=== PATIENT | female | born 1985 | race Caucasian/White ===

== ENCOUNTER 2018-01-10 11:32 | Observation (INO) | payer OTHER, SELFPAY ==
[2018-01-10] VITALS (18 sets, daily range): BP systolic 89–118; BP diastolic 44–73; PULSE 69–121; RESP 10–19; TEMP 36–36.9; O2SAT 95–100; BMI 24.6; BMI 26.2
--- NOTE | 2018-01-10 13:00 | ED.ABDPAIN ---
HPI - Abdominal Pain <Adrianne Jim PA-C - Last Filed: 01/10/18 21:39> General Chief Complaint: Abdominal Pain Stated Complaint: 14 WEEKS , PAIN IN UPPER ABDOMEN Time Seen by Provider: 01/10/18 12:55 Source: patient, family and old records reviewed Mode of arrival: ambulatory Limitations: no limitations History of Present Illness HPI narrative: This 32-year-old female with a history of multiple miscarriage and now at 14 weeks comes in today due to a 3 day history of pain just above the umbilicus. She states it has been tender to touch. She has not noted any increased swelling or redness but states she does have a history of a small hernia there which she can usually reduced on her own if she has pain. She states she has had a little bit of tenderness around her flanks for the last couple of days but this is mild. She has had ongoing nausea with vomiting 5-6 times daily throughout her , but this is worse in the last few days. She states that she has not kept down any food or fluids in the last 2 days. She has not vomited more frequently but he is heaving more. She states that she had a new diagnosis of IBD just prior to learning that she was , so has not had further workup to delineate this yet. She states she has not had any hematuria, dysuria or frequency. She has not had any change in her bowel movements or blood in the stools. She has not had chest pain or dyspnea. She has not had any spotting or vaginal discharge. She denies fever, cough or any recent illness or other new symptoms today. Related Data Home Medications Medication Instructions Recorded Confirmed esomeprazole magnesium [Nexium] 40 mg PO QDAY #0 03/29/16 01/10/18 hydrocodone-acetaminophen 0 tab PO Q6HP PRN 01/10/18 01/10/18 Previous Rx's Medication Instructions Recorded ondansetron [Zofran ODT] 4 mg SUBLINGUAL Q6HP PRN #20 odt 07/25/17 Allergies Allergy/AdvReac Type Severity Reaction Status Date / Time amoxicillin [AMOXICILLIN] Allergy Severe nausea and Verified 01/10/18 17:55 vomiting aspirin Allergy Severe Eye Verified 01/10/18 17:56 [From EXCEDRIN BACK AND BODY] swelling calcium carbonate Allergy Severe eye Verified 01/10/18 17:56 [From EXCEDRIN BACK AND BODY] swelling codeine [CODEINE] Allergy Severe nausea and Verified 01/10/18 17:56 vomiting phenazopyridine Allergy Severe lip Verified 01/10/18 17:56 [From PYRIDIUM] swelling tramadol [TRAMADOL] Allergy Severe nausea and Verified 01/10/18 17:56 vomiting Review of Systems <ROBERTO Valladares Last Filed: 01/10/18 21:39> Review of Systems All systems reviewed & are unremarkable except as noted in HPI and below Exam <ROBERTO Valladares Last Filed: 01/10/18 21:39> Narrative Exam Narrative: GENERAL APPEARANCE: Patient resting comfortably, in no distress. HEENT: PERRL, EOMI, no scleral icterus NECK: Supple LUNGS: Clear to auscultation bilaterally. HEART: Rate and rhythm regular, normal S1 and S2, no S3 or S4. ABDOMEN: Soft, nondistended, bowel sounds present x 4 quadrants, no masses palpable, no hepatosplenomegaly. She is exquisitely tender with even light palpation around the umbilicus, especially just proximal and just distal. No guarding or rebound. No suprapubic tenderness or CVAT. EXTREMITIES: No edema, no cyanosis DERMATOLOGIC: No jaundice or exanthem NEUROLOGIC: Alert and oriented with normal speech and coordination Initial Vital Signs Initial Vital Signs: Vital Signs Pulse Rate 80 01/10/18 12:19 Respiratory Rate 16 01/10/18 12:19 Blood Pressure 101/58 L 01/10/18 12:19 Pulse Oximetry 100 01/10/18 12:19 <Ronal Mayfield DO - Last Filed: 01/12/18 07:18> Initial Vital Signs Initial Vital Signs: Vital Signs Pulse Rate 80 01/10/18 12:19 Respiratory Rate 16 01/10/18 12:19 Blood Pressure 101/58 L 01/10/18 12:19 Pulse Oximetry 100 01/10/18 12:19 Course <ROBERTO Valladares Last Filed: 01/10/18 21:39> Orders Ordered: Discontinued Medications Hydrocodone Bitart/Acetaminophen (Witter 5/325) 1 tab PO NOW ONE Stop: 01/10/18 15:25 Last Admin: 01/10/18 15:41 Dose: 1 tab Hydrocodone Bitart/Acetaminophen (Witter 5/325) 1 tab PO Q6H PRN PRN Reason: Pain (Scale Score 7-10) Last Admin: 01/11/18 16:49 Dose: 1 tab Admin: 01/11/18 00:01 Dose: 1 tab Admin: 01/10/18 20:57 Dose: 1 tab Hydrocodone Bitart/Acetaminophen (Witter 5/325) 2 tab PO Q6H PRN PRN Reason: Pain, Severe (7-10) Last Admin: 01/11/18 16:51 Dose: 2 tab Admin: 01/11/18 12:57 Dose: 2 tab Admin: 01/11/18 05:58 Dose: 2 tab Bisacodyl (Dulcolax) 10 mg IA NOW ONE Stop: 01/11/18 10:18 Last Admin: 01/11/18 11:09 Dose: 10 mg Bupivacaine HCl (Sensorcaine 0.5% (Pf)) 30 ml INJ NOW ONE Stop: 01/10/18 19:20 Last Admin: 01/10/18 19:20 Dose: 20 ml Diphenhydramine HCl (Benadryl) 25 mg IV NOW ONE Stop: 01/10/18 13:25 Last Admin: 01/10/18 19:56 Dose: 25 mg Admin: 01/10/18 13:45 Dose: 25 mg Diphenhydramine HCl (Benadryl) 25 mg IV NOW ONE Stop: 01/10/18 16:56 Last Admin: 01/10/18 16:58 Dose: 25 mg Diphenhydramine HCl (Benadryl) 25 mg IV Q6H PRN PRN Reason: Itching Last Admin: 01/11/18 08:35 Dose: 25 mg Admin: 01/11/18 04:28 Dose: 25 mg Admin: 01/10/18 22:13 Dose: 25 mg Fentanyl (Sublimaze) 25 mcg IV Q5MIN PRN PRN Reason: Pain, Mild (1-3) Last Admin: 01/10/18 20:03 Dose: 25 mcg Admin: 01/10/18 19:43 Dose: 25 mcg Fentanyl (Sublimaze) 50 mcg IV Q5MIN PRN PRN Reason: Pain, Moderate (4-6) Last Admin: 01/10/18 20:11 Dose: 50 mcg Admin: 01/10/18 19:57 Dose: 50 mcg Sodium Chloride (Normal Saline 0.9%) 1,000 mls @ 1,000 mls/hr IV BOLUS ONE Stop: 01/10/18 14:19 Last Infusion: 01/10/18 14:56 Dose: 0 mls/hr Admin: 01/10/18 13:45 Dose: 1,000 mls/hr Sodium Chloride (Normal Saline 0.9%) 1,000 mls @ 1,000 mls/hr IV BOLUS ONE Stop: 01/10/18 15:56 Last Infusion: 01/10/18 15:41 Dose: 0 mls/hr Admin: 01/10/18 15:00 Dose: 1,000 mls/hr Lactated Ringer's (Lactated Ringers) 1,000 mls @ 42 mls/hr IV CONT [facility] Last Admin: 01/10/18 17:35 Dose: 42 mls/hr Dextrose/Sodium Chloride (Dextrose 5%-0.45% Ns) 1,000 mls @ 75 mls/hr IV CONT [facility] Last Admin: 01/11/18 08:41 Dose: 75 mls/hr Promethazine HCl 25 mg/ Sodium (Chloride) 51 mls @ 204 mls/hr IV Q6HR PRN PRN Reason: Nausea Last Admin: 01/11/18 11:33 Dose: 204 mls/hr Metoclopramide HCl (Reglan) 10 mg IV NOW ONE Stop: 01/10/18 17:08 Last Admin: 01/10/18 17:28 Dose: 10 mg Morphine Sulfate (Morphine) 2 mg IV NOW ONE Stop: 01/11/18 08:14 Last Admin: 01/11/18 09:04 Dose: 2 mg Non-Formulary Medication (Esomeprazole Magnesium [Nexium]) 40 mg PO DAILY [facility] Last Admin: 01/11/18 08:35 Dose: Ondansetron HCl (Zofran Odt) 4 mg PO Q4HR PRN PRN Reason: Nausea Last Admin: 01/11/18 16:45 Dose: 4 mg Admin: 01/10/18 13:12 Dose: 4 mg Ondansetron HCl (Zofran) 4 mg IV NOW ONE Stop: 01/10/18 16:56 Last Admin: 01/10/18 19:55 Dose: 4 mg Admin: 01/10/18 16:58 Dose: 4 mg Ondansetron HCl (Zofran Odt) 4 mg PO Q6H PRN PRN Reason: Nausea Last Admin: 01/11/18 04:36 Dose: 4 mg Admin: 01/10/18 22:13 Dose: 4 mg Ondansetron HCl (Zofran Odt) 8 mg PO Q8HR PRN PRN Reason: Nausea Last Admin: 01/11/18 16:46 Dose: 8 mg Admin: 01/11/18 08:36 Dose: 8 mg Oxycodone HCl (Percolone) 5 mg PO Q30MIN PRN PRN Reason: Mild or moderate pain Sodium Chloride (Normal Saline 0.9% Flush) 10 ml IV BID FRANCHESCA Last Admin: 01/11/18 08:34 Dose: 10 ml Sodium Chloride (Normal Saline 0.9% Flush) 10 ml IV PRN PRN PRN Reason: Flush Last Admin: 01/11/18 04:28 Dose: 10 ml Admin: 01/11/18 00:15 Dose: 10 ml Vital Signs - 8 hr 01/10/18 14:36 01/10/18 16:01 01/10/18 17:29 Temperature 98.1 F Pulse Rate 71 70 90 Respiratory Rate 16 14 16 Blood Pressure 109/71 Blood Pressure [Left Arm] 89/44 L 103/72 Pulse Oximetry 99 99 95 01/10/18 19:30 01/10/18 19:35 01/10/18 19:40 Temperature 96.8 F L Pulse Rate 91 H 69 74 Respiratory Rate 14 14 11 L Blood Pressure 103/63 92/59 L 97/58 L Blood Pressure [Left Arm] Pulse Oximetry 100 100 100 01/10/18 19:45 01/10/18 19:50 01/10/18 20:00 Temperature Pulse Rate 78 91 H 75 Respiratory Rate 11 L 14 10 L Blood Pressure 106/67 114/73 112/62 Blood Pressure [Left Arm] Pulse Oximetry 100 100 100 01/10/18 20:10 01/10/18 20:39 01/10/18 21:13 Temperature 97.4 F L 97.6 F 97.8 F Pulse Rate 90 81 77 Respiratory Rate 16 18 19 Blood Pressure 101/63 118/69 105/62 Blood Pressure [Left Arm] Pulse Oximetry 100 100 <Ronal Lanker, DO - Last Filed: 01/12/18 07:18> Orders Ordered: Discontinued Medications Hydrocodone Bitart/Acetaminophen (Witter 5/325) 1 tab PO NOW ONE Stop: 01/10/18 15:25 Last Admin: 01/10/18 15:41 Dose: 1 tab Hydrocodone Bitart/Acetaminophen (Witter 5/325) 1 tab PO Q6H PRN PRN Reason: Pain (Scale Score 7-10) Last Admin: 01/11/18 16:49 Dose: 1 tab Admin: 01/11/18 00:01 Dose: 1 tab Admin: 01/10/18 20:57 Dose: 1 tab Hydrocodone Bitart/Acetaminophen (Witter 5/325) 2 tab PO Q6H PRN PRN Reason: Pain, Severe (7-10) Last Admin: 01/11/18 16:51 Dose: 2 tab Admin: 01/11/18 12:57 Dose: 2 tab Admin: 01/11/18 05:58 Dose: 2 tab Bisacodyl (Dulcolax) 10 mg IA NOW ONE Stop: 01/11/18 10:18 Last Admin: 01/11/18 11:09 Dose: 10 mg Bupivacaine HCl (Sensorcaine 0.5% (Pf)) 30 ml INJ NOW ONE Stop: 01/10/18 19:20 Last Admin: 01/10/18 19:20 Dose: 20 ml Diphenhydramine HCl (Benadryl) 25 mg IV NOW ONE Stop: 01/10/18 13:25 Last Admin: 01/10/18 19:56 Dose: 25 mg Admin: 01/10/18 13:45 Dose: 25 mg Diphenhydramine HCl (Benadryl) 25 mg IV NOW ONE Stop: 01/10/18 16:56 Last Admin: 01/10/18 16:58 Dose: 25 mg Diphenhydramine HCl (Benadryl) 25 mg IV Q6H PRN PRN Reason: Itching Last Admin: 01/11/18 08:35 Dose: 25 mg Admin: 01/11/18 04:28 Dose: 25 mg Admin: 01/10/18 22:13 Dose: 25 mg Fentanyl (Sublimaze) 25 mcg IV Q5MIN PRN PRN Reason: Pain, Mild (1-3) Last Admin: 01/10/18 20:03 Dose: 25 mcg Admin: 01/10/18 19:43 Dose: 25 mcg Fentanyl (Sublimaze) 50 mcg IV Q5MIN PRN PRN Reason: Pain, Moderate (4-6) Last Admin: 01/10/18 20:11 Dose: 50 mcg Admin: 01/10/18 19:57 Dose: 50 mcg Sodium Chloride (Normal Saline 0.9%) 1,000 mls @ 1,000 mls/hr IV BOLUS ONE Stop: 01/10/18 14:19 Last Infusion: 01/10/18 14:56 Dose: 0 mls/hr Admin: 01/10/18 13:45 Dose: 1,000 mls/hr Sodium Chloride (Normal Saline 0.9%) 1,000 mls @ 1,000 mls/hr IV BOLUS ONE Stop: 01/10/18 15:56 Last Infusion: 01/10/18 15:41 Dose: 0 mls/hr Admin: 01/10/18 15:00 Dose: 1,000 mls/hr Lactated Ringer's (Lactated Ringers) 1,000 mls @ 42 mls/hr IV [facility] Last Admin: 01/10/18 17:35 Dose: 42 mls/hr Dextrose/Sodium Chloride (Dextrose 5%-0.45% Ns) 1,000 mls @ 75 mls/hr IV CONT [facility] Last Admin: 01/11/18 08:41 Dose: 75 mls/hr Promethazine HCl 25 mg/ Sodium (Chloride) 51 mls @ 204 mls/hr IV Q6HR PRN PRN Reason: Nausea Last Admin: 01/11/18 11:33 Dose: 204 mls/hr Metoclopramide HCl (Reglan) 10 mg IV NOW ONE Stop: 01/10/18 17:08 Last Admin: 01/10/18 17:28 Dose: 10 mg Morphine Sulfate (Morphine) 2 mg IV NOW ONE Stop: 01/11/18 08:14 Last Admin: 01/11/18 09:04 Dose: 2 mg Non-Formulary Medication (Esomeprazole Magnesium [Nexium]) 40 mg PO DAILY [facility] Last Admin: 01/11/18 08:35 Dose: Ondansetron HCl (Zofran Odt) 4 mg PO Q4HR PRN PRN Reason: Nausea Last Admin: 01/11/18 16:45 Dose: 4 mg Admin: 01/10/18 13:12 Dose: 4 mg Ondansetron HCl (Zofran) 4 mg IV NOW ONE Stop: 01/10/18 16:56 Last Admin: 01/10/18 19:55 Dose: 4 mg Admin: 01/10/18 16:58 Dose: 4 mg Ondansetron HCl (Zofran Odt) 4 mg PO Q6H PRN PRN Reason: Nausea Last Admin: 01/11/18 04:36 Dose: 4 mg Admin: 01/10/18 22:13 Dose: 4 mg Ondansetron HCl (Zofran Odt) 8 mg PO Q8HR PRN PRN Reason: Nausea Last Admin: 01/11/18 16:46 Dose: 8 mg Admin: 01/11/18 08:36 Dose: 8 mg Oxycodone HCl (Percolone) 5 mg PO Q30MIN PRN PRN Reason: Mild or moderate pain Sodium Chloride (Normal Saline 0.9% Flush) 10 ml IV BID FRANCHESCA Last Admin: 01/11/18 08:34 Dose: 10 ml Sodium Chloride (Normal Saline 0.9% Flush) 10 ml IV PRN PRN PRN Reason: Flush Last Admin: 01/11/18 04:28 Dose: 10 ml Admin: 01/11/18 00:15 Dose: 10 ml Vital Signs - 8 hr 01/10/18 14:36 01/10/18 16:01 01/10/18 17:29 Temperature 98.1 F Pulse Rate 71 70 90 Respiratory Rate 16 14 16 Blood Pressure 109/71 Blood Pressure [Left Arm] 89/44 L 103/72 Pulse Oximetry 99 99 95 01/10/18 19:30 01/10/18 19:35 01/10/18 19:40 Temperature 96.8 F L Pulse Rate 91 H 69 74 Respiratory Rate 14 14 11 L Blood Pressure 103/63 92/59 L 97/58 L Blood Pressure [Left Arm] Pulse Oximetry 100 100 100 01/10/18 19:45 01/10/18 19:50 01/10/18 20:00 Temperature Pulse Rate 78 91 H 75 Respiratory Rate 11 L 14 10 L Blood Pressure 106/67 114/73 112/62 Blood Pressure [Left Arm] Pulse Oximetry 100 100 100 01/10/18 20:10 01/10/18 20:39 01/10/18 21:13 Temperature 97.4 F L 97.6 F 97.8 F Pulse Rate 90 81 77 Respiratory Rate 16 18 19 Blood Pressure 101/63 118/69 105/62 Blood Pressure [Left Arm] Pulse Oximetry 100 100 MDM - Abdominal Pain <Adrianne Jim PA-C - Last Filed: 01/10/18 21:39> Lab Data Result diagrams: 01/10/18 13:35 01/10/18 13:35 Lab Results 01/10/18 01/10/18 01/10/18 Range/Units 13:35 13:35 14:00 WBC 7.2 (4.5-11.0) X10^3/uL RBC 3.99 L (4.0-5.2) X10^6/uL Hgb 12.2 (12.0-16.0) g/dL Hct 35.3 L (36-46) % MCV 88.5 (80-100) fL MCH 30.6 (26-34) PG MCHC 34.5 (30-36) % RDW 13.0 (11.6-14.8) % Plt Count 234 (150-400) X10^3/uL Neut % (Auto) 77.5 H (50-75) % Lymph % (Auto) 17.9 L (25-40) % [place] % (Auto) 3.9 (3-14) % Eos % (Auto) 0.4 L (2-4) % Baso % (Auto) 0.3 (0-2) % Neut # (Auto) 5600 (0350-6889) /uL Sodium 138 (137-145) mmol/L Potassium 3.5 (3.4-5.1) mmol/L Chloride 102 (98-107) mmol/L Carbon Dioxide 26 (22-32) mmol/L BUN 10 (7-17) mg/dL Creatinine 0.50 L (0.52-1.04) mg/dL Estimated GFR > 60.0 (>60) mL/min BUN/Creatinine Ratio 20.0 (6-22) Glucose 79 (70-100) mg/dL Lactate < 0.5 L (0.7-2.1) mmol/L Calcium 8.6 (8.4-10.2) mg/dL Total Bilirubin 0.4 (0.2-1.3) mg/dL AST 16 (14-36) IU/L ALT 19 (9-52) IU/L Alkaline Phosphatase 48 (38-126) U/L Total Protein 7.0 (6.3-8.2) g/dL Albumin 3.9 (3.5-5.0) g/dL Globulin 3.1 (1.7-4.1) g/dL Albumin/Globulin Ratio 1.3 (1.0-2.8) Lipase 80 (23-300) U/L Imaging Data US - abdomen: Radiologist's impression: View Report History Print [address] [address] Ultrasound Report Signed Patient: Sepideh Scott MR#: [id number] : 1985 Acct:[id number] Age/Sex: 32 / F Date of Service: 01/10/18 Loc: ED Accession Number: [id number] Procedure: US abdomen complete Ordering Provider: Adrianne Jim P.A-C PROCEDURE: US ABDOMEN COMPLETE INDICATIONS: PERIUMBILICAL HERNIA; PAIN TECHNIQUE: Real-time scanning was performed of the abdominal and retroperitoneal organs, with image documentation. COMPARISON: [facility], , ABDOMEN COMPLETE, 07/25/2017, 11:09. [facility], , US OB LIMITED, 01/10/2018, 14:25. FINDINGS: Liver: Liver is normal in size and homogeneous in echotexture. Gallbladder: No gallstones. No gallbladder wall thickening, pericholecystic fluid or sonographic Carreon's sign. Biliary ducts: Intrahepatic bile ducts are non-dilated. Extrahepatic bile duct caliber measures 4.1 mm. Normal is 6-7 mm or less in diameter, or 10 mm or less post-cholecystectomy. Pancreas: Visualized portions of the pancreas are sonographically normal. Spleen: Spleen is normal in size and homogeneous in echotexture. Kidneys: Kidneys are normal in size and echotexture. Right kidney measures 10.8 cm long; left kidney measures 10.0 cm long. No hydronephrosis or nephrolithiasis. No solid masses. Aorta: Visualized aorta is normal in caliber at less than 3 cm. Iliacs: Proximal common iliac arteries are normal in caliber at less than 2.5 cm. IVC: Intrahepatic inferior vena cava is patent. Miscellaneous: No free abdominal fluid. There is a periumbilical hernia measuring 1.7 x 1.7 x 2.0 cm, which may contain follow up. Thin intrauterine is noted (please see separate OB ultrasound report). IMPRESSION: 1. A 1.7 x 1.7 x 2.0 cm periumbilical hernia which may contain bowel loops. 2. Otherwise normal abdominal ultrasound exam. No acute intra-abdominal process identified. 3. An IUP is noted. Please see separate OB ultrasound report. Dictated by: Óscar Jones M.D. on 01/10/2018 at 15:23 Approved by: Óscar Jones M.D. on 01/10/2018 at 15:28 [place] [address] Ultrasound Report Signed Patient: Sepideh Scott MR#: [id number] : 1985 Acct:[id number] Age/Sex: 32 / F Date of Service: 01/10/18 Loc: ED Accession Number: [id number] Procedure: US OB >= 14 weeks Fetus Ordering Provider: Adrianne Jim P.A-C PROCEDURE: US OB LIMITED INDICATIONS: pain, mult misc OUTSIDE/PRIOR DATING DATA: Last menstrual period (LMP): 10/04/2017. LMP-based estimated date of delivery (MONSERRAT): 07/11/2018. First dating scan (date and location): 01/10/2018. Estimated date of delivery (MONSERRAT) from first dating scan: 07/04/2018. TECHNIQUE: Real-time scanning was performed of the fetus, with image documentation and biometric measurements. Endovaginal scanning: Not requested COMPARISON: None. FINDINGS: General: A single living intrauterine gestation is present. Presentation: A vertex. Placenta: Placental position is anterior, without previa. Amniotic fluid index: Not measured. heart rate: 152 beats per minute. Maternal cervical canal: Not visualized. biometrics: Biparietal diameter: 15 weeks 3 days Head circumference: 15 weeks 1 day Abdominal circumference: 14 weeks 6 days Femur length: 14 weeks 2 days Estimated gestational age from initial scan: not applicable. Composite gestational age from present scan: 15 weeks 0 day Estimated weight and percentile: n.a. Measurement variability for biometric dating: +/- 7 days from 14 weeks to 15 weeks 6 days gestation, +/- 10 days from 16 weeks to 21 weeks 6 days gestation, +/- 2 weeks from 22 weeks to 27 weeks 6 days gestation, +/- 3 weeks for 28 weeks gestation or later. weight reference: 4500 g or EFW >90/95% is considered macrosomia or large for gestational age. EFW <10% is small for gestational age. EFW 5% or less is considered intra-uterine growth restriction. Other: Not applicable. IMPRESSION: 1. A single living intrauterine gestation with the estimated gestational age of 15 weeks 0 day corresponding to ultrasound MONSERRAT 07/04/2018. 2. Fetus in vertex presentation. Cervix is not visualized. Dictated by: Óscar Jones M.D. on 01/10/2018 at 15:29 Approved by: Óscar Jones M.D. on 01/10/2018 at 15:34 <Ronal Mayfield DO - Last Filed: 01/12/18 07:18> Lab Data Lab Results 01/10/18 01/10/18 01/10/18 Range/Units 13:35 13:35 14:00 WBC 7.2 (4.5-11.0) X10^3/uL RBC 3.99 L (4.0-5.2) X10^6/uL Hgb 12.2 (12.0-16.0) g/dL Hct 35.3 L (36-46) % MCV 88.5 (80-100) fL MCH 30.6 (26-34) PG MCHC 34.5 (30-36) % RDW 13.0 (11.6-14.8) % Plt Count 234 (150-400) X10^3/uL Neut % (Auto) 77.5 H (50-75) % Lymph % (Auto) 17.9 L (25-40) % [place] % (Auto) 3.9 (3-14) % Eos % (Auto) 0.4 L (2-4) % Baso % (Auto) 0.3 (0-2) % Neut # (Auto) 5600 (5500-7576) /uL Sodium 138 (137-145) mmol/L Potassium 3.5 (3.4-5.1) mmol/L Chloride 102 (98-107) mmol/L Carbon Dioxide 26 (22-32) mmol/L BUN 10 (7-17) mg/dL Creatinine 0.50 L (0.52-1.04) mg/dL Estimated GFR > 60.0 (>60) mL/min BUN/Creatinine Ratio 20.0 (6-22) Glucose 79 (70-100) mg/dL Lactate < 0.5 L (0.7-2.1) mmol/L Calcium 8.6 (8.4-10.2) mg/dL Total Bilirubin 0.4 (0.2-1.3) mg/dL AST 16 (14-36) IU/L ALT 19 (9-52) IU/L Alkaline Phosphatase 48 (38-126) U/L Total Protein 7.0 (6.3-8.2) g/dL Albumin 3.9 (3.5-5.0) g/dL Globulin 3.1 (1.7-4.1) g/dL Albumin/Globulin Ratio 1.3 (1.0-2.8) Lipase 80 (23-300) U/L Discharge Plan Departure Patient Disposition: Admitted As Inpatient Discharge Date/Time: 01/10/18 17:21 Interventions: ED Discharge Assessment Last Done: 01/10/18 17:19 Instructions: Ventral Hernia, DI for Ventral Hernia Admit Date/Time: 01/10/18 17:09 Admit Provider: Raffy Hong Forms: Surgery Discharge <Ronal Mayfield DO - Last Filed: 01/12/18 07:18> Cosign ED Attending Abdirizakature Attestation: I was available for consultation during this patient's emergency department encounter
[2018-01-10] MEDS: ONDANSETRON 4 MG ODT PO ×2 (13:12→22:13)
--- NOTE | 2018-01-10 13:19 | DI.US.S_ITS ---
PROCEDURE: US OB LIMITED INDICATIONS: pain, mult misc OUTSIDE/PRIOR DATING DATA: Last menstrual period (LMP): 10/04/2017. LMP-based estimated date of delivery (MONSERRAT): 07/11/2018. First dating scan (date and location): 01/10/2018. Estimated date of delivery (MONSERRAT) from first dating scan: 07/04/2018. TECHNIQUE: Real-time scanning was performed of the fetus, with image documentation and biometric measurements. Endovaginal scanning: Not requested COMPARISON: None. FINDINGS: General: A single living intrauterine gestation is present. Presentation: A vertex. Placenta: Placental position is anterior, without previa. Amniotic fluid index: Not measured. heart rate: 152 beats per minute. Maternal cervical canal: Not visualized. biometrics: Biparietal diameter: 15 weeks 3 days Head circumference: 15 weeks 1 day Abdominal circumference: 14 weeks 6 days Femur length: 14 weeks 2 days Estimated gestational age from initial scan: not applicable. Composite gestational age from present scan: 15 weeks 0 day Estimated weight and percentile: n.a. Measurement variability for biometric dating: +/- 7 days from 14 weeks to 15 weeks 6 days gestation, +/- 10 days from 16 weeks to 21 weeks 6 days gestation, +/- 2 weeks from 22 weeks to 27 weeks 6 days gestation, +/- 3 weeks for 28 weeks gestation or later. weight reference: 4500 g or EFW >90/95% is considered macrosomia or large for gestational age. EFW <10% is small for gestational age. EFW 5% or less is considered intra-uterine growth restriction. Other: Not applicable. IMPRESSION: 1. A single living intrauterine gestation with the estimated gestational age of 15 weeks 0 day corresponding to ultrasound MONSERRAT 07/04/2018. 2. Fetus in vertex presentation. Cervix is not visualized. Dictated by: Óscar Jones M.D. on 01/10/2018 at 15:29 Approved by: Óscar Jones M.D. on 01/10/2018 at 15:34
--- NOTE | 2018-01-10 13:19 | DI.US.S_ITS ---
PROCEDURE: US ABDOMEN COMPLETE INDICATIONS: PERIUMBILICAL HERNIA; PAIN TECHNIQUE: Real-time scanning was performed of the abdominal and retroperitoneal organs, with image documentation. COMPARISON: [facility], US, ABDOMEN COMPLETE, 07/25/2017, 11:09. [facility], US, US OB LIMITED, 01/10/2018, 14:25. FINDINGS: Liver: Liver is normal in size and homogeneous in echotexture. Gallbladder: No gallstones. No gallbladder wall thickening, pericholecystic fluid or sonographic Carreon's sign. Biliary ducts: Intrahepatic bile ducts are non-dilated. Extrahepatic bile duct caliber measures 4.1 mm. Normal is 6-7 mm or less in diameter, or 10 mm or less post-cholecystectomy. Pancreas: Visualized portions of the pancreas are sonographically normal. Spleen: Spleen is normal in size and homogeneous in echotexture. Kidneys: Kidneys are normal in size and echotexture. Right kidney measures 10.8 cm long; left kidney measures 10.0 cm long. No hydronephrosis or nephrolithiasis. No solid masses. Aorta: Visualized aorta is normal in caliber at less than 3 cm. Iliacs: Proximal common iliac arteries are normal in caliber at less than 2.5 cm. IVC: Intrahepatic inferior vena cava is patent. Miscellaneous: No free abdominal fluid. There is a periumbilical hernia measuring 1.7 x 1.7 x 2.0 cm, which may contain follow up. Thin intrauterine is noted (please see separate OB ultrasound report). IMPRESSION: 1. A 1.7 x 1.7 x 2.0 cm periumbilical hernia which may contain bowel loops. 2. Otherwise normal abdominal ultrasound exam. No acute intra-abdominal process identified. 3. An IUP is noted. Please see separate OB ultrasound report. Dictated by: Óscar Jones M.D. on 01/10/2018 at 15:23 Approved by: Óscar Jones M.D. on 01/10/2018 at 15:28
--- NOTE | 2018-01-10 13:24 | ED_ITS ---
HPI - Abdominal Pain <Adrianne Jim PA-C - Last Filed: 01/10/18 21:39> General Chief Complaint: Abdominal Pain Stated Complaint: 14 WEEKS , PAIN IN UPPER ABDOMEN Time Seen by Provider: 01/10/18 12:55 Source: patient, family and old records reviewed Mode of arrival: ambulatory Limitations: no limitations History of Present Illness HPI narrative: This 32-year-old female with a history of multiple miscarriage and now at 14 weeks comes in today due to a 3 day history of pain just above the umbilicus. She states it has been tender to touch. She has not noted any increased swelling or redness but states she does have a history of a small hernia there which she can usually reduced on her own if she has pain. She states she has had a little bit of tenderness around her flanks for the last couple of days but this is mild. She has had ongoing nausea with vomiting 5-6 times daily throughout her , but this is worse in the last few days. She states that she has not kept down any food or fluids in the last 2 days. She has not vomited more frequently but he is heaving more. She states that she had a new diagnosis of IBD just prior to learning that she was , so has not had further workup to delineate this yet. She states she has not had any hematuria, dysuria or frequency. She has not had any change in her bowel movements or blood in the stools. She has not had chest pain or dyspnea. She has not had any spotting or vaginal discharge. She denies fever, cough or any recent illness or other new symptoms today. Related Data Home Medications Medication Instructions Recorded Confirmed esomeprazole magnesium [Nexium] 40 mg PO QDAY #0 03/29/16 01/10/18 hydrocodone-acetaminophen 0 tab PO Q6HP PRN 01/10/18 01/10/18 Previous Rx's Medication Instructions Recorded ondansetron [Zofran ODT] 4 mg SUBLINGUAL Q6HP PRN #20 odt 07/25/17 Allergies Allergy/AdvReac Type Severity Reaction Status Date / Time amoxicillin [AMOXICILLIN] Allergy Severe nausea and Verified 01/10/18 17:55 vomiting aspirin Allergy Severe Eye Verified 01/10/18 17:56 [From EXCEDRIN BACK AND BODY] swelling calcium carbonate Allergy Severe eye Verified 01/10/18 17:56 [From EXCEDRIN BACK AND BODY] swelling codeine [CODEINE] Allergy Severe nausea and Verified 01/10/18 17:56 vomiting phenazopyridine Allergy Severe lip Verified 01/10/18 17:56 [From PYRIDIUM] swelling tramadol [TRAMADOL] Allergy Severe nausea and Verified 01/10/18 17:56 vomiting Review of Systems <ROBERTO Valladares Last Filed: 01/10/18 21:39> Review of Systems All systems reviewed & are unremarkable except as noted in HPI and below Exam <ROBERTO Valladares Last Filed: 01/10/18 21:39> Narrative Exam Narrative: GENERAL APPEARANCE: Patient resting comfortably, in no distress. HEENT: PERRL, EOMI, no scleral icterus NECK: Supple LUNGS: Clear to auscultation bilaterally. HEART: Rate and rhythm regular, normal S1 and S2, no S3 or S4. ABDOMEN: Soft, nondistended, bowel sounds present x 4 quadrants, no masses palpable, no hepatosplenomegaly. She is exquisitely tender with even light palpation around the umbilicus, especially just proximal and just distal. No guarding or rebound. No suprapubic tenderness or CVAT. EXTREMITIES: No edema, no cyanosis DERMATOLOGIC: No jaundice or exanthem NEUROLOGIC: Alert and oriented with normal speech and coordination Initial Vital Signs Initial Vital Signs: Vital Signs Pulse Rate 80 01/10/18 12:19 Respiratory Rate 16 01/10/18 12:19 Blood Pressure 101/58 L 01/10/18 12:19 Pulse Oximetry 100 01/10/18 12:19 <Ronal Mayfield DO - Last Filed: 01/12/18 07:18> Initial Vital Signs Initial Vital Signs: Vital Signs Pulse Rate 80 01/10/18 12:19 Respiratory Rate 16 01/10/18 12:19 Blood Pressure 101/58 L 01/10/18 12:19 Pulse Oximetry 100 01/10/18 12:19 Course <ROBERTO Valladares Last Filed: 01/10/18 21:39> Orders Ordered: Discontinued Medications Hydrocodone Bitart/Acetaminophen ([place] 5/325) 1 tab PO NOW ONE Stop: 01/10/18 15:25 Last Admin: 01/10/18 15:41 Dose: 1 tab Hydrocodone Bitart/Acetaminophen ([place] 5/325) 1 tab PO Q6H PRN PRN Reason: Pain (Scale Score 7-10) Last Admin: 01/11/18 16:49 Dose: 1 tab Admin: 01/11/18 00:01 Dose: 1 tab Admin: 01/10/18 20:57 Dose: 1 tab Hydrocodone Bitart/Acetaminophen ([place] 5/325) 2 tab PO Q6H PRN PRN Reason: Pain, Severe (7-10) Last Admin: 01/11/18 16:51 Dose: 2 tab Admin: 01/11/18 12:57 Dose: 2 tab Admin: 01/11/18 05:58 Dose: 2 tab Bisacodyl (Dulcolax) 10 mg TN NOW ONE Stop: 01/11/18 10:18 Last Admin: 01/11/18 11:09 Dose: 10 mg Bupivacaine HCl (Sensorcaine 0.5% (Pf)) 30 ml INJ NOW ONE Stop: 01/10/18 19:20 Last Admin: 01/10/18 19:20 Dose: 20 ml Diphenhydramine HCl (Benadryl) 25 mg IV NOW ONE Stop: 01/10/18 13:25 Last Admin: 01/10/18 19:56 Dose: 25 mg Admin: 01/10/18 13:45 Dose: 25 mg Diphenhydramine HCl (Benadryl) 25 mg IV NOW ONE Stop: 01/10/18 16:56 Last Admin: 01/10/18 16:58 Dose: 25 mg Diphenhydramine HCl (Benadryl) 25 mg IV Q6H PRN PRN Reason: Itching Last Admin: 01/11/18 08:35 Dose: 25 mg Admin: 01/11/18 04:28 Dose: 25 mg Admin: 01/10/18 22:13 Dose: 25 mg Fentanyl (Sublimaze) 25 mcg IV Q5MIN PRN PRN Reason: Pain, Mild (1-3) Last Admin: 01/10/18 20:03 Dose: 25 mcg Admin: 01/10/18 19:43 Dose: 25 mcg Fentanyl (Sublimaze) 50 mcg IV Q5MIN PRN PRN Reason: Pain, Moderate (4-6) Last Admin: 01/10/18 20:11 Dose: 50 mcg Admin: 01/10/18 19:57 Dose: 50 mcg Sodium Chloride (Normal Saline 0.9%) 1,000 mls @ 1,000 mls/hr IV BOLUS ONE Stop: 01/10/18 14:19 Last Infusion: 01/10/18 14:56 Dose: 0 mls/hr Admin: 01/10/18 13:45 Dose: 1,000 mls/hr Sodium Chloride (Normal Saline 0.9%) 1,000 mls @ 1,000 mls/hr IV BOLUS ONE Stop: 01/10/18 15:56 Last Infusion: 01/10/18 15:41 Dose: 0 mls/hr Admin: 01/10/18 15:00 Dose: 1,000 mls/hr Lactated Ringer's (Lactated Ringers) 1,000 mls @ 42 mls/hr IV CONT [facility] Last Admin: 01/10/18 17:35 Dose: 42 mls/hr Dextrose/Sodium Chloride (Dextrose 5%-0.45% Ns) 1,000 mls @ 75 mls/hr IV CONT [facility] Last Admin: 01/11/18 08:41 Dose: 75 mls/hr Promethazine HCl 25 mg/ Sodium (Chloride) 51 mls @ 204 mls/hr IV Q6HR PRN PRN Reason: Nausea Last Admin: 01/11/18 11:33 Dose: 204 mls/hr Metoclopramide HCl (Reglan) 10 mg IV NOW ONE Stop: 01/10/18 17:08 Last Admin: 01/10/18 17:28 Dose: 10 mg Morphine Sulfate (Morphine) 2 mg IV NOW ONE Stop: 01/11/18 08:14 Last Admin: 01/11/18 09:04 Dose: 2 mg Non-Formulary Medication (Esomeprazole Magnesium [Nexium]) 40 mg PO DAILY [facility] Last Admin: 01/11/18 08:35 Dose: Ondansetron HCl (Zofran Odt) 4 mg PO Q4HR PRN PRN Reason: Nausea Last Admin: 01/11/18 16:45 Dose: 4 mg Admin: 01/10/18 13:12 Dose: 4 mg Ondansetron HCl (Zofran) 4 mg IV NOW ONE Stop: 01/10/18 16:56 Last Admin: 01/10/18 19:55 Dose: 4 mg Admin: 01/10/18 16:58 Dose: 4 mg Ondansetron HCl (Zofran Odt) 4 mg PO Q6H PRN PRN Reason: Nausea Last Admin: 01/11/18 04:36 Dose: 4 mg Admin: 01/10/18 22:13 Dose: 4 mg Ondansetron HCl (Zofran Odt) 8 mg PO Q8HR PRN PRN Reason: Nausea Last Admin: 01/11/18 16:46 Dose: 8 mg Admin: 01/11/18 08:36 Dose: 8 mg Oxycodone HCl (Percolone) 5 mg PO Q30MIN PRN PRN Reason: Mild or moderate pain Sodium Chloride (Normal Saline 0.9% Flush) 10 ml IV BID FRANCHESCA Last Admin: 01/11/18 08:34 Dose: 10 ml Sodium Chloride (Normal Saline 0.9% Flush) 10 ml IV PRN PRN PRN Reason: Flush Last Admin: 01/11/18 04:28 Dose: 10 ml Admin: 01/11/18 00:15 Dose: 10 ml Vital Signs - 8 hr 01/10/18 14:36 01/10/18 16:01 01/10/18 17:29 Temperature 98.1 F Pulse Rate 71 70 90 Respiratory Rate 16 14 16 Blood Pressure 109/71 Blood Pressure [Left Arm] 89/44 L 103/72 Pulse Oximetry 99 99 95 01/10/18 19:30 01/10/18 19:35 01/10/18 19:40 Temperature 96.8 F L Pulse Rate 91 H 69 74 Respiratory Rate 14 14 11 L Blood Pressure 103/63 92/59 L 97/58 L Blood Pressure [Left Arm] Pulse Oximetry 100 100 100 01/10/18 19:45 01/10/18 19:50 01/10/18 20:00 Temperature Pulse Rate 78 91 H 75 Respiratory Rate 11 L 14 10 L Blood Pressure 106/67 114/73 112/62 Blood Pressure [Left Arm] Pulse Oximetry 100 100 100 01/10/18 20:10 01/10/18 20:39 01/10/18 21:13 Temperature 97.4 F L 97.6 F 97.8 F Pulse Rate 90 81 77 Respiratory Rate 16 18 19 Blood Pressure 101/63 118/69 105/62 Blood Pressure [Left Arm] Pulse Oximetry 100 100 <Ronal Lanker, DO - Last Filed: 01/12/18 07:18> Orders Ordered: Discontinued Medications Hydrocodone Bitart/Acetaminophen ([place] 5/325) 1 tab PO NOW ONE Stop: 01/10/18 15:25 Last Admin: 01/10/18 15:41 Dose: 1 tab Hydrocodone Bitart/Acetaminophen ([place] 5/325) 1 tab PO Q6H PRN PRN Reason: Pain (Scale Score 7-10) Last Admin: 01/11/18 16:49 Dose: 1 tab Admin: 01/11/18 00:01 Dose: 1 tab Admin: 01/10/18 20:57 Dose: 1 tab Hydrocodone Bitart/Acetaminophen ([place] 5/325) 2 tab PO Q6H PRN PRN Reason: Pain, Severe (7-10) Last Admin: 01/11/18 16:51 Dose: 2 tab Admin: 01/11/18 12:57 Dose: 2 tab Admin: 01/11/18 05:58 Dose: 2 tab Bisacodyl (Dulcolax) 10 mg TN NOW ONE Stop: 01/11/18 10:18 Last Admin: 01/11/18 11:09 Dose: 10 mg Bupivacaine HCl (Sensorcaine 0.5% (Pf)) 30 ml INJ NOW ONE Stop: 01/10/18 19:20 Last Admin: 01/10/18 19:20 Dose: 20 ml Diphenhydramine HCl (Benadryl) 25 mg IV NOW ONE Stop: 01/10/18 13:25 Last Admin: 01/10/18 19:56 Dose: 25 mg Admin: 01/10/18 13:45 Dose: 25 mg Diphenhydramine HCl (Benadryl) 25 mg IV NOW ONE Stop: 01/10/18 16:56 Last Admin: 01/10/18 16:58 Dose: 25 mg Diphenhydramine HCl (Benadryl) 25 mg IV Q6H PRN PRN Reason: Itching Last Admin: 01/11/18 08:35 Dose: 25 mg Admin: 01/11/18 04:28 Dose: 25 mg Admin: 01/10/18 22:13 Dose: 25 mg Fentanyl (Sublimaze) 25 mcg IV Q5MIN PRN PRN Reason: Pain, Mild (1-3) Last Admin: 01/10/18 20:03 Dose: 25 mcg Admin: 01/10/18 19:43 Dose: 25 mcg Fentanyl (Sublimaze) 50 mcg IV Q5MIN PRN PRN Reason: Pain, Moderate (4-6) Last Admin: 01/10/18 20:11 Dose: 50 mcg Admin: 01/10/18 19:57 Dose: 50 mcg Sodium Chloride (Normal Saline 0.9%) 1,000 mls @ 1,000 mls/hr IV BOLUS ONE Stop: 01/10/18 14:19 Last Infusion: 01/10/18 14:56 Dose: 0 mls/hr Admin: 01/10/18 13:45 Dose: 1,000 mls/hr Sodium Chloride (Normal Saline 0.9%) 1,000 mls @ 1,000 mls/hr IV BOLUS ONE Stop: 01/10/18 15:56 Last Infusion: 01/10/18 15:41 Dose: 0 mls/hr Admin: 01/10/18 15:00 Dose: 1,000 mls/hr Lactated Ringer's (Lactated Ringers) 1,000 mls @ 42 mls/hr IV CONT [facility] Last Admin: 01/10/18 17:35 Dose: 42 mls/hr Dextrose/Sodium Chloride (Dextrose 5%-0.45% Ns) 1,000 mls @ 75 mls/hr IV CONT [facility] Last Admin: 01/11/18 08:41 Dose: 75 mls/hr Promethazine HCl 25 mg/ Sodium (Chloride) 51 mls @ 204 mls/hr IV Q6HR PRN PRN Reason: Nausea Last Admin: 01/11/18 11:33 Dose: 204 mls/hr Metoclopramide HCl (Reglan) 10 mg IV NOW ONE Stop: 01/10/18 17:08 Last Admin: 01/10/18 17:28 Dose: 10 mg Morphine Sulfate (Morphine) 2 mg IV NOW ONE Stop: 01/11/18 08:14 Last Admin: 01/11/18 09:04 Dose: 2 mg Non-Formulary Medication (Esomeprazole Magnesium [Nexium]) 40 mg PO DAILY [facility] Last Admin: 01/11/18 08:35 Dose: Ondansetron HCl (Zofran Odt) 4 mg PO Q4HR PRN PRN Reason: Nausea Last Admin: 01/11/18 16:45 Dose: 4 mg Admin: 01/10/18 13:12 Dose: 4 mg Ondansetron HCl (Zofran) 4 mg IV NOW ONE Stop: 01/10/18 16:56 Last Admin: 01/10/18 19:55 Dose: 4 mg Admin: 01/10/18 16:58 Dose: 4 mg Ondansetron HCl (Zofran Odt) 4 mg PO Q6H PRN PRN Reason: Nausea Last Admin: 01/11/18 04:36 Dose: 4 mg Admin: 01/10/18 22:13 Dose: 4 mg Ondansetron HCl (Zofran Odt) 8 mg PO Q8HR PRN PRN Reason: Nausea Last Admin: 01/11/18 16:46 Dose: 8 mg Admin: 01/11/18 08:36 Dose: 8 mg Oxycodone HCl (Percolone) 5 mg PO Q30MIN PRN PRN Reason: Mild or moderate pain Sodium Chloride (Normal Saline 0.9% Flush) 10 ml IV BID FRANCHESCA Last Admin: 01/11/18 08:34 Dose: 10 ml Sodium Chloride (Normal Saline 0.9% Flush) 10 ml IV PRN PRN PRN Reason: Flush Last Admin: 01/11/18 04:28 Dose: 10 ml Admin: 01/11/18 00:15 Dose: 10 ml Vital Signs - 8 hr 01/10/18 14:36 01/10/18 16:01 01/10/18 17:29 Temperature 98.1 F Pulse Rate 71 70 90 Respiratory Rate 16 14 16 Blood Pressure 109/71 Blood Pressure [Left Arm] 89/44 L 103/72 Pulse Oximetry 99 99 95 01/10/18 19:30 01/10/18 19:35 01/10/18 19:40 Temperature 96.8 F L Pulse Rate 91 H 69 74 Respiratory Rate 14 14 11 L Blood Pressure 103/63 92/59 L 97/58 L Blood Pressure [Left Arm] Pulse Oximetry 100 100 100 01/10/18 19:45 01/10/18 19:50 01/10/18 20:00 Temperature Pulse Rate 78 91 H 75 Respiratory Rate 11 L 14 10 L Blood Pressure 106/67 114/73 112/62 Blood Pressure [Left Arm] Pulse Oximetry 100 100 100 01/10/18 20:10 01/10/18 20:39 01/10/18 21:13 Temperature 97.4 F L 97.6 F 97.8 F Pulse Rate 90 81 77 Respiratory Rate 16 18 19 Blood Pressure 101/63 118/69 105/62 Blood Pressure [Left Arm] Pulse Oximetry 100 100 MDM - Abdominal Pain <Adrianne Jim PA-C - Last Filed: 01/10/18 21:39> Lab Data Result diagrams: 01/10/18 13:35 01/10/18 13:35 Lab Results 01/10/18 01/10/18 01/10/18 Range/Units 13:35 13:35 14:00 WBC 7.2 (4.5-11.0) X10^3/uL RBC 3.99 L (4.0-5.2) X10^6/uL Hgb 12.2 (12.0-16.0) g/dL Hct 35.3 L (36-46) % MCV 88.5 (80-100) fL MCH 30.6 (26-34) PG MCHC 34.5 (30-36) % RDW 13.0 (11.6-14.8) % Plt Count 234 (150-400) X10^3/uL Neut % (Auto) 77.5 H (50-75) % Lymph % (Auto) 17.9 L (25-40) % [place] % (Auto) 3.9 (3-14) % Eos % (Auto) 0.4 L (2-4) % Baso % (Auto) 0.3 (0-2) % Neut # (Auto) 5600 (0494-2823) /uL Sodium 138 (137-145) mmol/L Potassium 3.5 (3.4-5.1) mmol/L Chloride 102 (98-107) mmol/L Carbon Dioxide 26 (22-32) mmol/L BUN 10 (7-17) mg/dL Creatinine 0.50 L (0.52-1.04) mg/dL Estimated GFR > 60.0 (>60) mL/min BUN/Creatinine Ratio 20.0 (6-22) Glucose 79 (70-100) mg/dL Lactate < 0.5 L (0.7-2.1) mmol/L Calcium 8.6 (8.4-10.2) mg/dL Total Bilirubin 0.4 (0.2-1.3) mg/dL AST 16 (14-36) IU/L ALT 19 (9-52) IU/L Alkaline Phosphatase 48 (38-126) U/L Total Protein 7.0 (6.3-8.2) g/dL Albumin 3.9 (3.5-5.0) g/dL Globulin 3.1 (1.7-4.1) g/dL Albumin/Globulin Ratio 1.3 (1.0-2.8) Lipase 80 (23-300) U/L Imaging Data US - abdomen: Radiologist's impression: View Report History Print [address] [address] Ultrasound Report Signed Patient: Sepideh Scott MR#: [id number] : 1985 Acct:[id number] Age/Sex: 32 / F Date of Service: 01/10/18 Loc: ED Accession Number: [id number] Procedure: US abdomen complete Ordering Provider: Adrianne Jim P.A-C PROCEDURE: US ABDOMEN COMPLETE INDICATIONS: PERIUMBILICAL HERNIA; PAIN TECHNIQUE: Real-time scanning was performed of the abdominal and retroperitoneal organs, with image documentation. COMPARISON: [facility], , ABDOMEN COMPLETE, 07/25/2017, 11:09. [facility], , US OB LIMITED, 01/10/2018, 14:25. FINDINGS: Liver: Liver is normal in size and homogeneous in echotexture. Gallbladder: No gallstones. No gallbladder wall thickening, pericholecystic fluid or sonographic Carreon's sign. Biliary ducts: Intrahepatic bile ducts are non-dilated. Extrahepatic bile duct caliber measures 4.1 mm. Normal is 6-7 mm or less in diameter, or 10 mm or less post-cholecystectomy. Pancreas: Visualized portions of the pancreas are sonographically normal. Spleen: Spleen is normal in size and homogeneous in echotexture. Kidneys: Kidneys are normal in size and echotexture. Right kidney measures 10.8 cm long; left kidney measures 10.0 cm long. No hydronephrosis or nephrolithiasis. No solid masses. Aorta: Visualized aorta is normal in caliber at less than 3 cm. Iliacs: Proximal common iliac arteries are normal in caliber at less than 2.5 cm. IVC: Intrahepatic inferior vena cava is patent. Miscellaneous: No free abdominal fluid. There is a periumbilical hernia measuring 1.7 x 1.7 x 2.0 cm, which may contain follow up. Thin intrauterine is noted (please see separate OB ultrasound report). IMPRESSION: 1. A 1.7 x 1.7 x 2.0 cm periumbilical hernia which may contain bowel loops. 2. Otherwise normal abdominal ultrasound exam. No acute intra-abdominal process identified. 3. An IUP is noted. Please see separate OB ultrasound report. Dictated by: Óscar Jones M.D. on 01/10/2018 at 15:23 Approved by: Óscar Jones M.D. on 01/10/2018 at 15:28 [place] [address] Ultrasound Report Signed Patient: Sepideh Scott MR#: [id number] : 1985 Acct:[id number] Age/Sex: 32 / F Date of Service: 01/10/18 Loc: ED Accession Number: [id number] Procedure: US OB >= 14 weeks Fetus Ordering Provider: Adrianne iJm P.A-C PROCEDURE: US OB LIMITED INDICATIONS: pain, mult misc OUTSIDE/PRIOR DATING DATA: Last menstrual period (LMP): 10/04/2017. LMP-based estimated date of delivery (MONSERRAT): 07/11/2018. First dating scan (date and location): 01/10/2018. Estimated date of delivery (MONSERRAT) from first dating scan: 07/04/2018. TECHNIQUE: Real-time scanning was performed of the fetus, with image documentation and biometric measurements. Endovaginal scanning: Not requested COMPARISON: None. FINDINGS: General: A single living intrauterine gestation is present. Presentation: A vertex. Placenta: Placental position is anterior, without previa. Amniotic fluid index: Not measured. heart rate: 152 beats per minute. Maternal cervical canal: Not visualized. biometrics: Biparietal diameter: 15 weeks 3 days Head circumference: 15 weeks 1 day Abdominal circumference: 14 weeks 6 days Femur length: 14 weeks 2 days Estimated gestational age from initial scan: not applicable. Composite gestational age from present scan: 15 weeks 0 day Estimated weight and percentile: n.a. Measurement variability for biometric dating: +/- 7 days from 14 weeks to 15 weeks 6 days gestation, +/- 10 days from 16 weeks to 21 weeks 6 days gestation, +/- 2 weeks from 22 weeks to 27 weeks 6 days gestation, +/- 3 weeks for 28 weeks gestation or later. weight reference: 4500 g or EFW >90/95% is considered macrosomia or large for gestational age. EFW <10% is small for gestational age. EFW 5% or less is considered intra-uterine growth restriction. Other: Not applicable. IMPRESSION: 1. A single living intrauterine gestation with the estimated gestational age of 15 weeks 0 day corresponding to ultrasound MONSERRAT 07/04/2018. 2. Fetus in vertex presentation. Cervix is not visualized. Dictated by: Óscar Jones M.D. on 01/10/2018 at 15:29 Approved by: Óscar Jones M.D. on 01/10/2018 at 15:34 <Ronal Mayfield DO - Last Filed: 01/12/18 07:18> Lab Data Lab Results 01/10/18 01/10/18 01/10/18 Range/Units 13:35 13:35 14:00 WBC 7.2 (4.5-11.0) X10^3/uL RBC 3.99 L (4.0-5.2) X10^6/uL Hgb 12.2 (12.0-16.0) g/dL Hct 35.3 L (36-46) % MCV 88.5 (80-100) fL MCH 30.6 (26-34) PG MCHC 34.5 (30-36) % RDW 13.0 (11.6-14.8) % Plt Count 234 (150-400) X10^3/uL Neut % (Auto) 77.5 H (50-75) % Lymph % (Auto) 17.9 L (25-40) % [place] % (Auto) 3.9 (3-14) % Eos % (Auto) 0.4 L (2-4) % Baso % (Auto) 0.3 (0-2) % Neut # (Auto) 5600 (7708-4263) /uL Sodium 138 (137-145) mmol/L Potassium 3.5 (3.4-5.1) mmol/L Chloride 102 (98-107) mmol/L Carbon Dioxide 26 (22-32) mmol/L BUN 10 (7-17) mg/dL Creatinine 0.50 L (0.52-1.04) mg/dL Estimated GFR > 60.0 (>60) mL/min BUN/Creatinine Ratio 20.0 (6-22) Glucose 79 (70-100) mg/dL Lactate < 0.5 L (0.7-2.1) mmol/L Calcium 8.6 (8.4-10.2) mg/dL Total Bilirubin 0.4 (0.2-1.3) mg/dL AST 16 (14-36) IU/L ALT 19 (9-52) IU/L Alkaline Phosphatase 48 (38-126) U/L Total Protein 7.0 (6.3-8.2) g/dL Albumin 3.9 (3.5-5.0) g/dL Globulin 3.1 (1.7-4.1) g/dL Albumin/Globulin Ratio 1.3 (1.0-2.8) Lipase 80 (23-300) U/L Discharge Plan Departure Patient Disposition: Admitted As Inpatient Discharge Date/Time: 01/10/18 17:21 Interventions: ED Discharge Assessment Last Done: 01/10/18 17:19 Instructions: Ventral Hernia, DI for Ventral Hernia Admit Date/Time: 01/10/18 17:09 Admit Provider: Raffy Hong Forms: Surgery Discharge <Ronal Mayfield DO - Last Filed: 01/12/18 07:18> Cosign ED Attending Abdirizakature Attestation: I was available for consultation during this patient's emergency department encounter
[2018-01-10] MEDS: SODIUM CHLORIDE 0.9% 1,000 ML 1000 ML IV ×2 (13:45→15:00)
[2018-01-10] MEDS: diphenhydrAMINE 50 MG/ML VIAL 25 MG IV ×4 (13:45→22:13)
[2018-01-10 13:56] LABS: Add Manual Diff / Slide Review NO; Basophils Percent Auto 0.3 % (0-2); Eosinophils Percent Auto 0.4 % (2-4); Hematocrit 35.3 % (36-46); Hemoglobin 12.2 g/dL (12.0-16.0); Lymphocytes Percent Auto 17.9 % (25-40); Mean Corpuscular HGB Conc 34.5 % (30-36); Mean Corpuscular Hemoglobin 30.6 PG (26-34); Mean Corpuscular Volume 88.5 fL (80-100); Monocytes Percent Auto 3.9 % (3-14); Neutrophils Absolute Auto 5600 /uL (3000-5900); Neutrophils Percent Auto 77.5 % (50-75); Platelet Count 234 X10^3/uL (150-400); Red Blood Cell Count 3.99 X10^6/uL (4.0-5.2); White Blood Cell Count 7.2 X10^3/uL (4.5-11.0)
[2018-01-10 14:09] LABS: Alanine Aminotransferase 19 IU/L (9-52); Albumin 3.9 g/dL (3.5-5.0); Albumin Globulin Ratio 1.3 (1.0-2.8); Alkaline Phosphatase 48 U/L (38-126); Aspartate Aminotransferase 16 IU/L (14-36); Bilirubin Total 0.4 mg/dL (0.2-1.3); Blood Urea Nitrogen 10 mg/dL (7-17); Calcium 8.6 mg/dL (8.4-10.2); Carbon Dioxide 26 mmol/L (22-32); Chloride 102 mmol/L (98-107); Estimated Glomerular Filt Rate > 60.0 mL/min (>60); Globulin 3.1 g/dL (1.7-4.1); Glucose 79 mg/dL (70-100); HEMOLYSIS < 15 (0-50); Lipase 80 U/L (23-300); Potassium 3.5 mmol/L (3.4-5.1); Sodium 138 mmol/L (137-145)
[2018-01-10 14:30] LABS: Lactate (Lactic Acid) < 0.5 mmol/L (0.7-2.1)
[2018-01-10] MEDS: HYDROCODONE/ACET 5/325 TABLET 1 TAB PO ×2 (15:41→20:57)
[2018-01-10] MEDS: ONDANSETRON 4 MG/2 ML INJ IV ×2 (16:58→19:55)
[2018-01-10] MEDS: METOCLOPRAMIDE 10 MG/2 ML INJ IV (17:28)
[2018-01-10] MEDS: LACTATED RINGERS 1,000 ML 42 ML IV (17:35)
--- NOTE | 2018-01-10 18:03 | SUR.OPER ---
Lithotomy on padded OR bed, head on pillow, arms secured on padded arm boards at <90 degrees abduction. Legs secured in padded yellow fins stirrups.
--- NOTE | 2018-01-10 18:36 | HP_ITS ---
DATE OF SERVICE: 01/10/2018 DIAGNOSIS: Incarcerated umbilical hernia. HISTORY OF PRESENT ILLNESS: This is a 32-year-old white female patient who is 14 weeks , has incarcerated umbilical hernia. She has had this hernia for some months. She is typically able to reduce it herself. However, per the last 3 days, she has had excruciating pain. She's had some vomiting throughout her and now she has been vomiting. Ultrasound was done in the emergency room which confirms the presence of an incarcerated umbilical hernia. The possibility of bowel being incarcerated is not excluded. It's an equivocal report. PAST MEDICAL HISTORY: She's had a in the past. She's had an appendectomy. She's had shoulder repair, knee surgery, arthroscopy. She denies diabetes, heart disease, or hypertension. She states she has a gravid uterus of 14 weeks at this time. ALLERGIES: ALLERGIC TO EXCEDRIN, AMOXICILLIN, AND PYRIDIUM. SOCIAL HISTORY: She does have 1 child. She's . Non-smoker, is not drinking during her . REVIEW OF SYSTEMS: Denies exertional chest pain or unusual shortness of breath. GI is as mentioned in HPI. is also mentioned in HPI. Neurologic: No history of seizures, strokes, or TIAs. PHYSICAL EXAMINATION GENERAL: She's alert and oriented. VITAL SIGNS: Blood pressure 120/80, heart rate in the 80s. HEENT: Ears, nose, and throat normal. NECK: No adenopathy. CHEST: Lungs are clear with no rales or wheezes. HEART: Regular rhythm. No murmur ABDOMEN: Soft in the parietal peritoneum laterally. However, she has exquisite umbilical and periumbilical tenderness. There is no erythema. She is so tender I really do not palpate a mass and I'm not able to reduce the mass but she is exquisitely tender in the umbilicus and periumbilical area. Lower abdominal exam reveals a gravid uterus. It's not quite up to the level of the umbilicus yet. The remaining physical is unremarkable. DIAGNOSES: 1. Gravid uterus, 14 weeks. 2. Incarcerated umbilical hernia. PLAN: Open repair under spinal anesthesia. I've explained to the patient and her , there is risk of course to the fetus with surgery and with anesthesia. However, there is certainly risk of not operating on somebody with incarcerated hernia with possible bowel involvement. She's had pain for 3 days and I believe that we have no choice but to repair this as safely as possible with minimal anesthesia and so we will do a spinal anesthetic. SoniaJeanieSepideh - Agustin/ doc#: [id number]/job#: [id number] dd: 01/10/2018 17:00:00 dt: 01/10/2018 18:20:00 DICTATING /COPIES TO: Raffy Hong MD COPIES MNE: KOKO
--- NOTE | 2018-01-10 19:15 | SUR.OPER ---
Supine on padded OR bed, head on pillow, arms secured on padded arm boards at <90 degrees abduction, legs uncrossed, safety belt at thigh, tape over blanket over lower legs.
[2018-01-10] MEDS: BUPIVACAINE 0.5% (PF) 30 ML VIAL INJ (19:20)
[2018-01-10] MEDS: fentaNYL 100 MCG/2 ML INJ 25 MCG IV ×2 (19:43→20:03)
[2018-01-10] MEDS: fentaNYL 100 MCG/2 ML INJ 50 MCG IV ×2 (19:57→20:11)
--- NOTE | 2018-01-10 20:03 | SUR.PHASEI ---
heart tones checked by L&D RN at 1953. heart rate was 133.
[2018-01-11] MEDS: HYDROCODONE/ACET 5/325 TABLET 1 TAB PO ×2 (00:01→16:49)
[2018-01-11] MEDS: SODIUM CHLORIDE 0.9% FLUSH 10 ML IV ×3 (00:15→08:34)
[2018-01-11 02:38] VITALS: O2SAT 99
[2018-01-11 03:26] VITALS: BP 111/70; PULSE 74; RESP 18; TEMP 36.5; O2SAT 96
[2018-01-11] MEDS: diphenhydrAMINE 50 MG/ML VIAL 25 MG IV ×2 (04:28→08:35)
[2018-01-11] MEDS: ONDANSETRON 4 MG ODT PO ×2 (04:36→16:45)
[2018-01-11] MEDS: HYDROCODONE/ACET 5/325 TABLET 2 TAB PO ×3 (05:58→16:51)
--- NOTE | 2018-01-11 06:12 | OP_ITS ---
DATE OF SERVICE: 01/10/2018 PREOP DIAGNOSIS: Incarcerated umbilical hernia. POSTOP DIAGNOSIS: Incarcerated umbilical hernia. PROCEDURE: Repair of incarcerated umbilical hernia. SURGEON: Raffy Hong MD DESCRIPTION OF PROCEDURE: The patient was given a spinal anesthetic, prepped and draped in sterile fashion with exposure of the mid abdomen, and properly identified during a surgical pause. A curvilinear incision was made in the infraumbilical position. The umbilical skin was elevated. A 1.5 cm umbilical fascial defect was encountered with a loop of healthy appearing small bowel in the hernia sac. The bowel was carefully inspected. It was reduced into the peritoneal cavity without injury and appeared to be quite healthy. I repaired the fascial defect in 2 layers with 0 Prolene, horizontal suturing. This made a very firm, tension-free repair in this very tiny defect of 1.5 cm. The wound was irrigated with sterile saline. The subcu was closed with fine Vicryl. The skin was stapled and a sterile dressing was applied. The procedure was very well tolerated under a spinal anesthetic, and I did administer 0.5% Marcaine for additional postoperative comfort measures. Sepideh Scott - /shena/gabino doc#: [id number]/job#: [id number] dd: 01/10/2018 20:06:00 dt: 01/11/2018 06:04:00 DICTATING MD/COPIES TO: Raffy Hong MD COPIES MNE: KOKO
[2018-01-11 07:30] VITALS: BP 101/67; PULSE 79; RESP 18; TEMP 36.6; O2SAT 100
[2018-01-11] MEDS: ONDANSETRON 4 MG ODT 8 MG PO ×2 (08:36→16:46)
[2018-01-11] MEDS: DEXTROSE 5%-0.45% NS 1,000 ML 75 ML IV (08:41)
[2018-01-11] MEDS: MORPHINE 2 MG/ML INJ IV (09:04)
[2018-01-11 10:32] VITALS: O2SAT 99
--- NOTE | 2018-01-11 11:08 | CM.DANOTE ---
DCP/Assessment: Reviewed chart. Patient is a 32yr old female admitted [facility] under [facility] status with hernia. PCP is Dr. Danielson. Primary payor is 1)[employer]. Patient currently 14wks . Met with patient explained CM/SW role. Patient alert and oriented, resting in bed at time of visit. Patient reports that she plans to go home when medically stable. Patient is completely I in all ADL's. Patient resides with spouse and child [place] [facility] Patient does not anticipate any d/c planning needs. CM team name/number left on white board. P: Home when stable. CORETTA Lance Discharge Planning/Care Management CM Discharge Assessment Start: 01/11/18 11:04 Freq: Status: Active Protocol: Document 01/11/18 11:05 KJS (Rec: 01/11/18 11:07 KJS [id number]) Discharge Planning Assessment Assigned Secondary School Teacher CORETTA/aMrina History Provided By Patient Has Patient been admitted in last 30 No days? Prior Living Arrangements House Household Members spouse children Type of transporation used prior to Drives own vehicle admit Independent with ADL's Yes Is patient alert and oriented? Yes Caregiver for Another Yes: Has young child Discharge Plan Home Transportation Arrangement Spouse to provide transport home. Review Status Complete Next Review Type Discharge Review
[2018-01-11] MEDS: BISACODYL 10 MG SUPP PR (11:09)
--- NOTE | 2018-01-11 11:30 | PN_ITS ---
DATE OF SERVICE: 01/11/2018 The patient is about 12 hours post repair of an incarcerated umbilical hernia at 14 weeks . Subjectively, she has considerable nausea and vomiting, which she has had hyperemesis gravidarum. She has had that this entire . She has had some vomiting this morning. However, she feels much better with minimal abdominal discomfort and none of the preoperative pain, so she is happy and feels that her operation was successful, as do I. She has minimal incisional tenderness, none of the preoperative abdominal tenderness. My plan is to try to get her hyperemesis under control and possibly be able to discharge her later on today. She has contreras in her skin. She will need to have those removed next week. Sonia Sepideh - Agustin/gabino doc#: [id number]/job#: [id number] dd: 01/11/2018 10:20:00 dt: 01/11/2018 11:23:00 DICTATING /COPIES TO: Raffy Hong MD COPIES MNE: KOKO
[2018-01-11] MEDS: PROMETHAZINE 25 MG in SODIUM CHLORIDE 0.9% 50 ML 204 ML IV (11:33)
[2018-01-11 12:00] VITALS: BP 108/66; PULSE 91; RESP 16; TEMP 36.6; O2SAT 100
[2018-01-11 15:24] VITALS: BP 102/59; PULSE 99; RESP 16; TEMP 37.1; O2SAT 99
== END 2018-01-11 17:29 | disposition home or self-care (01) ==
LOC: ED 13:00 → AC 17:10
PROVIDERS: Admitting Provider Surgery; Emergency Provider Internal Medicine; Family Provider Obstetrics & Gynecology; PCP Family Medicine; Visit Provider Surgery
PROC: (CPT 49587; principal; 2018-01-10 17:00)
DX: K42.0 Umbilical hernia with obstruction, without gangrene (principal); Z3A.14 14 weeks gestation of pregnancy
CPT/HCPCS: 49587; 36415; 36591; 76700; 76811; 80053; 81003; 81025; 83605; 83690; 85025; 94762; 96361; 96374; 96375; 96376; 99283; 99285; G0378; J1200; J2270; J2405; J2550; J2765; J3010

== ENCOUNTER 2018-02-06 09:51 | Emergency (ER) | payer OTHER, SELFPAY ==
[2018-01-10 19:23] VITALS: BMI 26.2
[2018-02-06 09:59] VITALS: BP 108/65; PULSE 82; RESP 14; TEMP 36.9; O2SAT 100; BMI 25.4
[2018-02-06 10:35] LABS: Bacteria Urine None Seen; RBC Urine None Seen (0-5/HPF); WBC Urine None Seen (0-5/HPF)
[2018-02-06 10:54] LABS: Appearance Urine UA CLOUDY; Bilirubin Urine UA NEGATIVE (NEGATIVE); Color Urine UA YELLOW; Glucose Urine UA NEGATIVE (Normal); Ketones Urine UA NEGATIVE (NEGATIVE); Leukocyte Esterase Urine UA NEGATIVE (NEGATIVE); Nitrite Urine UA Negative (Negative); Occult Blood Urine UA NEGATIVE (Negative); Protein Urine UA NEGATIVE (Negative); Specific Gravity Urine UA 1.015 (1.000-1.035); Urobilinogen Urine UA 0.2 E.U./dL (0.2)
[2018-02-06 10:55] LABS: Culture Indicated Urine Cult Not Indicated; Urine Comments Microscopic Normal
[2018-02-06 11:06] LABS: Add Manual Diff / Slide Review NO; Basophils Percent Auto 0.3 % (0-2); Eosinophils Percent Auto 0.5 % (2-4); Hematocrit 36.6 % (36-46); Hemoglobin 12.5 g/dL (12.0-16.0); Lymphocytes Percent Auto 18.7 % (25-40); Mean Corpuscular HGB Conc 34.2 % (30-36); Mean Corpuscular Hemoglobin 30.3 PG (26-34); Mean Corpuscular Volume 88.6 fL (80-100); Neutrophils Absolute Auto 5900 /uL (3000-5900); Neutrophils Percent Auto 75.5 % (50-75); Platelet Count 231 X10^3/uL (150-400); Red Blood Cell Count 4.13 X10^6/uL (4.0-5.2); Red Cell Distribution Width 13.5 % (11.6-14.8); White Blood Cell Count 7.9 X10^3/uL (4.5-11.0)
[2018-02-06 11:10] LABS: Urine Amphetamines Negative (Negative); Urine Barbiturates Negative (Negative); Urine Benzodiazepines Negative (Negative); Urine Cocaine Negative (Negative); Urine MDMA Negative (Negative); Urine Methadone Negative (Negative); Urine Methamphetamines Negative (Negative); Urine Morphine/Opi cutoff 2000 Negative (Negative); Urine Oxycodone Negative (Negative); Urine Phencyclidine Negative (Negative); Urine Tetrahydrocannabinol Positive (Negative); Urine Tricyclic Antidepressant Positive (Negative)
[2018-02-06 11:22] LABS: Alanine Aminotransferase 21 IU/L (9-52); Albumin 3.8 g/dL (3.5-5.0); Albumin Globulin Ratio 1.3 (1.0-2.8); Alkaline Phosphatase 42 U/L (38-126); Aspartate Aminotransferase 16 IU/L (14-36); Bilirubin Total 0.4 mg/dL (0.2-1.3); Blood Urea Nitrogen 9 mg/dL (7-17); Calcium 9.1 mg/dL (8.4-10.2); Carbon Dioxide 28 mmol/L (22-32); Chloride 101 mmol/L (98-107); Estimated Glomerular Filt Rate > 60.0 mL/min (>60); Glucose 82 mg/dL (70-100); HEMOLYSIS < 15 (0-50); Lactate (Lactic Acid) 0.6 mmol/L (0.7-2.1); Lipase 67 U/L (23-300); Potassium 4.3 mmol/L (3.4-5.1); Sodium 136 mmol/L (137-145); Total Protein 6.8 g/dL (6.3-8.2)
--- NOTE | 2018-02-06 11:29 | DI.US.S_ITS ---
PROCEDURE: US OB LIMITED INDICATIONS: CRAMPING OUTSIDE/PRIOR DATING DATA: Last menstrual period (LMP): 10/04/17. LMP-based estimated date of delivery (MONSERRAT): 07/11/18. First dating scan (date and location): 01/10/18. Estimated date of delivery (MONSERRAT) from first dating scan: 07/04/18. TECHNIQUE: Real-time scanning was performed of the fetus, with image documentation and biometric measurements. COMPARISON: [facility], US ABDOMEN COMPLETE, 01/10/2018, 14:08. [facility], US OB LIMITED, 01/10/2018, 14:25. FINDINGS: General: A single living intrauterine gestation is present. Presentation: Vertex. Placenta: Placental position is anterior, with marginal previa. Lower placental edge 2 cm or less from internal cervical os qualifies as low lying placenta. Amniotic fluid index: 10.2 cm, normal range is 5-24 cm. heart rate: 146 beats per minute. Maternal cervical canal: 4.1 cm long. Normal lower limit is 2.5 cm. biometrics: Estimated gestational age from initial scan: 18 weeks 6 days. Measurement variability for biometric dating: +/- 7 days from 14 weeks to 15 weeks 6 days gestation, +/- 10 days from 16 weeks to 21 weeks 6 days gestation, +/- 2 weeks from 22 weeks to 27 weeks 6 days gestation, +/- 3 weeks for 28 weeks gestation or later. weight reference: 4500 g or EFW >90/95% is considered macrosomia or large for gestational age. EFW <10% is small for gestational age. EFW 5% or less is considered intra-uterine growth restriction. Other: Mild right maternal hydronephrosis. IMPRESSION: 1. Single live intrauterine with ultrasound MONSERRAT of 07/04/18. No acute abnormality. Dictated by: Olinda Conde M.D. on 02/06/2018 at 13:09 Approved by: Olinda Conde M.D. on 02/06/2018 at 13:11
[2018-02-06 11:50] LABS: Procalcitonin < 0.05 ng/mL (<0.5)
--- NOTE | 2018-02-06 12:01 | PC.NURSE ---
Pelvic exam done with
--- NOTE | 2018-02-06 15:01 | ED_ITS ---
HPI - General Chief complaint: Urogenital-Female Stated complaint: possible uti, 18 weeks History of Present Illness HPI Narrative: HPI 32-year-old female presents 18 weeks gestation with 2 days of right flank pain, and possibly urinary frequency. Denies vaginal discharge or discomfort. Recent history notable for an umbilical hernia repair on 01/11/18 with an unremarkable postoperative course. Patient with prior appendectomy and . No fevers. Repeat HPI notable for patient clarifying that she has had 5 miscarriages, no clear evaluation as to the reasons for these miscarriages. Her one term required apparent tocolytic medications following contractions in her first trimester. Patient now developing midline crampy abdominal pain. M/S/F/SocHx notable for: please see HPI; remainder reviewed with patient and in chart. ROS: Negative constitutional, eye, cardiovascular, pulmonary, GI, , MSK, skin , neurologic, psychiatric, endocrine unless noted in the HPI. Exam Gen: Pleasant, non-toxic appearing, resting comfortably. HEENT: NC, AT, PEERL, EOMI. Resp: Clear to auscultation bilaterally, normal work of breathing, no accessory muscle usage. Card: Regular rate and rhythm with no murmurs, rubs, or gallops, extremities warm and well perfused. GI: Non-tender to palpation throughout all quadrants, no focal tenderness at McBurney's point, negative Carreon's sign, non-distended, no rebound or guarding. : mild right sided CVA tenderness to percussion, no left sided CVA tenderness to percussion. No suprapubic tenderness to palpation. Gravid abdomen. Chaperoned pelvic exam with a visually closed cervical office and no discharge. MSK: No visible deformities, strength and tone WNL. Skin: Normal color with no visible lesions. Neuro: AO x 3, no facial asymmetry, vision and hearing WNL. Psych: Mood and affect appropriate. Labs / Imaging (pertinent): WBC 7.9, HB 12.5, sodium 136, potassium 4.3, lactic acid 0.6, Procalcitonin < 0.05 UA - negative leukocyte esterase, negative nitrate, no WBCs, no bacteria. UDS with marijuana and TCAs Pelvic ultrasound: single live intrauterine with ultrasound MONSERRAT of . No acute abnormality. MDM Previous chart, nursing note, and vitals reviewed. A: 32-year-old at 18 weeks gestation presents for evaluation of right flank pain, urinary frequency, and cramping midline abdominal pain. DDx: & Evaluation: patient without clear evidence of UTI, no findings suggestive of ureterolithiasis, pelvic ultrasound without evidence of abnormality, pelvic exam with a closed office. Suspect cramping given the nature the symptoms are consistent with prior pregnancies, this may represent an early threatened AB, the TELEVISION MAINTENANCE MAN on-call was contacted, results reviewed, no viable therapies exists for contractions at this stage of labor, recommended discharge with instructions to remain well-hydrated and to follow up with her TELEVISION MAINTENANCE MAN on Thursday. Given a benign abdominal exam, unremarkable history, normal lab strongly doubt acute infectious intra-abdominal process. Impression: cramping. (please reference below for remainder of encounter information) Related Data Home Medications Medication Instructions Recorded Confirmed esomeprazole magnesium [Nexium] 40 mg PO QDAY #0 03/29/1618 ondansetron [Zofran ODT] 4 mg SUBLINGUAL Q6HP PRN 02/06/18 Allergies Allergy/AdvReac Type Severity Reaction Status Date / Time amoxicillin [AMOXICILLIN] Allergy Severe nausea and Verified 02/06/18 09:59 vomiting aspirin Allergy Severe Eye Verified 02/06/18 09:59 [From EXCEDRIN BACK AND BODY] swelling calcium carbonate Allergy Severe eye Verified 02/06/18 09:59 [From EXCEDRIN BACK AND BODY] swelling codeine [CODEINE] Allergy Severe nausea and Verified 02/06/18 09:59 vomiting phenazopyridine Allergy Severe lip Verified 02/06/18 09:59 [From PYRIDIUM] swelling tramadol [TRAMADOL] Allergy Severe nausea and Verified 02/06/18 09:59 vomiting Exam Initial Vital Signs Initial Vital Signs: Vital Signs Temperature 98.4 F 02/06/18 09:59 Pulse Rate 82 02/06/18 09:59 Respiratory Rate 14 02/06/18 09:59 Blood Pressure 108/65 02/06/18 09:59 Pulse Oximetry 100 02/06/18 09:59 Course Orders Ordered: ED Orders 02/06/18 10:34 Urinalysis and Microscopic Stat 02/06/18 10:53 Urine Culture Stat Urine Drug Screen, Rapid Stat 02/06/18 10:55 Complete Blood Count AUTO DIFF Stat Comprehensive Metabolic Panel Stat Lactate (Lactic Acid) Stat Lipase Stat Procalcitonin Stat 02/06/18 11:29 US OB limited Stat Vital Signs - 8 hr 02/06/18 09:59 Temperature 98.4 F Pulse Rate 82 Respiratory Rate 14 Blood Pressure 108/65 Pulse Oximetry 100 MDM - OB/Uterine Contractions Lab Data Result diagrams: 02/06/18 10:55 02/06/18 10:55 Lab Results 02/06/18 02/06/18 02/06/18 Range/Units 10:34 10:53 10:55 WBC 7.9 (4.5-11.0) X10^3/uL RBC 4.13 (4.0-5.2) X10^6/uL Hgb 12.5 (12.0-16.0) g/dL Hct 36.6 (36-46) % MCV 88.6 (80-100) fL MCH 30.3 (26-34) PG MCHC 34.2 (30-36) % RDW 13.5 (11.6-14.8) % Plt Count 231 (150-400) X10^3/uL Neut % (Auto) 75.5 H (50-75) % Lymph % (Auto) 18.7 L (25-40) % [place] % (Auto) 5.0 (3-14) % Eos % (Auto) 0.5 L (2-4) % Baso % (Auto) 0.3 (0-2) % Neut # (Auto) 5900 (6749-7419) /uL Sodium (137-145) mmol/L Potassium (3.4-5.1) mmol/L Chloride (98-107) mmol/L Carbon Dioxide (22-32) mmol/L BUN (7-17) mg/dL Creatinine (0.52-1.04) mg/dL Estimated GFR (>60) mL/min BUN/Creatinine Ratio (6-22) Glucose (70-100) mg/dL Lactate (0.7-2.1) mmol/L Calcium (8.4-10.2) mg/dL Total Bilirubin (0.2-1.3) mg/dL AST (14-36) IU/L ALT (9-52) IU/L Alkaline Phosphatase (38-126) U/L Total Protein (6.3-8.2) g/dL Albumin (3.5-5.0) g/dL Globulin (1.7-4.1) g/dL Albumin/Globulin Ratio (1.0-2.8) Lipase (23-300) U/L Procalcitonin (<0.5) ng/mL Urine Color Yellow Urine Appearance Cloudy Urine pH 7.0 (4.5-8.0) Ur Specific [place] 1.015 (1.000-1.035) Urine Protein Negative (Negative) Urine Glucose (UA) Negative (Normal) g/dL Urine Ketones Negative (NEGATIVE) Urine Occult Blood Negative (Negative) Urine Nitrate Negative (Negative) Urine Bilirubin Negative (NEGATIVE) Urine Urobilinogen 0.2 (0.2) E.U./dL Ur Leukocyte Esterase Negative (NEGATIVE) Urine RBC None seen (0-5/HPF) Urine WBC None seen (0-5/HPF) Urine Bacteria None seen (None) Ur Culture Indicated? Cult not indicated Micro UA Comment Microscopic normal Urine Opiates Screen Negative (Negative) Ur Oxycodone Screen Negative (Negative) Urine Methadone Screen Negative (Negative) Ur Barbiturates Screen Negative (Negative) U Tricyclic Antidepress Positive H (Negative) Ur Phencyclidine Scrn Negative (Negative) Ur Amphetamines Screen Negative (Negative) U Methamphetamines Scrn Negative (Negative) Ur MDMA Scrn (Ecstasy) Negative (Negative) U Benzodiazepines Scrn Negative (Negative) Urine Cocaine Screen Negative (Negative) U Marijuana (THC) Screen Positive H (Negative) 02/06/18 02/06/18 02/06/18 Range/Units 10:55 10:55 10:55 WBC (4.5-11.0) X10^3/uL RBC (4.0-5.2) X10^6/uL Hgb (12.0-16.0) g/dL Hct (36-46) % MCV (80-100) fL MCH (26-34) PG MCHC (30-36) % RDW (11.6-14.8) % Plt Count (150-400) X10^3/uL Neut % (Auto) (50-75) % Lymph % (Auto) (25-40) % [place] % (Auto) (3-14) % Eos % (Auto) (2-4) % Baso % (Auto) (0-2) % Neut # (Auto) (2292-0122) /uL Sodium 136 L (137-145) mmol/L Potassium 4.3 (3.4-5.1) mmol/L Chloride 101 (98-107) mmol/L Carbon Dioxide 28 (22-32) mmol/L BUN 9 (7-17) mg/dL Creatinine 0.50 L (0.52-1.04) mg/dL Estimated GFR > 60.0 (>60) mL/min BUN/Creatinine Ratio 18.0 (6-22) Glucose 82 (70-100) mg/dL Lactate 0.6 L (0.7-2.1) mmol/L Calcium 9.1 (8.4-10.2) mg/dL Total Bilirubin 0.4 (0.2-1.3) mg/dL AST 16 (14-36) IU/L ALT 21 (9-52) IU/L Alkaline Phosphatase 42 (38-126) U/L Total Protein 6.8 (6.3-8.2) g/dL Albumin 3.8 (3.5-5.0) g/dL Globulin 3.0 (1.7-4.1) g/dL Albumin/Globulin Ratio 1.3 (1.0-2.8) Lipase 67 (23-300) U/L Procalcitonin < 0.05 (<0.5) ng/mL Urine Color Urine Appearance Urine pH (4.5-8.0) Ur Specific [place] (1.000-1.035) Urine Protein (Negative) Urine Glucose (UA) (Normal) g/dL Urine Ketones (NEGATIVE) Urine Occult Blood (Negative) Urine Nitrate (Negative) Urine Bilirubin (NEGATIVE) Urine Urobilinogen (0.2) E.U./dL Ur Leukocyte Esterase (NEGATIVE) Urine RBC (0-5/HPF) Urine WBC (0-5/HPF) Urine Bacteria (None) Ur Culture Indicated? Micro UA Comment Urine Opiates Screen (Negative) Ur Oxycodone Screen (Negative) Urine Methadone Screen (Negative) Ur Barbiturates Screen (Negative) U Tricyclic Antidepress (Negative) Ur Phencyclidine Scrn (Negative) Ur Amphetamines Screen (Negative) U Methamphetamines Scrn (Negative) Ur MDMA Scrn (Ecstasy) (Negative) U Benzodiazepines Scrn (Negative) Urine Cocaine Screen (Negative) U Marijuana (THC) Screen (Negative) Discharge Plan Departure Prescriptions: No Action esomeprazole magnesium [Nexium] 40 MG capsule,delayed release(DR/EC) 40 mg PO QDAY Qty: 0 RF: 0 ondansetron [Zofran ODT] 4 MG tablet,disintegrating 4 mg Sublingual Q6HP PRN (Reason: Nausea) RF: 0
[2018-02-06 15:09] VITALS: BP 109/61; PULSE 79; RESP 20; O2SAT 100
[2018-02-06 15:10] VITALS: BP 109/61; PULSE 85; RESP 16; O2SAT 100
== END 2018-02-06 15:10 | disposition home or self-care (01) ==
PROVIDERS: Emergency Provider Emergency Medicine; Family Provider Family Medicine; PCP Family Medicine
DX: O26.891 Other specified pregnancy related conditions, first trimester (principal); R10.9 Unspecified abdominal pain; Z3A.18 18 weeks gestation of pregnancy
CPT/HCPCS: 36415; 76815; 80053; 80305; 81001; 81003; 83605; 83690; 84145; 85025; 87086; 99283; 99284

== ENCOUNTER → 2018-02-24 10:30 | Outpatient (CLI) | payer OTHER, MEDICAID, SELFPAY ==
[2018-01-10 19:23] VITALS: BMI 26.2
--- NOTE | 2018-02-24 10:32 | DI.US.S_ITS ---
PROCEDURE: US OB >= 14 WEEKS FETUS INDICATIONS: Anatomy Scan OUTSIDE/PRIOR DATING DATA: Last menstrual period (LMP): 10/04/2017. LMP-based estimated date of delivery (MONSERRAT): 07/11/2018. First dating scan (date and location): 01/10/2018. Estimated date of delivery (MONSERRAT) from first dating scan: 07/04/2018. TECHNIQUE: Real-time scanning was performed of the fetus, with image documentation and biometric measurements. Endovaginal scanning: Not requested COMPARISON: [facility], OB LIMITED, 02/06/2018, 12:01. FINDINGS: General: A single living intrauterine gestation is present. Presentation: Breech. Placenta: Placental position is anterior, without previa. Amniotic fluid index: 12.2 cm, normal range is 5-24 cm. heart rate: 155 beats per minute. Maternal cervical canal: 4.8 cm long. Normal lower limit is 2.5 cm. biometrics: Biparietal diameter: 20 weeks 4 days Head circumference: 21 weeks Abdominal circumference: 21 weeks one day Femur length: 21 weeks Estimated gestational age from initial scan: 21 weeks 3 days Composite gestational age from present scan: 21 weeks, normal growth Estimated weight and percentile: 398 g at the 27th percentile Measurement variability for biometric dating: +/- 7 days from 14 weeks to 15 weeks 6 days gestation, +/- 10 days from 16 weeks to 21 weeks 6 days gestation, +/- 2 weeks from 22 weeks to 27 weeks 6 days gestation, +/- 3 weeks for 28 weeks gestation or later. weight reference: 4500 g or EFW >90/95% is considered macrosomia or large for gestational age. EFW <10% is small for gestational age. EFW 5% or less is considered intra-uterine growth restriction. Anatomic survey: Neuro: Ventricles are non-dilated at less than 10 mm. Cisterna magna is normal at 3-11 mm. Cerebellum is normal in size and morphology. Nuchal skin fold: Normal at less than 6 mm between 14-21 weeks gestational age. Face: Nose and lips, facial profile are normal. Spine: No evidence for spina bifida. Heart: 4-chambered heart is present, with normal ventricular outflow tracts. Diaphragm: Diaphragm is intact. Stomach: Left-sided stomach is present. Kidneys: No hydronephrosis. Normal is less than 5 mm in 2nd trimester, less than 7 mm in 3rd trimester. Cord: 3-vessel cord has orthotopic insertion. Bladder: Normal in size. Extremities: All 4 extremities identified. IMPRESSION: 1. Single, live intrauterine gestation in breech position 2. Mild maternal right hydronephrosis persisting post voiding. 3. Inferior tip of the placenta is 3.4 cm from the internal os. Dictated by: Fili De La Garza M.D. on 02/24/2018 at 12:35 Approved by: Fili De La Garza M.D. on 02/24/2018 at 12:40
== END ==
PROVIDERS: Family Provider Family Medicine; PCP Family Medicine; Visit Provider Family Medicine
DX: Z34.92 Encounter for supervision of normal pregnancy, unspecified, second trimester (principal); Z3A.21 21 weeks gestation of pregnancy
CPT/HCPCS: 76811

== ENCOUNTER 2018-03-04 12:34 | Observation (INO) | payer OTHER, MEDICAID, SELFPAY ==
[2018-01-10 19:23] VITALS: BMI 26.2
[2018-03-04 13:42] LABS: Bacteria Urine None Seen; RBC Urine None Seen (0-5/HPF); WBC Urine None Seen (0-5/HPF)
[2018-03-04 13:50] LABS: Appearance Urine UA CLEAR; Bilirubin Urine UA NEGATIVE (NEGATIVE); Color Urine UA YELLOW; Glucose Urine UA NEGATIVE (Normal); Ketones Urine UA 1+ (NEGATIVE); Leukocyte Esterase Urine UA NEGATIVE (NEGATIVE); Nitrite Urine UA Negative (Negative); Occult Blood Urine UA NEGATIVE (Negative); Protein Urine UA NEGATIVE (Negative); Urobilinogen Urine UA 0.2 E.U./dL (0.2)
[2018-03-04 13:52] LABS: Add Manual Diff / Slide Review NO; Basophils Percent Auto 0.6 % (0-2); Eosinophils Percent Auto 0.3 % (2-4); Hematocrit 36.4 % (36-46); Hemoglobin 12.4 g/dL (12.0-16.0); Lymphocytes Percent Auto 16.2 % (25-40); Mean Corpuscular HGB Conc 34.1 % (30-36); Mean Corpuscular Hemoglobin 30.4 PG (26-34); Mean Corpuscular Volume 89.3 fL (80-100); Monocytes Percent Auto 4.6 % (3-14); Neutrophils Absolute Auto 6800 /uL (3000-5900); Neutrophils Percent Auto 78.3 % (50-75); Platelet Count 254 X10^3/uL (150-400); Red Blood Cell Count 4.08 X10^6/uL (4.0-5.2); Red Cell Distribution Width 13.6 % (11.6-14.8); White Blood Cell Count 8.7 X10^3/uL (4.5-11.0)
[2018-03-04 14:03] LABS: Culture Indicated Urine Cult Not Indicated
[2018-03-04] MEDS: ONDANSETRON 4 MG ODT 8 MG PO (14:32)
--- NOTE | 2018-03-04 14:32 | P.TNLD_ITS ---
Visit Information Visit Information Date of evaluation: 03/04/18 Primary OB Provider: Levi Ortega On-call OB Provider: Estelita Travis Comments/Additional reasons for admission: Rule out pyelonephritis Vital Signs Vital Signs: Blood pressure 100/55, pulse is 65, temperature 97.5? PFSH Medical History History of multiple miscarriages (Acute) Endometriosis (Chronic) IBD (inflammatory bowel disease) (Chronic) PCOS (polycystic ovarian syndrome) (Chronic) Surgical History H/O laparoscopy (Resolved) History of (Resolved) History of orthopedic surgery (Resolved) S/P appy (Resolved) Social History household members: spouse and children Smoking Status: Never smoker alcohol intake: never Review of Systems Review of Systems Patient complains of nausea and some burning with urination. Patient has low- grade fever. Patient is having increased right flank pain. She also has back pain. She states she has known hydronephrosis on her right side. Patient denies any vaginal bleeding. She denies any feeling of contractions. Exam Narrative Exam Narrative: Patient has some CVA tenderness right greater than left. She does have tenderness in the right area to the muscles with palpation. Patient does complain of some mild abdominal tenderness which she says she has had. Uterus is appropriately sized for her gestation. Extremities without edema and nontender. Objective Labs Result Diagrams: 03/04/18 13:34 Labs: Laboratory Results - last 24 hr 03/04/18 03/04/18 13:31 13:34 WBC 8.7 RBC 4.08 Hgb 12.4 Hct 36.4 MCV 89.3 MCH 30.4 MCHC 34.1 RDW 13.6 Plt Count 254 Neut % (Auto) 78.3 H Lymph % (Auto) 16.2 L [place] % (Auto) 4.6 Eos % (Auto) 0.3 L Baso % (Auto) 0.6 Neut # (Auto) 6800 H Urine Color Yellow Urine Appearance Clear Urine pH 6.0 Ur Specific [place] 1.010 Urine Protein Negative Urine Glucose (UA) Negative Urine Ketones 1+ H Urine Occult Blood Negative Urine Nitrate Negative Urine Bilirubin Negative Urine Urobilinogen 0.2 Ur Leukocyte Esterase Negative Urine RBC None seen Urine WBC None seen Urine Bacteria None seen Ur Culture Indicated? Cult not indicated Micro UA Comment Not Reportable Evaluation Evaluation Baseline heart rate: 140 Variability: Average (6-10) Contraction Frequency (minutes): 0 Laboratory results: Laboratory Tests 03/04/18 03/04/18 13:31 13:34 WBC 8.7 RBC 4.08 Hgb 12.4 Hct 36.4 MCV 89.3 MCH 30.4 MCHC 34.1 RDW 13.6 Plt Count 254 Neut % (Auto) 78.3 H Lymph % (Auto) 16.2 L [place] % (Auto) 4.6 Eos % (Auto) 0.3 L Baso % (Auto) 0.6 Neut # (Auto) 6800 H Urine Color Yellow Urine Appearance Clear Urine pH 6.0 Ur Specific [place] 1.010 Urine Protein Negative Urine Glucose (UA) Negative Urine Ketones 1+ H Urine Occult Blood Negative Urine Nitrate Negative Urine Bilirubin Negative Urine Urobilinogen 0.2 Ur Leukocyte Esterase Negative Urine RBC None seen Urine WBC None seen Urine Bacteria None seen Ur Culture Indicated? Cult not indicated Micro UA Comment Not Reportable Diagnosis, Plan/Disposition Final Diagnosis (1) Back pain: Current Visit: No Status: Acute (2) Nausea & vomiting: Current Visit: No Status: Acute (3) 21 weeks gestation of : Current Visit: Yes Status: Acute (4) Second trimester : Current Visit: Yes Status: Acute Plan/Disposition Plan: No evidence for pyelonephritis. The patient reassured. She is to push fluids and lay on her left side. Call for any worsening of symptoms. Keep her routine OB appointment
== END 2018-03-04 14:55 | disposition home or self-care (01) ==
PROVIDERS: Admitting Provider Specialist; Family Provider Family Medicine; PCP Family Medicine; Visit Provider Specialist
DX: O26.892 Other specified pregnancy related conditions, second trimester (principal); Z3A.21 21 weeks gestation of pregnancy; R11.2 Nausea with vomiting, unspecified; R10.9 Unspecified abdominal pain
CPT/HCPCS: 59025; 59050; 81001; 85025; G0378; G0379

== ENCOUNTER 2018-03-25 14:27 | Emergency (ER) | payer OTHER, MEDICAID, SELFPAY ==
[2018-01-10 19:23] VITALS: BMI 26.2
[2018-03-25 14:32] VITALS: BP 101/68; PULSE 93; RESP 14; TEMP 36.4; O2SAT 100; BMI 28.1
[2018-03-25 14:53] LABS: Add Manual Diff / Slide Review NO; Basophils Percent Auto 0.5 % (0-2); Eosinophils Percent Auto 0.1 % (2-4); Hematocrit 36.2 % (36-46); Hemoglobin 12.2 g/dL (12.0-16.0); Lymphocytes Percent Auto 13.9 % (25-40); Mean Corpuscular HGB Conc 33.7 % (30-36); Mean Corpuscular Hemoglobin 29.8 PG (26-34); Mean Corpuscular Volume 88.2 fL (80-100); Monocytes Percent Auto 4.7 % (3-14); Neutrophils Absolute Auto 8700 /uL (3000-5900); Neutrophils Percent Auto 80.8 % (50-75); Platelet Count 277 X10^3/uL (150-400); White Blood Cell Count 10.7 X10^3/uL (4.5-11.0)
[2018-03-25] MEDS: SODIUM CHLORIDE 0.9% 1,000 ML 1000 ML IV (14:53)
[2018-03-25 14:58] LABS: INR 1.1 (0.9-1.3); Prothrombin Time 11.6 SECONDS (10.1-12.7)
[2018-03-25 15:01] LABS: PTT Partial Thromboplastin Tim 27 SECONDS (26.4-36.2)
[2018-03-25 15:04] LABS: Alanine Aminotransferase 17 IU/L (9-52); Albumin Globulin Ratio 1.3 (1.0-2.8); Alkaline Phosphatase 65 U/L (38-126); Aspartate Aminotransferase 17 IU/L (14-36); Bilirubin Total 0.4 mg/dL (0.2-1.3); Blood Urea Nitrogen 10 mg/dL (7-17); Calcium 8.8 mg/dL (8.4-10.2); Carbon Dioxide 25 mmol/L (22-32); Chloride 106 mmol/L (98-107); Estimated Glomerular Filt Rate > 60.0 mL/min (>60); Glucose 79 mg/dL (70-100); HEMOLYSIS < 15 (0-50); Lipase 78 U/L (23-300); Potassium 3.8 mmol/L (3.4-5.1); Sodium 140 mmol/L (137-145)
--- NOTE | 2018-03-25 15:09 | ED_ITS ---
HPI - Nausea/Vomiting/Diarrhea General Chief complaint: Nausea/Vomiting/Diarrhea Stated complaint: VOMITING, KIDNEY ISSUES Time Seen by Provider: 03/25/18 15:01 Source: patient Mode of arrival: ambulatory Limitations: no limitations History of Present Illness HPI Narrative: Patient is a 32-year-old female who presents with vomiting for the last 3-4 days. She is currently 24 weeks she has known bilateral hydronephrosis. She is having increasing pain in her right flank. She has been unable to keep anything down. No fever no painful or frequent urination. No vaginal bleeding or discharge. She is a g-8 P 1 MD complaint: nausea and vomiting Related Data Home Medications Medication Instructions Recorded Confirmed esomeprazole magnesium [Nexium] 40 mg PO QPM #0 03/29/16 03/25/18 PNV cmb#95-ferrous fumarate-FA 1 tab PO QPM 03/25/18 03/25/18 [] ondansetron 1 tab PO PRN PRN 03/25/18 03/25/18 Allergies Allergy/AdvReac Type Severity Reaction Status Date / Time amoxicillin Allergy Intermediate Vomiting Verified 03/25/18 14:39 aspirin Allergy Mild Watery Eye Verified 03/25/18 14:39 codeine Allergy Mild Vomiting Verified 03/25/18 14:39 phenazopyridine Allergy Mild Swelling Verified 03/25/18 14:39 [From Pyridium] of Lip/Tongue/Throat Review of Systems Review of Systems GENERAL: Denies chills, fatigue, malaise, fever, sweats, travelHEENT: Denies sinus pain, ear pain, sore throat, difficulty swallowing, neck painRESPIRATORY: Denies dyspnea, cough, wheezing, hemoptysis, sputum.CARDIOVASCULAR: Denies chest pain, palpitations, orthopnea, edema GASTROINTESTINAL: Nausea, vomiting.: Right-sided flank pain.MUSCULOSKELETAL: Denies weakness, joint pain, or bony painSKIN: No rash, no erythema, no pruritusNEUROLOGIC: Denies weakness, dizziness, headache, numbness, change in speech, confusionPSYCHIATRIC : No concerning psychosocial issues.12 point review of systems is negative except for those stated above and HPI PFSH Medical History History of multiple miscarriages (Acute) Endometriosis (Chronic) IBD (inflammatory bowel disease) (Chronic) PCOS (polycystic ovarian syndrome) (Chronic) Surgical History H/O laparoscopy (Resolved) History of (Resolved) History of orthopedic surgery (Resolved) S/P appy (Resolved) Social History household members: spouse and children Smoking Status: Never smoker alcohol intake: never Exam Initial Vital Signs Initial Vital Signs: Vital Signs Temperature 97.5 F L 03/25/18 14:32 Pulse Rate 93 H 03/25/18 14:32 Respiratory Rate 14 03/25/18 14:32 Blood Pressure 101/68 03/25/18 14:32 Pulse Oximetry 100 03/25/18 14:32 GENERAL: Well-appearing, well-nourished and in no acute distress. HEENT: Head atraumatic,EOMI, pupils reactive, face symmetric neck is supple no JVD, moist mucous membranes CARDIOVASCULAR: Regular rate and rhythm without murmurs, rubs or gallops. RESPIRATORY: Breath sounds equal bilaterally, no wheezes rales or rhonchi. ABDOMEN: Soft, gravid no right upper quadrant tenderness no guarding or rebound : Right flank pain CVA tenderness EXTREMITIES: Normal range of motion, no clubbing or edema. Neurovascularly intact NEUROLOGICAL: Alert and oriented x4.Normal gait and speech. SKIN: Warm, dry, no laceration, no petechiae, no rashes or lesions. Course Orders Ordered: ED Orders 03/25/18 14:44 Complete Blood Count AUTO DIFF Stat Comprehensive Metabolic Panel Stat Lipase Stat Partial Thromboplastin Time Stat Prothrombin Time INR Stat 03/25/18 14:48 Urine Microscopic Stat 03/25/18 15:10 renal complete Stat Discontinued Medications Acetaminophen (Tylenol) 650 mg PO NOW ONE Stop: 03/25/18 17:05 Last Admin: 03/25/18 17:06 Dose: 650 mg Diphenhydramine HCl (Benadryl) 25 mg IV NOW ONE Stop: 03/25/18 15:11 Last Admin: 03/25/18 15:23 Dose: Not Given Sodium Chloride (Normal Saline 0.9%) 1,000 mls @ 1,000 mls/hr IV BOLUS ONE Stop: 03/25/18 15:48 Last Infusion: 03/25/18 15:34 Dose: 0 mls/hr Admin: 03/25/18 14:53 Dose: 1,000 mls/hr Ondansetron HCl (Zofran) 4 mg IV NOW ONE Stop: 03/25/18 14:50 Ondansetron HCl (Zofran) 4 mg IV NOW ONE Stop: 03/25/18 15:11 Last Admin: 03/25/18 15:23 Dose: 4 mg Vital Signs - 8 hr 03/25/18 14:32 03/25/18 15:36 03/25/18 16:20 Temperature 97.5 F L Pulse Rate 93 H 80 74 Respiratory Rate 14 16 Blood Pressure 101/68 Blood Pressure [Left Arm] 101/55 L 101/55 L Pulse Oximetry 100 100 100 MDM - Nausea/Vomiting/Diarrhea Lab Data Attestation: I reviewed the patient's lab results. Result diagrams: 03/25/18 14:44 03/25/18 14:44 Lab Results 03/25/18 03/25/18 03/25/18 Range/Units 14:44 14:44 14:44 WBC 10.7 (4.5-11.0) X10^3/uL RBC 4.10 (4.0-5.2) X10^6/uL Hgb 12.2 (12.0-16.0) g/dL Hct 36.2 (36-46) % MCV 88.2 (80-100) fL MCH 29.8 (26-34) PG MCHC 33.7 (30-36) % RDW 13.0 (11.6-14.8) % Plt Count 277 (150-400) X10^3/uL Neut % (Auto) 80.8 H (50-75) % Lymph % (Auto) 13.9 L (25-40) % [place] % (Auto) 4.7 (3-14) % Eos % (Auto) 0.1 L (2-4) % Baso % (Auto) 0.5 (0-2) % Neut # (Auto) 8700 H (5256-4751) /uL PT 11.6 (10.1-12.7) SECONDS INR 1.1 (0.9-1.3) APTT 27 (26.4-36.2) SECONDS Sodium 140 (137-145) mmol/L Potassium 3.8 (3.4-5.1) mmol/L Chloride 106 (98-107) mmol/L Carbon Dioxide 25 (22-32) mmol/L BUN 10 (7-17) mg/dL Creatinine 0.50 L (0.52-1.04) mg/dL Estimated GFR > 60.0 (>60) mL/min BUN/Creatinine Ratio 20.0 (6-22) Glucose 79 (70-100) mg/dL Calcium 8.8 (8.4-10.2) mg/dL Total Bilirubin 0.4 (0.2-1.3) mg/dL AST 17 (14-36) IU/L ALT 17 (9-52) IU/L Alkaline Phosphatase 65 (38-126) U/L Total Protein 7.0 (6.3-8.2) g/dL Albumin 4.0 (3.5-5.0) g/dL Globulin 3.0 (1.7-4.1) g/dL Albumin/Globulin Ratio 1.3 (1.0-2.8) Lipase 78 (23-300) U/L Urine RBC (0-5/HPF) Urine WBC (0-5/HPF) Urine Bacteria (None) Ur Culture Indicated? Micro UA Comment 03/25/18 Range/Units 14:48 WBC (4.5-11.0) X10^3/uL RBC (4.0-5.2) X10^6/uL Hgb (12.0-16.0) g/dL Hct (36-46) % MCV (80-100) fL MCH (26-34) PG MCHC (30-36) % RDW (11.6-14.8) % Plt Count (150-400) X10^3/uL Neut % (Auto) (50-75) % Lymph % (Auto) (25-40) % [place] % (Auto) (3-14) % Eos % (Auto) (2-4) % Baso % (Auto) (0-2) % Neut # (Auto) (8608-8364) /uL PT (10.1-12.7) SECONDS INR (0.9-1.3) APTT (26.4-36.2) SECONDS Sodium (137-145) mmol/L Potassium (3.4-5.1) mmol/L Chloride (98-107) mmol/L Carbon Dioxide (22-32) mmol/L BUN (7-17) mg/dL Creatinine (0.52-1.04) mg/dL Estimated GFR (>60) mL/min BUN/Creatinine Ratio (6-22) Glucose (70-100) mg/dL Calcium (8.4-10.2) mg/dL Total Bilirubin (0.2-1.3) mg/dL AST (14-36) IU/L ALT (9-52) IU/L Alkaline Phosphatase (38-126) U/L Total Protein (6.3-8.2) g/dL Albumin (3.5-5.0) g/dL Globulin (1.7-4.1) g/dL Albumin/Globulin Ratio (1.0-2.8) Lipase (23-300) U/L Urine RBC 0-1/hpf (0-5/HPF) Urine WBC 0-1/hpf (0-5/HPF) Urine Bacteria None seen (None) Ur Culture Indicated? Not Reportable Micro UA Comment Not Reportable Urine Dip Bedside Urine Glucose Negative Bedside Urine Bilirubin - Negative Bedside Urine Ketone +++ 80 Urine Specific [place] 1.030 Bedside Urine Occult Blood - Negative Bedside Urine pH 6.0 Bedside Urine Protein +/- 15 Bedside Urine Urobilinogen - Negative Bedside Urine Nitrite - Negative Bedside Urine Leukocytes - Negative Esterase Imaging Data US - abdomen: Radiologist's impression: PROCEDURE: US RENAL COMPLETE INDICATIONS: patient with known hyrdonephrosis, right pain TECHNIQUE: Real-time scanning was performed of the kidneys and bladder, with image documentation. COMPARISON: None. FINDINGS: Kidneys: Kidneys are normal in size. Right kidney measures 11.4 cm long; left kidney measures 10.3 cm long. Right renal cortical thickness is 1.7 cm; left renal cortical thickness is 1.6 cm. Renal cortical echotexture is normal. No significant hydronephrosis, or nephrolithiasis. No suspicious solid mass lesions. Bladder: Pre-void bladder volume is 47 mL. Post-void residual is 47 mL. Pre- void images demonstrate no intraluminal masses or stones. On pre-void images, bilateral ureteral jets are noted with color Doppler interrogation. (Of note, ureteral jets may not be detectable in up to 25% of cases due to insufficient differences in specific gravity between ureteral and bladder urine). Miscellaneous: No free pelvic fluid. IMPRESSION: patient with minimal prominence of the right collecting system, with the proximal right ureter in the normal range of 6 mm. A urinary tract stone or significant hydronephrosis is not found. The bladder is not distended, with prevoid bladder volume 47 cc and the patient could not void voluntarily. Post void residual therefore also is 47 cc were slightly higher. Dictated by: Andrew Szymanski M.D. on 03/25/2018 at 16:55 MDM Narrative Medical decision making narrative: Overall patient is feeling much better. The nausea is gone she is hydrated tolerating oral fluids. She feels ready and able to go home. She has no right upper quadrant pain and no right lower quadrant pain I do not suspect cholecystitis or cholelithiasis or appendicitis. She also is afebrile and no leukocytosis. No sign of UTI. Discharge Plan Departure Patient Disposition: Home Clinical Impression: Hyperemesis gravidarum Instructions: Hyperemesis Gravidarum Activity Restrictions/Additional Instructions: 1) You have been diagnosed with hyperemesis gravidarum 2) What to do: Drink frequent but small amounts of fluids. I recommend Gatorade or a Gatorade-like product, as it has small amounts of sugar and salts that improve fluid retention. 3) Take medications as directed 4) Follow up with your primary care provider in 2-3 days 5) Return to ER if you should have any new or worsening symptoms such as, unable to hold down fluids despite use of anti-nausea medications and the small volume oral rehydration strategy. Prescriptions: No Action esomeprazole magnesium [Nexium] 40 MG capsule,delayed release(DR/EC) 40 mg PO QPM Qty: 0 RF: 0 ondansetron 8 mg tablet,disintegrating 1 tab PO PRN PRN (Reason: Nausea) RF: 0 PNV cmb#95-ferrous fumarate-FA [] 28 mg iron- 800 mcg Tablet 1 tab PO QPM RF: 0 Referrals: Levi Ortega MD [Family Provider] - Stacie Danielson DO [Primary Care Provider] -
[2018-03-25] MEDS: ONDANSETRON 4 MG/2 ML INJ IV (15:23)
--- NOTE | 2018-03-25 15:35 | PC.NURSE ---
Pt ambulated to bathroom after 1 liter NS IV infusion completed. Pt reports was able to void easier at this time.
[2018-03-25 15:36] VITALS: BP 101/55; PULSE 80; RESP 16; O2SAT 100
[2018-03-25 15:46] LABS: Bacteria Urine None Seen
[2018-03-25 16:04] LABS: RBC Urine 0-1/HPF (0-5/HPF); WBC Urine 0-1/HPF (0-5/HPF)
[2018-03-25 16:20] VITALS: BP 101/55; PULSE 74; O2SAT 100
--- NOTE | 2018-03-25 16:36 | PC.NURSE ---
Pt reports nausea improved but flanks pain still remaining. Declines pain med at this time.
[2018-03-25] MEDS: ACETAMINOPHEN 325 MG TABLET 650 MG PO (17:06)
[2018-03-25 17:39] VITALS: BP 100/48; PULSE 71; O2SAT 100
[2018-03-25] MEDS: diphenhydrAMINE 50 MG/ML VIAL 25 MG IV (17:53)
== END 2018-03-25 17:40 | disposition home or self-care (01) ==
PROVIDERS: Emergency Provider Emergency Medicine; Family Provider Family Medicine; PCP Family Medicine
DX: O21.0 Mild hyperemesis gravidarum (principal); Z3A.24 24 weeks gestation of pregnancy
CPT/HCPCS: 36591; 76770; 80053; 81003; 81015; 83690; 85025; 85610; 85730; 96361; 96374; 96375; 99283; 99284; J1200; J2405

== ENCOUNTER → 2018-04-12 14:38 | Outpatient (CLI) | payer OTHER, SELFPAY ==
[2018-01-10 19:23] VITALS: BMI 26.2
[2018-04-12 16:18] LABS: Appearance Urine UA CLEAR; Bilirubin Urine UA NEGATIVE (NEGATIVE); Color Urine UA YELLOW; Glucose Urine UA NEGATIVE (Normal); Ketones Urine UA 1+ (NEGATIVE); Leukocyte Esterase Urine UA NEGATIVE (NEGATIVE); Nitrite Urine UA Negative (Negative); Occult Blood Urine UA NEGATIVE (Negative); Protein Urine UA TRACE (Negative); Specific Gravity Urine UA 1.025 (1.000-1.035); Urobilinogen Urine UA 0.2 E.U./dL (0.2)
[2018-04-12 16:28] LABS: Hematocrit 34.7 % (36-46); Hemoglobin 11.8 g/dL (12.0-16.0)
[2018-04-12 17:19] LABS: GTT (PREG) 1 Hour PP 50gm Dose 124 mg/dL (76-139)
== END ==
PROVIDERS: Family Provider Family Medicine; PCP Family Medicine; Visit Provider Family Medicine
DX: Z34.82 Encounter for supervision of other normal pregnancy, second trimester (principal); Z34.92 Encounter for supervision of normal pregnancy, unspecified, second trimester
CPT/HCPCS: 36415; 81003; 82950; 85014; 85018

== ENCOUNTER 2018-04-16 11:09 | Outpatient (CLI) | payer OTHER, SELFPAY ==
[2018-01-10 19:23] VITALS: BMI 26.2
[2018-04-16 12:17] LABS: Appearance Urine UA CLEAR; Bacteria Urine None Seen; Bilirubin Urine UA NEGATIVE (NEGATIVE); Color Urine UA YELLOW; Glucose Urine UA NEGATIVE (Normal); Ketones Urine UA NEGATIVE (NEGATIVE); Leukocyte Esterase Urine UA TRACE (NEGATIVE); Nitrite Urine UA Negative (Negative); Occult Blood Urine UA NEGATIVE (Negative); Protein Urine UA NEGATIVE (Negative); RBC Urine None Seen (0-5/HPF); Urobilinogen Urine UA 0.2 E.U./dL (0.2); WBC Urine None Seen (0-5/HPF)
[2018-04-16 12:38] LABS: Culture Indicated Urine Cult Not Indicated; Urine Comments Microscopic Normal
--- NOTE | 2018-04-16 13:43 | P.TNLD_ITS ---
Visit Information Visit Information Date of evaluation: 04/16/18 Reason for Evaluation: Yes pre-term labor PFSH Medical History History of multiple miscarriages (Acute) Endometriosis (Chronic) IBD (inflammatory bowel disease) (Chronic) PCOS (polycystic ovarian syndrome) (Chronic) Surgical History H/O laparoscopy (Resolved) History of (Resolved) History of orthopedic surgery (Resolved) S/P appy (Resolved) Social History household members: spouse and children Smoking Status: Never smoker alcohol intake: never Review of Systems Review of Systems Patient comes in complaining of low back cramping. She states they are coming about every 9 min and can be quite strong. Patient has a history of labor and was treated with progesterone and nifedipine in a prior . She feels like these are labor contractions. She denies any vaginal bleeding. No fevers. She does not believe this pain is similar to her pain from her hydronephrosis. She has had good movement. All systems reviewed & are unremarkable except as noted in HPI and below Exam Narrative Exam Narrative: Patient's abdomen is soft, nontender. Patient does not have any CVA tenderness. She does not have tenderness in her lower back where she is complaining of the cramping. Objective Labs Labs: Laboratory Results - last 24 hr 04/16/18 Unknown Urine Color Yellow Urine Appearance Clear Urine pH 7.0 Ur Specific [place] 1.010 Urine Protein Negative Urine Glucose (UA) Negative Urine Ketones Negative Urine Occult Blood Negative Urine Nitrate Negative Urine Bilirubin Negative Urine Urobilinogen 0.2 Ur Leukocyte Esterase Trace H Urine RBC None seen Urine WBC None seen Urine Bacteria None seen Ur Culture Indicated? Cult not indicated Micro UA Comment Microscopic normal Evaluation Evaluation Baseline heart rate: 130 Variability: Moderate (11-25) monitor accelerations: Present monitor decelerations: Absent Contraction Frequency (minutes): 20 Category of Tracing: I Laboratory results: Laboratory Tests 04/16/18 Unknown Urine Color Yellow Urine Appearance Clear Urine pH 7.0 Ur Specific [place] 1.010 Urine Protein Negative Urine Glucose (UA) Negative Urine Ketones Negative Urine Occult Blood Negative Urine Nitrate Negative Urine Bilirubin Negative Urine Urobilinogen 0.2 Ur Leukocyte Esterase Trace H Urine RBC None seen Urine WBC None seen Urine Bacteria None seen Ur Culture Indicated? Cult not indicated Micro UA Comment Microscopic normal Diagnosis, Plan/Disposition Final Diagnosis (1) 27 weeks gestation of : Current Visit: No Status: Acute (2) Premature labor: Current Visit: No Status: Acute Plan/Disposition Plan: Patient at 27 weeks with a history of labor with a prior now concerned she might be starting and labor again. She would like to start on nifedipine and was given prescriptions. She is to call Dr. Ortega an schedule a follow-up appointment sooner than her currently schedule appointment in 4 week
[2018-04-16] MEDS: NIFEdipine 10 MG CAPSULE PO (13:51)
== END 2018-04-16 13:54 | disposition home or self-care (01) ==
LOC: LABOR 13:50 → OB 04-20 08:45
PROVIDERS: Family Provider Family Medicine; PCP Specialist; Visit Provider Specialist
DX: O60.02 Preterm labor without delivery, second trimester (principal); Z3A.27 27 weeks gestation of pregnancy
CPT/HCPCS: 59025; 59050; 81001; G0378; G0379

== ENCOUNTER 2018-04-27 15:56 | Observation (INO) | payer OTHER, MEDICAID, SELFPAY ==
[2018-01-10 19:23] VITALS: BMI 26.2
[2018-04-27 16:41] LABS: Bacteria Urine None Seen
[2018-04-27 16:43] LABS: Appearance Urine UA CLEAR; Bilirubin Urine UA NEGATIVE (NEGATIVE); Color Urine UA YELLOW; Glucose Urine UA NEGATIVE (Normal); Ketones Urine UA 1+ (NEGATIVE); Leukocyte Esterase Urine UA NEGATIVE (NEGATIVE); Nitrite Urine UA Negative (Negative); Occult Blood Urine UA NEGATIVE (Negative); Protein Urine UA NEGATIVE (Negative); Urobilinogen Urine UA 0.2 E.U./dL (0.2)
[2018-04-27 16:56] LABS: Culture Indicated Urine Cult Not Indicated; RBC Urine 0-1/HPF (0-5/HPF); Urine Comments Microscopic Normal; WBC Urine 0-1/HPF (0-5/HPF)
--- NOTE | 2018-04-27 18:10 | PM.OBTRLD ---
Visit Information Visit Information Date of evaluation: 04/26/18 Primary OB Provider: Levi Ortega On-call OB Provider: Cat Villafana Reason for Evaluation: Yes other Comments/Additional reasons for admission: Pt with left lower quadrant abdominal pain. Onset 2 days ago. Acutely worsened last night/this morning. No worse with eating. Worse with movement, particularly standing from sitting. Mild nausea, did vomit once. No change in BMs/constipation. [facility] Social History household members: spouse and children Smoking Status: Never smoker alcohol intake: never Exam Narrative Exam Narrative: Gen: NAD, sitting comfortably in bed, appears well CV: RRR, no murmurs Resp: clear to auscultation bilaterally Abd: soft, gravid, tender to palpation LLQ that is no worse with deeper palpation, no rebound/rigidity, minimal guarding, normoactive bowel sounds Ext: trace edema Objective Labs Labs: Laboratory Results - last 24 hr 04/27/18 16:39 Urine Color Yellow Urine Appearance Clear Urine pH 7.0 Ur Specific [place] 1.010 Urine Protein Negative Urine Glucose (UA) Negative Urine Ketones 1+ H Urine Occult Blood Negative Urine Nitrate Negative Urine Bilirubin Negative Urine Urobilinogen 0.2 Ur Leukocyte Esterase Negative Urine RBC 0-1/hpf Urine WBC 0-1/hpf Urine Bacteria None seen Ur Culture Indicated? Cult not indicated Micro UA Comment Microscopic normal Evaluation Evaluation Baseline heart rate: 125 Variability: Moderate (11-25) monitor accelerations: Present monitor decelerations: Absent Category of Tracing: I Laboratory results: Laboratory Tests 04/27/18 16:39 Urine Color Yellow Urine Appearance Clear Urine pH 7.0 Ur Specific [place] 1.010 Urine Protein Negative Urine Glucose (UA) Negative Urine Ketones 1+ H Urine Occult Blood Negative Urine Nitrate Negative Urine Bilirubin Negative Urine Urobilinogen 0.2 Ur Leukocyte Esterase Negative Urine RBC 0-1/hpf Urine WBC 0-1/hpf Urine Bacteria None seen Ur Culture Indicated? Cult not indicated Micro UA Comment Microscopic normal Diagnosis, Plan/Disposition Final Diagnosis (1) Musculoskeletal pain: Current Visit: No Status: Acute Plan/Disposition Plan: Most likely muscle strain, with pain worse with movement and no worse with deeper palpation. Recommend trial of support belt. Relative rest. Heat at home. Tylenol okay. Contact primary OB in the morning if not improving. Did receive Morphine at directive of Dr Baeza for pain control. OB Disposition: home
[2018-04-27] MEDS: MORPHINE 10 MG/ML INJ IM (18:15)
== END 2018-04-27 18:39 | disposition home or self-care (01) ==
PROVIDERS: Admitting Provider Family Medicine; Family Provider Family Medicine; PCP Specialist; Visit Provider Family Medicine
DX: O26.23 Pregnancy care for patient with recurrent pregnancy loss, third trimester (principal); Z3A.29 29 weeks gestation of pregnancy; M79.2 Neuralgia and neuritis, unspecified; R10.9 Unspecified abdominal pain
CPT/HCPCS: 59025; 59050; 81001; G0378; G0379; J2270

== ENCOUNTER 2018-04-28 07:23 | Emergency (ER) | payer OTHER, MEDICAID, SELFPAY ==
[2018-01-10 19:23] VITALS: BMI 26.2
--- NOTE | 2018-04-28 07:28 | ED_ITS ---
HPI - Nausea/Vomiting/Diarrhea General Chief complaint: Nausea/Vomiting/Diarrhea Stated complaint: vomiting since yesterday, pain left side Time Seen by Provider: 04/28/18 07:28 Source: patient Mode of arrival: ambulatory Limitations: no limitations History of Present Illness HPI Narrative: 32-year-old approximately 29 weeks EGA here for evaluation of 12 hr of nausea vomiting. Patient states that yesterday she went to Labor and delivery because she is having some lower abdominal pain. She states she had a nonstress test was did not show any cramping. She received a shot of morphine and was discharged home. She states that approximately 30 min after getting the shot of morphine she started vomiting and has been vomiting since then. She does state that she has the lower abdominal pain but she feels it is secondary to the vomiting that she has been having. No urinary symptoms. No vaginal bleeding. No cramping. Related Data Home Medications Medication Instructions Recorded Confirmed esomeprazole magnesium [Nexium] 40 mg PO QPM #0 03/29/16 03/25/18 PNV cmb#95-ferrous fumarate-FA 1 tab PO QPM 03/25/18 03/25/18 [] Previous Rx's Medication Instructions Recorded ondansetron 8 mg disintegrating 8 mg PO Q8H PRN #30 tab 04/12/18 tablet nifedipine 30 mg PO DAILY #30 tab 04/16/18 nifedipine See Label Instructions .ROUTE 04/16/18 .COMPLEX #30 cap Allergies Allergy/AdvReac Type Severity Reaction Status Date / Time amoxicillin Allergy Intermediate Vomiting Verified 04/28/18 07:31 aspirin Allergy Mild Watery Eye Verified 04/28/18 07:31 codeine Allergy Mild Vomiting Verified 04/28/18 07:31 phenazopyridine Allergy Mild Swelling Verified 04/28/18 07:31 [From Pyridium] of Lip/Tongue/Throat Review of Systems Constitutional Denies fever(s) ENT Ears, Nose, Mouth, and Throat: Denies vertigo and Denies dizziness Cardiovascular Denies chest pain and Denies dyspnea Respiratory Denies dyspnea Gastrointestinal Gastrointestinal: Reports abdominal pain, Denies constipation, Denies cramping, Denies diarrhea, Reports nausea and Reports vomiting Genitourinary Denies dysuria and Denies vaginal discharge Musculoskeletal Denies myalgias and Denies arthralgias Integumentary/Breasts Denies lesions and Denies rash Neurologic Denies vertigo and Denies dizziness [facility] Medical History History of multiple miscarriages (Acute) Endometriosis (Chronic) IBD (inflammatory bowel disease) (Chronic) PCOS (polycystic ovarian syndrome) (Chronic) Surgical History H/O laparoscopy (Resolved) History of (Resolved) History of orthopedic surgery (Resolved) S/P appy (Resolved) Social History household members: spouse and children Smoking Status: Never smoker alcohol intake: never Exam Initial Vital Signs Initial Vital Signs: Vital Signs Temperature 98.1 F 04/28/18 07:31 Pulse Rate 122 H 04/28/18 07:31 Respiratory Rate 20 04/28/18 07:31 Blood Pressure 111/65 04/28/18 07:31 Pulse Oximetry 100 04/28/18 07:31 Const General: cooperative, well developed, well groomed and No acute distress Orientation: alert, awake and oriented x3 [facility] Head: normocephalic Resp Effort & Inspection: normal respiratory effort Auscultation: clear to auscultation bilaterally Cardio Rate: tachycardic Pulses: radial pulses present GI Other: Gravid abdomen, can palpate movement Back/Spine/Pelvis Back: No CVA tenderness Skin Lesions: no lesions Rashes: no rashes Neuro General: alert, awake and oriented x3 Cognition: normal cognition Speech: speech normal Sensory Exam: no sensory deficits noted Extrem General: normal to inspection and capillary refill normal Psych Appearance: grossly normal and well kempt Course Orders Ordered: ED Orders 04/28/18 07:50 Complete Blood Count AUTO DIFF Stat Comprehensive Metabolic Panel Stat Lipase Stat Discontinued Medications Diphenhydramine HCl (Benadryl) 25 mg IV NOW ONE Stop: 04/28/18 07:37 Last Admin: 04/28/18 07:54 Dose: 25 mg Sodium Chloride (Normal Saline 0.9%) 1,000 mls @ 1,000 mls/hr IV BOLUS ONE Stop: 04/28/18 08:27 Last Infusion: 04/28/18 09:12 Dose: 0 mls/hr Admin: 04/28/18 07:54 Dose: 1,000 mls/hr Ondansetron HCl (Zofran) 4 mg IV NOW ONE Stop: 04/28/18 07:29 Last Admin: 04/28/18 07:54 Dose: 4 mg Vital Signs - 8 hr 04/28/18 07:31 04/28/18 07:45 04/28/18 08:00 Temperature 98.1 F Pulse Rate 122 H 105 H 85 Respiratory Rate 20 16 18 Blood Pressure 111/65 Blood Pressure [Left Arm] 108/77 101/56 L Pulse Oximetry 100 99 100 04/28/18 08:30 Temperature Pulse Rate 74 Respiratory Rate 16 Blood Pressure Blood Pressure [Left Arm] 92/54 L Pulse Oximetry 100 MDM - Nausea/Vomiting/Diarrhea Lab Data Attestation: I reviewed the patient's lab results. Result diagrams: 04/28/18 07:50 04/28/18 07:50 Lab Results 04/28/18 04/28/18 Range/Units 07:50 07:50 WBC 11.8 H (4.5-11.0) X10^3/uL RBC 4.20 (4.0-5.2) X10^6/uL Hgb 12.1 (12.0-16.0) g/dL Hct 36.2 (36-46) % MCV 86.2 (80-100) fL MCH 28.7 (26-34) PG MCHC 33.3 (30-36) % RDW 12.8 (11.6-14.8) % Plt Count 285 (150-400) X10^3/uL Neut % (Auto) 87.9 H (50-75) % Lymph % (Auto) 8.1 L (25-40) % Cooper % (Auto) 3.7 (3-14) % Eos % (Auto) 0.1 L (2-4) % Baso % (Auto) 0.2 (0-2) % Neut # (Auto) 81189 H (6687-6608) /uL Sodium 140 (137-145) mmol/L Potassium 4.2 (3.4-5.1) mmol/L Chloride 103 (98-107) mmol/L Carbon Dioxide 25 (22-32) mmol/L BUN 12 (7-17) mg/dL Creatinine 0.50 L (0.52-1.04) mg/dL Estimated GFR > 60.0 (>60) mL/min BUN/Creatinine Ratio 24.0 H (6-22) Glucose 116 H (70-100) mg/dL Calcium 9.2 (8.4-10.2) mg/dL Total Bilirubin 0.5 (0.2-1.3) mg/dL AST 24 (14-36) IU/L ALT 22 (9-52) IU/L Alkaline Phosphatase 91 (38-126) U/L Total Protein 7.4 (6.3-8.2) g/dL Albumin 4.1 (3.5-5.0) g/dL Globulin 3.3 (1.7-4.1) g/dL Albumin/Globulin Ratio 1.2 (1.0-2.8) Lipase 88 (23-300) U/L Urine Dip Bedside Urine Glucose Negative Bedside Urine Bilirubin - Negative Bedside Urine Ketone +++ 80 Urine Specific [place] 1.030 Bedside Urine Occult Blood - Negative Bedside Urine pH 6.0 Bedside Urine Protein + 30 Bedside Urine Urobilinogen - Negative Bedside Urine Nitrite - Negative Bedside Urine Leukocytes - Negative Esterase MDM Narrative Medical decision making narrative: Patient with resolution of nausea and itching after Zofran and Benadryl through the IV. She was able to tolerate small amounts fluids by mouth. I suspect that her slight leukocytosis is demargination secondary to the vomiting. Has no signs of urinary tract infection. Has a significant amount of ketones which I suspect is from all of the vomiting. During my exam I palpated movement of the fetus. Patient denies any cramping or vaginal bleeding or loss of fluid. She does have left-sided abdominal pain. We did discuss this. We did discussed the possibility of an intra-abdominal infection such as diverticulitis or other abnormality such as a small bowel obstruction. Her exam is not consistent with small bowel obstructions. We did discuss the possibility of doing a CT scan and the risks and benefits to the fetus. After this discussion we decided to hold on any CT scans for now. Patient was going to try some laxatives at home since she states that she has had only very small bowel movements over the past couple days. She has Zofran at home. We did discuss the importance of increasing her fluid. Informed her that if her symptoms worsen or abdominal pain worsens or if she is unable to tolerate oral intake at home she does need to return to the emergency department. The patient expressed understanding and agreement with this plan. Discharge Plan Departure Patient Disposition: Home Clinical Impression: Nausea and vomiting during , Abdominal pain affecting Instructions: DI for Abdominal Pain-Adult, Nausea and Vomiting-Adult Activity Restrictions/Additional Instructions: Make sure you are increase your fluid intake and drinking small amounts of fluid over longer periods of time. Use the laxatives like we discussed. Call your OB doctor for a follow-up. Return to the emergency department for any new symptoms, worsening abdominal pain, inability to tolerate oral intake, or any other concerning symptoms. Prescriptions: No Action esomeprazole magnesium [Nexium] 40 MG capsule,delayed release(DR/EC) 40 mg PO QPM Qty: 0 RF: 0 ondansetron 8 mg tablet,disintegrating 8 mg PO Q8H PRN (Reason: Nausea) Qty: 30 RF: 0 PNV cmb#95-ferrous fumarate-FA [] 28 mg iron- 800 mcg Tablet 1 tab PO QPM RF: 0 nifedipine 30 mg Tablet Extended Release 24hr 30 mg PO DAILY Qty: 30 RF: 0 nifedipine 10 mg capsule See Label Instructions .ROUTE .COMPLEX Qty: 30 RF: 2
[2018-04-28 07:31] VITALS: BP 111/65; PULSE 122; RESP 20; TEMP 36.7; O2SAT 100; BMI 27.9
[2018-04-28 07:45] VITALS: BP 108/77; PULSE 105; RESP 16; O2SAT 99
[2018-04-28] MEDS: SODIUM CHLORIDE 0.9% 1,000 ML 1000 ML IV (07:54)
[2018-04-28] MEDS: diphenhydrAMINE 50 MG/ML VIAL 25 MG IV (07:54)
[2018-04-28] MEDS: ONDANSETRON 4 MG/2 ML INJ IV (07:54)
[2018-04-28 08:00] VITALS: BP 101/56; PULSE 85; RESP 18; O2SAT 100
[2018-04-28 08:03] LABS: Add Manual Diff / Slide Review NO; Basophils Percent Auto 0.2 % (0-2); Eosinophils Percent Auto 0.1 % (2-4); Hematocrit 36.2 % (36-46); Hemoglobin 12.1 g/dL (12.0-16.0); Lymphocytes Percent Auto 8.1 % (25-40); Mean Corpuscular HGB Conc 33.3 % (30-36); Mean Corpuscular Hemoglobin 28.7 PG (26-34); Mean Corpuscular Volume 86.2 fL (80-100); Monocytes Percent Auto 3.7 % (3-14); Neutrophils Absolute Auto 10400 /uL (3000-5900); Neutrophils Percent Auto 87.9 % (50-75); Platelet Count 285 X10^3/uL (150-400); Red Cell Distribution Width 12.8 % (11.6-14.8); White Blood Cell Count 11.8 X10^3/uL (4.5-11.0)
--- NOTE | 2018-04-28 08:04 | PC.NURSE ---
, 29 weeks , had nst yesterday and with left sided of abdominal pain, she was given morphine, and has been nausea and with vomiting since 7pm yesterday denies blood. denies vaginal dc. fetus remain active , fht 144 at this time. medicated for comfort. pt remain alert and awake, cooperative with care. skin warm dry pink.
[2018-04-28 08:09] LABS: Alanine Aminotransferase 22 IU/L (9-52); Albumin 4.1 g/dL (3.5-5.0); Albumin Globulin Ratio 1.2 (1.0-2.8); Alkaline Phosphatase 91 U/L (38-126); Aspartate Aminotransferase 24 IU/L (14-36); Bilirubin Total 0.5 mg/dL (0.2-1.3); Blood Urea Nitrogen 12 mg/dL (7-17); Calcium 9.2 mg/dL (8.4-10.2); Carbon Dioxide 25 mmol/L (22-32); Chloride 103 mmol/L (98-107); Estimated Glomerular Filt Rate > 60.0 mL/min (>60); Globulin 3.3 g/dL (1.7-4.1); Glucose 116 mg/dL (70-100); HEMOLYSIS 21 (0-50); Lipase 88 U/L (23-300); Potassium 4.2 mmol/L (3.4-5.1); Sodium 140 mmol/L (137-145); Total Protein 7.4 g/dL (6.3-8.2)
[2018-04-28 08:30] VITALS: BP 92/54; PULSE 74; RESP 16; O2SAT 100
--- NOTE | 2018-04-28 09:09 | PC.NURSE ---
states, no furthur nausea, reports, pain left side only when she moves, she understanding taking laxative for possible constipations. pt requesting to go home and rest.
== END 2018-04-28 09:43 | disposition home or self-care (01) ==
LOC: ED 09:41
PROVIDERS: Emergency Provider Emergency Medicine; Family Provider Family Medicine; PCP Specialist
DX: O21.9 Vomiting of pregnancy, unspecified (principal); O26.892 Other specified pregnancy related conditions, second trimester; R10.9 Unspecified abdominal pain; Z3A.29 29 weeks gestation of pregnancy
CPT/HCPCS: 36591; 80053; 81003; 83690; 85025; 96361; 96374; 96375; 99283; 99284; J1200; J2405

== ENCOUNTER → 2018-05-26 11:38 | Outpatient (CLI) | payer OTHER, MEDICAID, SELFPAY ==
[2018-01-10 19:23] VITALS: BMI 26.2
[2018-05-26 12:04] LABS: Appearance Urine UA CLEAR; Bilirubin Urine UA NEGATIVE (NEGATIVE); Color Urine UA YELLOW; Glucose Urine UA NEGATIVE (Normal); Ketones Urine UA 1+ (NEGATIVE); Leukocyte Esterase Urine UA NEGATIVE (NEGATIVE); Nitrite Urine UA NEGATIVE (Negative); Occult Blood Urine UA NEGATIVE (Negative); Protein Urine UA 1+ (Negative); Urobilinogen Urine UA 0.2 E.U./dL (0.2); pH Urine UA 6.5 (4.5-8.0)
== END | disposition home or self-care (01) ==
LOC: LABOR 11:50 → OB 05-27 09:52
PROVIDERS: Family Provider Family Medicine; PCP Specialist; Visit Provider Family Medicine
DX: Z34.83 Encounter for supervision of other normal pregnancy, third trimester (principal); Z3A.33 33 weeks gestation of pregnancy
CPT/HCPCS: 59025; 81003; G0378; G0379

== ENCOUNTER → 2018-06-14 14:41 | Outpatient (CLI) | payer OTHER, SELFPAY ==
[2018-01-10 19:23] VITALS: BMI 26.2
[2018-06-15 12:04] LABS: Strep Grp B PCR NEG for Grp B Strep
== END ==
PROVIDERS: Family Provider Family Medicine; PCP Specialist; Visit Provider Family Medicine
DX: Z34.83 Encounter for supervision of other normal pregnancy, third trimester (principal); Z3A.36 36 weeks gestation of pregnancy
CPT/HCPCS: 87653

== ENCOUNTER 2018-06-26 10:48 | Observation (INO) | payer OTHER, SELFPAY ==
[2018-01-10 19:23] VITALS: BMI 26.2
--- NOTE | 2018-06-26 10:57 | DI.US.S_ITS ---
PROCEDURE: US ABDOMEN COMPLETE INDICATIONS: RIGHT UPPER QUADRANT PAIN TECHNIQUE: Real-time scanning was performed of the abdominal and retroperitoneal organs, with image documentation. COMPARISON: [facility], US, US ABDOMEN COMPLETE, 01/10/2018, 14:08. FINDINGS: Liver: Liver is normal in size and homogeneous in echotexture. Gallbladder: There is no gallstone. No gallbladder wall thickening or pericholecystic fluid. No sonographic Carreon sign. Biliary ducts: Intrahepatic bile ducts are non-dilated. Extrahepatic bile duct caliber measures 4.6 mm. Normal is 6-7 mm or less in diameter, or 10 mm or less post-cholecystectomy. Pancreas: Visualized portions of the pancreas are sonographically normal. Spleen: Spleen is normal in size and homogeneous in echotexture. Kidneys: Kidneys are normal in size and echotexture. Right kidney measures 12.0 cm long; left kidney measures 10.8 cm long. Moderate to severe right-sided hydronephrosis is seen. Proximal ureter measures up to 2.1 cm in diameter. No obstructing renal stone is seen. No significant left. No solid masses. Aorta: Visualized aorta is normal in caliber at less than 3 cm. Iliacs: Proximal common iliac arteries are normal in caliber at less than 2.5 cm. IVC: Intrahepatic inferior vena cava is patent. Miscellaneous: No free abdominal fluid. IMPRESSION: 1. Moderate right-sided hydronephrosis and hydroureter. No gross renal stone is seen. No left-sided hydronephrosis. 2. Rest of exam is unremarkable. Dictated by: Bernabe Magaña M.D. on 06/26/2018 at 11:53 Approved by: Bernabe Magaña M.D. on 06/26/2018 at 11:55
[2018-06-26 11:34] LABS: Add Manual Diff / Slide Review NO; Basophils Percent Auto 0.3 % (0-2); Eosinophils Percent Auto 0.6 % (2-4); Hemoglobin 10.9 g/dL (12.0-16.0); Lymphocytes Percent Auto 16.2 % (25-40); Mean Corpuscular HGB Conc 33.1 % (30-36); Mean Corpuscular Volume 81.6 fL (80-100); Monocytes Percent Auto 6.3 % (3-14); Neutrophils Absolute Auto 8800 /uL (3000-5900); Neutrophils Percent Auto 76.6 % (50-75); Platelet Count 302 X10^3/uL (150-400); Red Blood Cell Count 4.04 X10^6/uL (4.0-5.2); Red Cell Distribution Width 14.6 % (11.6-14.8); White Blood Cell Count 11.4 X10^3/uL (4.5-11.0)
[2018-06-26 11:54] LABS: Amylase 83 U/L (30-110); Aspartate Aminotransferase 15 IU/L (14-36); Blood Urea Nitrogen 10 mg/dL (7-17); Estimated Glomerular Filt Rate > 60.0 mL/min (>60); Lipase 91 U/L (23-300); Uric Acid 4.5 mg/dL (2.5-6.2)
[2018-06-26 13:00] LABS: Protein (Total) Urine Random 12 mg/dL (0-12)
== END 2018-06-26 13:20 | disposition home or self-care (01) ==
PROVIDERS: Admitting Provider Obstetrics & Gynecology; Family Provider Family Medicine; PCP Specialist; Visit Provider Obstetrics & Gynecology
DX: Z34.83 Encounter for supervision of other normal pregnancy, third trimester (principal); Z3A.40 40 weeks gestation of pregnancy
CPT/HCPCS: 36415; 59025; 59050; 76700; 82150; 83690; 84156; 84450; 84550; 85025; G0378; G0379

== ENCOUNTER 2018-07-04 13:55 | Inpatient (IN) | payer OTHER, SELFPAY ==
[2018-01-10 19:23] VITALS: BMI 26.2
--- NOTE | 2018-07-04 14:42 | PM.HP.1 ---
History of Present Illness Date Patient Seen: 07/04/18 Time Patient Seen: 14:45 Chief complaint: Observation Narrative: 33-year-old female patient who is a G8 para 1 at 39 weeks gestational age. Estimated due date 07/11/2018 consistent with LMP. Ultrasound do dating showed a due date of 07/04/2018. Patient previously had a in 2012. Her other pregnancies have been less than 4 week miscarriages. She states that she is doing well. For the past 48 hr she has had increasing contractions. This afternoon's her contractions have become more painful. She with the bathroom and she had some mucousy bloody discharge. Her contractions are every 5-8 minutes moderate intensity and painful. She presented to labor and delivery floor. Her vital signs were stable blood pressure stable afebrile. Her heart tracing is category 1. Her was complicated by hernia surgery which was done at 14 weeks. She also had right-sided hydronephrosis throughout the which came and go which caused her some pain. She has a history of herpes simplex virus 2. With no current genital lesions. Her weight going during was approximately 30 lb. She had routine care and follow-up and a number of visits to the emergency room and labor and delivery because of hydronephrosis pain. She was also started and nifedipine due to some labor at 32 weeks. And stop these on Thursday. medications include vitamins Zofran Nexium and nifedipine. Patient has a history of migraine headaches irritable bowel syndrome kidney infections. Surgical history includes hernia surgery appendectomy right knee right shoulder and previous . Past Gynecological history. She has a history of abnormal Pap smears which she had crowds surgery for history of chlamydia. Social history she does not smoke does not drink and uses CBD products. Patient History Family & Social History Social History: household members spouse,children Tobacco & Substance use: Smoking Status Never smoker alcohol intake never alcohol intake frequency 0-2 drinks per day Substance Use Type marijuana Meds Home Medications Medication Instructions Recorded Confirmed Type esomeprazole magnesium [Nexium] 40 mg PO QPM #0 03/29/16 03/25/18 History PNV cmb#95-ferrous fumarate-FA 1 tab PO QPM 03/25/18 03/25/18 History [] breast pump #1 each 05/10/18 05/10/18 Rx nifedipine 10 mg capsule 10 mg PO .COMPLEX #30 cap 05/26/18 Rx nifedipine ER 30 mg 30 mg PO DAILY #30 tab 05/26/18 Rx tablet,extended release 24 hr ondansetron 8 mg disintegrating 8 mg PO Q8H PRN #30 tab 05/26/18 Rx tablet cyclobenzaprine 5 mg tablet 5 mg PO TID #20 tab 06/14/18 Rx Allergies Allergy/AdvReac Type Severity Reaction Status Date / Time amoxicillin Allergy Intermediate Vomiting Verified 04/28/18 07:31 aspirin Allergy Mild Watery Eye Verified 04/28/18 07:31 codeine Allergy Mild Vomiting Verified 04/28/18 07:31 phenazopyridine Allergy Mild Swelling Verified 04/28/18 07:31 [From Pyridium] of Lip/Tongue/Throat Exam Vital Signs (past 8 hours): General: Alert no apparent distress. Affect is appropriate. [place] it is uncomfortable. HEENT: Neck is supple without lymphadenopathy pupils equal round and reactive. Cardio: S1-S2 regular rate and rhythm. Respiratory: Lungs clear to auscultation. Abdomen: Gravid. Extremities: Normal deep tendon reflexes trace edema. [place]: [place] every 5-7 minutes 60 min contractions moderate in intensity heart tones: heart tones 135. Category 1 tracing Assessment & Plan Plan: Assessment/Plan Narrative: 33-year-old G8 para 1 at 39 weeks gestational age in labor. Previous history of . She is anticipating is and is on the schedule for tomorrow. Reviewed the procedure with her today discussed risks benefits and common complications of this procedure including bleeding infection injury to bladder or bowel. Consent was signed and obtained from the patient. These instructions were reviewed with patient and . lab work will be added in an obtain a CBC with platelet count type and screen rubella and blood type. She will be given antibiotics on-call to the operating Room cefotetan 2 g. IV will started SCDs were placed. Orders will be written for. Patient expresses a desire for tubal ligation which she had anticipated from early on in the .
[2018-07-04 15:08] LABS: Add Manual Diff / Slide Review NO; Basophils Percent Auto 0.7 % (0-2); Eosinophils Percent Auto 0.3 % (2-4); Hematocrit 31.7 % (36-46); Hemoglobin 10.7 g/dL (12.0-16.0); Lymphocytes Percent Auto 15.9 % (25-40); Mean Corpuscular HGB Conc 33.7 % (30-36); Mean Corpuscular Hemoglobin 27.1 PG (26-34); Mean Corpuscular Volume 80.3 fL (80-100); Monocytes Percent Auto 6.5 % (3-14); Neutrophils Absolute Auto 7400 /uL (1500-7000); Neutrophils Percent Auto 76.6 % (50-75); Platelet Count 333 X10^3/uL (150-400); Red Blood Cell Count 3.94 X10^6/uL (4.0-5.2); Red Cell Distribution Width 15.2 % (11.6-14.8); White Blood Cell Count 9.6 X10^3/uL (4.5-11.0)
[2018-07-04] MEDS: LACTATED RINGERS 1,000 ML 100 ML IV ×2 (15:16→16:08)
[2018-07-04] MEDS: CEFOTETAN 2 GM/50 ML PIGGYBACK IV (15:40)
--- NOTE | 2018-07-04 16:01 | SUR.OPER ---
Supine on Padded OR bed, head on pillow, safety belt at thigh, arms secured on padded arm boards at <90 degrees abduction. Bump under right buttock. Legs uncrossed with pillow under knees, gel pad to heels, tape over blanket to lower legs.
--- NOTE | 2018-07-04 16:26 | SUR.OPER ---
baby born [birth year]
[2018-07-04 16:27] VITALS: BP 112/63
[2018-07-04 16:40] VITALS: BP 99/33; PULSE 77; RESP 17; TEMP 37; O2SAT 97
[2018-07-04] MEDS: LACTATED RINGERS 1,000 ML 42 ML IV ×2 (16:40→16:41)
[2018-07-04 16:43] VITALS: BP 99/59; PULSE 73; RESP 16; O2SAT 97
--- NOTE | 2018-07-04 16:43 | P.OP_ITS ---
Procedure & Clinicians Procedure: Procedure: Lower segment transverse section with bilateral tubal ligation Consent: Verbal and written informed consent were obtained from the patient placed on the chart. Indications: 33-year-old 8 para 1 at 39 weeks gestational age in labor previous history of section. Findings: Normal uterus normal ovaries normal tubes Pathology: Segment of tube sent for pathology Findings: Normal male Apgars 8 and 9 Anesthesia: Spinal Surgeon: Dr. Levi Ortega Cylinder Filler: Dr. Nikita Baeza Estimated blood loss: 500 mL Drains: Lazcano to gravity. IV fluids: 1800 cc Description of procedure: The patient was brought to the operating room after her spinal epidural, preparation, and Lazcano had been performed. The abdomen was prepped and draped in tested for for analgesia. When it was found to be adequate, a lower abdominal Pfannenstiel incision was made with first with a knife and cared down to the fascia with a second knife. The fascia was incised in the midline and extended laterally with a knife. Bleeding points were clamped with hemostats and Bovie coagulated. The rectus muscles were by blunt dissection. The rectus muscles were divided in the midline and the peritoneum was grasped with hemostats and carefully entered with Lockett scissors. The incision was extended bilaterally. The bladder blade was then placed. The vesicoperitoneum was grasped with smooth pickups, entered with Metzenbaum scissors, and extended laterally. The bladder flap was created by gently blunt dissection and placed behind the bladder blade. The lower uterine segment was noted to be thin was carefully incised with the scalpel and extended laterally with the fingers. A live infant was found to be in the direct vertex position. The head was then easily elevated with the hand. The baby was then suctioned and cried immediately, and was handed to the waiting attendant. The placenta was delivered manually. The uterus was explored with a wet lap sponge and found to be clear membranes. The first layer of the uterine closure was with running locking #1 chromic catgut suture. The second layer with an imbricating #1 chromic catgut suture. Hemostasis was carefully checked and found to be satisfactory. The fallopian tubes and ovaries were inspected and to be found normal bilaterally. Attention was then taken to the left fallopian tube. The tube was then grasped with a Patterson. Was then tied with a chromic suture in a Frazee fashion An intervening segment was then removed. The ends of the tube were then cauterized. This procedure than was repeated on the right fallopian tube. Segment was sent for pathology. After sponge and needle counts were found to be correct the peritoneum was closed with 2-0 chromic catgut suture. Rectus muscles were approximated in the lower midline. The fascia was closed with a 2 running 0 Vicryl from lateral to midline. The subcutaneous tissue was approximated with interrupted 2.0 plain gut. Bleeding points were Bovie and coagulated. The subcutaneous tissue was approximated with 20 plain gut suture. The skin was closed with 1-0 running subcuticular stitch. Urinary output was adequate and normal patient left to the recovery room in good condition.
[2018-07-04 16:48] VITALS: BP 101/62; PULSE 65; RESP 15; O2SAT 97
[2018-07-04 16:53] VITALS: BP 109/62; PULSE 66; RESP 16; TEMP 36.9; O2SAT 99
--- NOTE | 2018-07-04 17:19 | SUR.PHASEI ---
iv fluids empty on arrival, 3rd bag hung. vss, stable pacu stay, fundus remained firm at u with minimal bloody drainage. no clots. to bc and left in stable condition. pt started with lorraine as leaving unit, patti nance placed on pt in bc room.
[2018-07-04] MEDS: OXYCODONE/ACETAMINOPHEN 5/325 TABLET 2 TAB PO (17:54)
[2018-07-04 19:30] VITALS: TEMP 37
[2018-07-04] MEDS: HYDROMORPHONE 1 MG INJ IV (19:30)
[2018-07-04 21:04] LABS: Rubella Antibody IgG 17.5 IU/mL (>15)
--- NOTE | 2018-07-04 21:11 | PATH_ITS ---
Patient Report Specimen ID: [id number] [address]: [address] Control ID: [id number] [facility] PATHOLOGY ONLY [address] [place] [address] ISAURA VORA [address] [facility] [address] Patient Details : 1985 Age(y/m/d): Gender: F SSN: Specimen Details Date collected: 07/04/20182110 Local Date received: 07/05/2018 Date entered: 07/05/2018 Date reported: 07/07/2018 1705 ET Physician Details Ordering: Hiwot Ortega Referring: ID: [id number] Additional Information: Clinical Info: [id number] Pathology Report Tests Ordered: Clinician Provided ICD Code(s) & Clinical History: Material Submitted: (01) BILATERAL FALLOPIAN TUBES Diagnosis: (02) Segments of Right and Left Fallopian Tubes (Sterilization Procedure): No significant pathologic change. MRV/07/07/2018 Pathologist Provided ICD Code(s): (02) Z30.2 CPT Codes: (02) 049363 Gross Description: (01) Received one formalin-filled container labeled with the patient's name and labeled fallopian tubes bilateral. The specimen consists of two clifford-kellogg partial cylindrical shaped portions of tissue. The first measures 0.4 cm in diameter x 0.5 cm in length. The specimen is inked blue, bisected and entirely submitted in cassette A1. The second piece measures 0.3 cm in diameter x 0.5 cm in length. Inked blue, bisected and entirely submitted in cassette A2. ([facility]:[id number]) /[facility] Comments: ACC: [id number] PID: [id number] Electronically signed by (02) Bryon Castorena MD, Pathologist NPI- [id number]
[2018-07-04] MEDS: HYDROMORPHONE PCA 6 MG/30 ML PCA.VIAL 5 MG IV (21:30)
[2018-07-05] MEDS: LACTATED RINGERS 1,000 ML 100 ML IV ×2 (01:00→10:15)
[2018-07-05] MEDS: ONDANSETRON 4 MG/2 ML INJ IV (01:37)
[2018-07-05] MEDS: KETOROLAC 30 MG/ML VIAL IV ×3 (01:38→13:48)
[2018-07-05] MEDS: HYDROMORPHONE PCA 6 MG/30 ML PCA.VIAL 5 MG IV (03:00)
[2018-07-05] MEDS: METOCLOPRAMIDE 10 MG/2 ML INJ IV ×2 (03:00→10:16)
--- NOTE | 2018-07-05 08:37 | PM.PN.1 ---
Subjective Date Patient Seen: 07/05/18 Time Patient Seen: 08:37 Interval history: Patient had a difficult time last night with nausea pain control. Did not receive Duramorph in her spinal. She was placed on a Dilaudid TRAVERSE ROD ASSEMBLER which helped. Has had some continued nausea though. She says this is not atypical for her. She does not tolerate pain medication very well. And does have difficulty with pain control and nausea. Still has Lazcano in SCDs on. Incision is clean and dry and intact. Vaginal bleeding as anticipated. Vital signs are stable afebrile. Exam Vital Signs (past 8 hours): Oxygen Delivery Method Room Air Narrative Exam Narrative: General: Alert no apparent distress. Affect is appropriate. [place] it is uncomfortable. HEENT: Neck is supple without lymphadenopathy pupils equal round and reactive. Cardio: S1-S2 regular rate and rhythm. Respiratory: Lungs clear to auscultation. Abdomen: Uterus firm. Incision clean dry and intact. Extremities: Normal deep tendon reflexes trace edema. Objective Labs Result Diagrams: 07/04/18 14:45 Labs: Laboratory Results - last 24 hr 07/04/18 07/04/18 07/04/18 14:45 14:45 18:45 WBC 9.6 RBC 3.94 L Hgb 10.7 L Hct 31.7 L MCV 80.3 MCH 27.1 MCHC 33.7 RDW 15.2 H Plt Count 333 Neut % (Auto) 76.6 H Lymph % (Auto) 15.9 L [place] % (Auto) 6.5 Eos % (Auto) 0.3 L Baso % (Auto) 0.7 Neut # (Auto) 7400 H Rubella Antibody 17.5 Blood Type A Positive Antibody Screen Negative Assessment & Plan Plan: Assessment/Plan Narrative: day 1. Status post with bilateral tubal ligation. It was repeat section. pain on a TRAVERSE ROD ASSEMBLER nausea on Zofran and Benadryl NPO Advance diet to clear liquids as tolerated Lazcano catheter DC today SCDs in place removed once ambulating Incision clean dry and intact Vaginal bleeding as normal Lower extremity no signs of asymmetrical swelling Disposition plan. Adjust oral pain medication today. TRAVERSE ROD ASSEMBLER remove Lazcano hemoglobin hematocrit stable. DC IV fluids Hep-Lock IV advanced diet.
--- NOTE | 2018-07-05 08:40 | P.PN_ITS ---
Subjective Date Patient Seen: 07/05/18 Time Patient Seen: 08:37 Interval history: Patient had a difficult time last night with nausea pain control. Did not receive Duramorph in her spinal. She was placed on a Dilaudid DYEING MACHINE TENDER which helped. Has had some continued nausea though. She says this is not atypical for her. She does not tolerate pain medication very well. And does have difficulty with pain control and nausea. Still has Lazcano in SCDs on. Incision is clean and dry and intact. Vaginal bleeding as anticipated. Vital signs are stable afebrile. Exam Vital Signs (past 8 hours): Oxygen Delivery Method Room Air Narrative Exam Narrative: General: Alert no apparent distress. Affect is appropriate. [place] it is uncomfortable. HEENT: Neck is supple without lymphadenopathy pupils equal round and reactive. Cardio: S1-S2 regular rate and rhythm. Respiratory: Lungs clear to auscultation. Abdomen: Uterus firm. Incision clean dry and intact. Extremities: Normal deep tendon reflexes trace edema. Objective Labs Result Diagrams: 07/04/18 14:45 Labs: Laboratory Results - last 24 hr 07/04/18 07/04/18 07/04/18 14:45 14:45 18:45 WBC 9.6 RBC 3.94 L Hgb 10.7 L Hct 31.7 L MCV 80.3 MCH 27.1 MCHC 33.7 RDW 15.2 H Plt Count 333 Neut % (Auto) 76.6 H Lymph % (Auto) 15.9 L [place] % (Auto) 6.5 Eos % (Auto) 0.3 L Baso % (Auto) 0.7 Neut # (Auto) 7400 H [place] Antibody 17.5 Blood Type A Positive Antibody Screen Negative Assessment & Plan Plan: Assessment/Plan Narrative: day 1. Status post with bilateral tubal ligation. It was repeat section. pain on a DYEING MACHINE TENDER nausea on Zofran and Benadryl NPO Advance diet to clear liquids as tolerated Lazcano catheter DC today SCDs in place removed once ambulating Incision clean dry and intact Vaginal bleeding as normal Lower extremity no signs of asymmetrical swelling Disposition plan. Adjust oral pain medication today. DYEING MACHINE TENDER remove Lazcano hemoglobin hematocrit stable. DC IV fluids Hep-Lock IV advanced diet.
[2018-07-05] MEDS: SCOPOLAMINE 1 PATCH TOP (08:57)
[2018-07-05] MEDS: OXYCODONE IR 5 MG TABLET 10 MG PO ×5 (11:07→23:03)
[2018-07-05] MEDS: diphenhydrAMINE 50 MG/ML VIAL IV (11:41)
[2018-07-05] MEDS: DOCUSATE 250 MG CAPSULE PO (13:47)
[2018-07-05] MEDS: PRENATAL VIT,CALC/IRON/FOLIC 1 TABLET 1 TAB PO (13:47)
[2018-07-05] MEDS: IBUPROFEN 600 MG TABLET PO (19:17)
[2018-07-06] MEDS: IBUPROFEN 600 MG TABLET PO ×2 (02:10→08:09)
[2018-07-06] MEDS: OXYCODONE IR 5 MG TABLET 10 MG PO ×5 (02:10→14:03)
[2018-07-06 06:53] LABS: Add Manual Diff / Slide Review NO; Basophils Percent Auto 0.4 % (0-2); Eosinophils Percent Auto 1.4 % (2-4); Hematocrit 32.2 % (36-46); Hemoglobin 10.3 g/dL (12.0-16.0); Lymphocytes Percent Auto 19.5 % (25-40); Mean Corpuscular Hemoglobin 26.2 PG (26-34); Mean Corpuscular Volume 81.9 fL (80-100); Monocytes Percent Auto 8.1 % (3-14); Neutrophils Absolute Auto 7400 /uL (1500-7000); Neutrophils Percent Auto 70.6 % (50-75); Platelet Count 289 X10^3/uL (150-400); Red Blood Cell Count 3.94 X10^6/uL (4.0-5.2); Red Cell Distribution Width 15.3 % (11.6-14.8); White Blood Cell Count 10.5 X10^3/uL (4.5-11.0)
[2018-07-06] MEDS: DOCUSATE 250 MG CAPSULE PO (08:10)
[2018-07-06] MEDS: PRENATAL VIT,CALC/IRON/FOLIC 1 TABLET 1 TAB PO (08:10)
--- NOTE | 2018-07-06 08:16 | PM.DS.1 ---
History of Present Illness Chief complaint: LABOR & DELIVERY Narrative: 33-year-old female patient who is a G8 para 1 at 39 weeks gestational age. Estimated due date 07/11/2018 consistent with LMP. Ultrasound do dating showed a due date of 07/04/2018. Patient previously had a in 2012. Her other pregnancies have been less than 4 week miscarriages. She states that she is doing well. For the past 48 hr she has had increasing contractions. This afternoon's her contractions have become more painful. She with the bathroom and she had some mucousy bloody discharge. Her contractions are every 5-8 minutes moderate intensity and painful. She presented to labor and delivery floor. Her vital signs were stable blood pressure stable afebrile. Her heart tracing is category 1. Her was complicated by hernia surgery which was done at 14 weeks. She also had right-sided hydronephrosis throughout the which came and go which caused her some pain. She has a history of herpes simplex virus 2. With no current genital lesions. Her weight going during was approximately 30 lb. She had routine care and follow-up and a number of visits to the emergency room and labor and delivery because of hydronephrosis pain. She was also started and nifedipine due to some labor at 32 weeks. And stop these on Thursday. medications include vitamins Zofran Nexium and nifedipine. Patient has a history of migraine headaches irritable bowel syndrome kidney infections. Surgical history includes hernia surgery appendectomy right knee right shoulder and previous . Past Gynecological history. She has a history of abnormal Pap smears which she had crowds surgery for history of chlamydia. Social history she does not smoke does not drink and uses CBD products. Discharge Providers Date of admission: 07/04/18 13:55 Primary care physician: Estelita Travis MD Consults: 07/04/18 17:01 Consult to Cell Tender Helper Routine Comment: Discharge provider: Levi Ortega MD Discharge Date: 07/06/18 Summary Discharge Diagnosis: Term Repeat section Bilateral tubal ligation Routine post care Hospital Course: Patient presented to the labor and delivery floor in labor. Previous please see H&P note for details. Patient had a . She had routine post care with a INDIGO VAT TENDER CLOTH for pain control. She had some mild nausea which was improved with the scopolamine patch. On postop day 1 Lazcano IV were removed patient was ambulating and tolerating general diet. Postoperative day 2. Breast-feeding was going well pain was well controlled vaginal bleeding was controlled hemoglobin hematocrit was stable and vital signs are stable. Exam Vital Signs (past 8 hours): Oxygen Delivery Method Room Air Narrative Exam Narrative: General: Alert no apparent distress. Affect is appropriate. [place] it is uncomfortable. HEENT: Neck is supple without lymphadenopathy pupils equal round and reactive. Cardio: S1-S2 regular rate and rhythm. Respiratory: Lungs clear to auscultation. Abdomen: Uterus firm. Incision clean dry and intact. Extremities: Normal deep tendon reflexes trace edema. Objective Labs Result Diagrams: 07/06/18 06:42 Labs: Laboratory Results - last 24 hr 07/06/18 06:42 WBC 10.5 RBC 3.94 L Hgb 10.3 L Hct 32.2 L MCV 81.9 MCH 26.2 MCHC 32.0 RDW 15.3 H Plt Count 289 Neut % (Auto) 70.6 Lymph % (Auto) 19.5 L [place] % (Auto) 8.1 Eos % (Auto) 1.4 L Baso % (Auto) 0.4 Neut # (Auto) 7400 H Discharge Plan Discharge Plan Patient Disposition: Home Discharge comment: Home follow-up in 7-[address] Ortega for incision check Discharge Med Rec/Prescriptions Prescriptions: New oxycodone-acetaminophen [Percocet] 5-325 mg tablet 2 tab PO Q4-6H PRN (Reason: pain) Qty: 30 RF: 0 docusate sodium [Colace] 100 mg capsule 100 mg PO BID Qty: 20 RF: 0 ibuprofen 600 mg tablet 600 mg PO TID Qty: 30 RF: 0 Continue ondansetron 8 mg tablet,disintegrating 8 mg PO Q8H PRN (Reason: Nausea) Qty: 30 RF: 1 PNV cmb#95-ferrous fumarate-FA [] 28 mg iron- 800 mcg Tablet 1 tab PO QPM RF: 0 Discontinued esomeprazole magnesium [Nexium] 40 MG capsule,delayed release(DR/EC) 40 mg PO QPM Qty: 0 RF: 0 nifedipine 30 mg tablet extended release 24hr 30 mg PO DAILY Qty: 30 RF: 1 nifedipine 10 mg capsule 10 mg PO .COMPLEX Qty: 30 RF: 1 cyclobenzaprine 5 mg tablet 5 mg PO TID Qty: 20 RF: 0 No Action breast pump device .ROUTE .MEDSUPPLY Qty: 1 RF: 0 Provider Discharge Instructions Diet: Diet as Tolerated Activity: as tolerated Skin/Wound/Dressing Care Report to your healthcare provider any signs of infection, such as:: chills, fever, night sweats, increased pain, unusual drainage and unusual redness Discharge Data Primary Care Provider: Estelita Travis Attending Provider: Levi Ortega Admit Date/Time: 07/04/18 13:55
[2018-07-06 09:40] VITALS: BP 117/64; PULSE 65; RESP 16; TEMP 37.2
[2018-07-06] MEDS: ONDANSETRON 4 MG ODT 8 MG PO (13:28)
== END 2018-07-06 17:10 | disposition home or self-care (01) | DRG 785 ==
PROVIDERS: Admitting Provider Family Medicine; Family Provider Family Medicine; PCP Specialist; Visit Provider Family Medicine
PROC: 10D00Z1 Extraction of Products of Conception, Low, Open Approach (ICD-10-PCS; CPT 59514; principal; 2018-07-04 14:55)
DX: O34.219 Maternal care for unspecified type scar from previous cesarean delivery (principal); Z3A.39 39 weeks gestation of pregnancy; Z37.0 Single live birth; Z30.2 Encounter for sterilization; R11.0 Nausea
CPT/HCPCS: 36415; 58611; 59050; 59514; 59515; 85025; 86762; 86850; 86900; 86901; 88302; G0379; J1170; J1200; J1885; J2405; J2590; J2704; J2765; J3010

== ENCOUNTER 2019-03-04 08:11 | Emergency (ER) | payer OTHER, SELFPAY ==
[2018-01-10 19:23] VITALS: BMI 26.2
[2019-03-04 08:30] VITALS: BP 120/75; PULSE 65; O2SAT 99
[2019-03-04 08:31] VITALS: BP 115/68; PULSE 83; RESP 12; TEMP 36.6; O2SAT 100; BMI 26.4
--- NOTE | 2019-03-04 08:34 | ED_ITS ---
HPI - Abdominal Pain General Chief Complaint: Abdominal Pain Stated Complaint: upper abdominal pain Time Seen by Provider: 03/04/19 08:11 Source: patient Mode of arrival: ambulatory Limitations: no limitations History of Present Illness HPI narrative: Patient is a 33-year-old female here for evaluation of right uppe r quadrant abdominal pain. Patient is approximately 8 months . Had a for history of genital herpes and a repeat . She is . States that approximately 5 days ago had a gradual onset of right upper quadrant abdominal pain that has been radiating down her right side and around to her right flank. Has had nausea and dry heaving. Has had some diarrhea but this is not new for her. No urinary symptoms. She states that eating does make her symptoms worse. Her symptoms are worse with palpation. Also hurt with breathing. She also states that it hurts when she flexes her abdominal muscles to either have a bowel movement or urinate. Has had her appendix out. Still has her gallbladder. No history of kidney stones. Related Data Home Medications Medication Instructions Recorded Confirmed omeprazole 20 mg PO BID 03/04/19 Previous Rx's Medication Instructions Recorded ondansetron 4 mg PO Q6H PRN #10 tab 03/04/19 tramadol [Ultram] 50 mg PO TID PRN #10 tab 03/04/19 Allergies Allergy/AdvReac Type Severity Reaction Status Date / Time amoxicillin Allergy Intermediate Vomiting Verified 03/04/19 08:33 aspirin Allergy Mild Watery Eye Verified 03/04/19 08:33 codeine Allergy Mild Vomiting Verified 03/04/19 08:33 phenazopyridine Allergy Mild Swelling Verified 03/04/19 08:33 [From Pyridium] of Lip/Tongue/Throat Review of Systems Constitutional Denies fever(s) and Denies headache(s) ENT Ears, Nose, Mouth, and Throat: Denies headache(s) Cardiovascular Denies chest pain and Denies dyspnea Respiratory Denies dyspnea Gastrointestinal Gastrointestinal: Reports abdominal pain, Denies change in stool character, Reports diarrhea, Reports nausea and Reports vomiting Genitourinary Denies dysuria, Denies pelvic pain, Reports flank pain (Right-sided), Denies urinary incontinence, Denies urinary hesitancy, Denies urinary urgency and Denies vaginal discharge Musculoskeletal Denies myalgias and Denies arthralgias Integumentary/Breasts Denies lesions and Denies rash Neurologic Denies behavioral changes, Denies confusion and Denies headache(s) Psychiatric Denies behavioral changes and Denies confusion Hematologic/Lymphatic Denies easy bleeding and Denies easy bruising PFSH Medical History History of multiple miscarriages (Acute) Endometriosis (Chronic) IBD (inflammatory bowel disease) (Chronic) PCOS (polycystic ovarian syndrome) (Chronic) Surgical History H/O section (Resolved) H/O laparoscopy (Resolved) H/O tubal ligation (Resolved) History of (Resolved) History of orthopedic surgery (Resolved) S/P appy (Resolved) Social History household members: spouse and children Smoking Status: Never smoker alcohol intake: never substance use type: marijuana Social History household members: spouse and children Smoking Status: Never smoker alcohol intake: never substance use type: marijuana Exam Initial Vital Signs Initial Vital Signs: Vital Signs Pulse Rate 65 03/04/19 08:30 Blood Pressure 120/75 03/04/19 08:30 Pulse Oximetry 99 03/04/19 08:30 Const General: cooperative, comfortable, well developed and well groomed Orientation: alert, awake and oriented x3 HENMT Head: normal to inspection and normocephalic Resp Effort & Inspection: normal respiratory effort Auscultation: clear to auscultation bilaterally Cardio Rate: regular rate Rhythm: regular rhythm GI Inspection: non-distended Palpation: soft, No firm and tender (Right upper quadrant positive Carreon sign) Back/Spine/Pelvis Back: CVA tenderness right Skin Lesions: no lesions Rashes: no rashes Neuro General: alert and awake Cognition: normal cognition Speech: speech normal Extrem General: normal to inspection and capillary refill normal Psych Appearance: grossly normal and well kempt Scores GCS [place] coma scale eye opening: Spontaneous [place] coma scale verbal response: Orientated [place] coma scale motor response: Obey commands [place] coma scale total score: 15 Course Orders Ordered: ED Orders 03/04/19 08:35 US abdomen limited Stat 03/04/19 08:47 Complete Blood Count AUTO DIFF Stat Comprehensive Metabolic Panel Stat Lipase Stat 03/04/19 08:49 EKG-12 Lead Stat Discontinued Medications Hydromorphone HCl (Dilaudid) 0.5 mg IV NOW ONE Stop: 03/04/19 08:35 Last Admin: 03/04/19 08:59 Dose: 0.5 mg Ondansetron HCl (Zofran) 4 mg IV NOW ONE Stop: 03/04/19 08:35 Last Admin: 03/04/19 08:59 Dose: 4 mg Vital Signs - 8 hr 03/04/19 08:30 03/04/19 08:31 Temperature 97.8 F Pulse Rate 65 83 Respiratory Rate 12 Blood Pressure 115/68 Blood Pressure [Right Arm] 120/75 Pulse Oximetry 99 100 MDM - Abdominal Pain Lab Data Attestation: I reviewed the patient's lab results. Result diagrams: 03/04/19 08:47 03/04/19 08:47 Lab Results 03/04/19 03/04/19 Range/Units 08:47 08:47 WBC 5.5 (4.5-11.0) X10^3/uL RBC 4.67 (4.0-5.2) X10^6/uL Hgb 13.2 (12.0-16.0) g/dL Hct 39.7 (36-46) % MCV 85.1 (80-100) fL MCH 28.2 (26-34) PG MCHC 33.1 (30-36) % RDW 13.9 (11.6-14.8) % Plt Count 228 (150-400) X10^3/uL Neut % (Auto) 65.6 (50-75) % Lymph % (Auto) 25.1 (25-40) % [place] % (Auto) 7.3 (3-14) % Eos % (Auto) 1.6 L (2-4) % Baso % (Auto) 0.4 (0-2) % Neut # (Auto) 3600 (8446-0127) /uL Lymph # (Auto) 1400 (0604-2118) /uL [place] # (Auto) 400 (0-900) /uL Eos # (Auto) 100 (0-450) /uL Baso # (Auto) 0 (0-100) /uL Sodium 140 (137-145) mmol/L Potassium 3.9 (3.4-5.1) mmol/L Chloride 106 (98-107) mmol/L Carbon Dioxide 25 (22-32) mmol/L BUN 14 (7-17) mg/dL Creatinine 0.60 (0.52-1.04) mg/dL Estimated GFR > 60.0 (>60) mL/min BUN/Creatinine Ratio 23.3 H (6-22) Glucose 93 (70-100) mg/dL Calcium 8.9 (8.4-10.2) mg/dL Total Bilirubin 0.4 (0.2-1.3) mg/dL AST 19 (14-36) IU/L ALT 17 (9-52) IU/L Alkaline Phosphatase 94 (38-126) U/L Total Protein 7.5 (6.3-8.2) g/dL Albumin 4.3 (3.5-5.0) g/dL Globulin 3.2 (1.7-4.1) g/dL Albumin/Globulin Ratio 1.3 (1.0-2.8) Lipase 79 (23-300) U/L Point of care testing: Point of Care Testing Test Results Negative Urine Dip Bedside Urine Glucose Negative Bedside Urine Bilirubin - Negative Bedside Urine Ketone - Negative Urine Specific [place] 1.030 Bedside Urine Occult Blood - Negative Bedside Urine pH 5.5 Bedside Urine Protein - Negative Bedside Urine Urobilinogen - Negative Bedside Urine Nitrite - Negative Bedside Urine Leukocytes - Negative Esterase Imaging Data US - abdomen: Radiologist's impression: [address] [address] Ultrasound Report Signed Patient: Sepideh Scott LMR#: [id number] : 1985Acct:[id number] Age/Sex: 33 / FDate of Service: 03/04/19 Loc: ED Accession Number: [id number] Procedure: US abdomen limited Ordering Provider: Ronal Mayfield D.O. PROCEDURE: US ABDOMEN LIMITED INDICATIONS: RUQ pain eval for GB pathology TECHNIQUE: Real-time focused scanning was performed of the abdomen, with image documentation. COMPARISON: [facility], , US ABDOMEN COMPLETE, 06/26/2018, 11:29. FINDINGS: No findings of gallstones or sludge are seen. The gallbladder wall is not thickened, measuring 3 mm or less. No specific pericholecystic fluid is seen. The sonographic Carreon sign is negative. There is no biliary dilatation, the common bile duct measures 4 mm. The visualized liver and pancreas are unremarkable. IMPRESSION: The gallbladder demonstrates a normal sonographic appearance. No biliary dilatation is seen. Dictated by: Prosper Kemp M.D. on 03/04/2019 at 8:22 Approved by: Prosper Kemp M.D. on 03/04/2019 at 8:22 [facility] Narrative Medical decision making narrative: Patient with a relatively benign abdominal exam. The right upper quadrant ultrasound shows no signs of acute cholecystitis. The labs also do not suggest this. Her urine is negative. I have low suspicion for kidney stone. Her physical exam also does not support this. She has had her appendix removed. She has had diarrhea which is not necessarily new for her. She does have a working diagnosis of IBS which could be be causing her symptoms. Will hold on further workup for now. Patient does understand the lack of a definitive diagnosis of her symptoms. Will send home with symptom treatment. Patient was given return precautions and follow-up instructions. She expressed understanding and agreement with plan. Discharge Plan Departure Patient Disposition: Home Clinical Impression: Abdominal pain Qualifiers: Abdominal location: right upper quadrant Qualified Code(s): R10.11 - Right upper quadrant pain Instructions: DI for Abdominal Pain-Adult Activity Restrictions/Additional Instructions: I recommend that you contact your primary provider for a follow-up. Take the medications as needed. Return to the emergency department for any new or worsening symptoms Prescriptions: New tramadol [Ultram] 50 mg tablet 50 mg PO TID PRN (Reason: pain) Qty: 10 RF: 0 ondansetron 4 mg tablet,disintegrating 4 mg PO Q6H PRN (Reason: nausea and vomiting) Qty: 10 RF: 0 No Action omeprazole 20 mg capsule,delayed release(DR/EC) 20 mg PO BID RF: 0
[2019-03-04 08:53] LABS: Add Manual Diff / Slide Review NO; Basophils Absolute Auto 0 /uL (0-100); Basophils Percent Auto 0.4 % (0-2); Eosinophils Absolute Auto 100 /uL (0-450); Eosinophils Percent Auto 1.6 % (2-4); Hematocrit 39.7 % (36-46); Hemoglobin 13.2 g/dL (12.0-16.0); Lymphocytes Absolute Auto 1400 /uL (1100-4500); Lymphocytes Percent Auto 25.1 % (25-40); Mean Corpuscular HGB Conc 33.1 % (30-36); Mean Corpuscular Hemoglobin 28.2 PG (26-34); Mean Corpuscular Volume 85.1 fL (80-100); Monocytes Absolute Auto 400 /uL (0-900); Monocytes Percent Auto 7.3 % (3-14); Neutrophils Absolute Auto 3600 /uL (1500-7000); Neutrophils Percent Auto 65.6 % (50-75); Platelet Count 228 X10^3/uL (150-400); Red Blood Cell Count 4.67 X10^6/uL (4.0-5.2); Red Cell Distribution Width 13.9 % (11.6-14.8); White Blood Cell Count 5.5 X10^3/uL (4.5-11.0)
[2019-03-04] MEDS: HYDROMORPHONE 0.5 MG INJ IV (08:59)
[2019-03-04] MEDS: ONDANSETRON 4 MG/2 ML INJ IV (08:59)
[2019-03-04 09:06] LABS: Alanine Aminotransferase 17 IU/L (9-52); Albumin 4.3 g/dL (3.5-5.0); Albumin Globulin Ratio 1.3 (1.0-2.8); Alkaline Phosphatase 94 U/L (38-126); Aspartate Aminotransferase 19 IU/L (14-36); BUN Creatinine Ratio 23.3 (6-22); Bilirubin Total 0.4 mg/dL (0.2-1.3); Blood Urea Nitrogen 14 mg/dL (7-17); Calcium 8.9 mg/dL (8.4-10.2); Carbon Dioxide 25 mmol/L (22-32); Chloride 106 mmol/L (98-107); Estimated Glomerular Filt Rate > 60.0 mL/min (>60); Globulin 3.2 g/dL (1.7-4.1); Glucose 93 mg/dL (70-100); HEMOLYSIS < 15 (0-50); Lipase 79 U/L (23-300); Potassium 3.9 mmol/L (3.4-5.1); Sodium 140 mmol/L (137-145); Total Protein 7.5 g/dL (6.3-8.2)
[2019-03-04 10:20] VITALS: BP 110/66; PULSE 72; RESP 20; O2SAT 98
== END 2019-03-04 10:20 | disposition home or self-care (01) ==
PROVIDERS: Emergency Provider Emergency Medicine
DX: R10.11 Right upper quadrant pain (principal)
CPT/HCPCS: 36591; 76705; 80053; 81003; 81025; 83690; 85025; 96374; 96375; 99283; 99284; J1170; J2405

== ENCOUNTER 2019-03-05 17:55 | Emergency (ER) | payer OTHER, SELFPAY ==
[2018-01-10 19:23] VITALS: BMI 26.2
[2019-03-05 18:09] VITALS: BP 119/71; PULSE 84; RESP 18; TEMP 36.6; O2SAT 98
--- NOTE | 2019-03-05 18:21 | ED.ABDPAIN ---
HPI - Abdominal Pain <Zack JO ANN Olsen - Last Filed: 03/05/19 21:02> General Chief Complaint: Abdominal Pain Stated Complaint: abdominal pain Time Seen by Provider: 03/05/19 18:00 Source: patient Mode of arrival: ambulatory Limitations: no limitations History of Present Illness HPI narrative: This is a 33-year-old female, nonsmoker, who presents with diffused abdominal pain with nausea and vomiting x8 during last 24. She has also loose stools which is not uncommon for her with history of IBS. Denies blood in stool or emesis. She denies fever, chills. She was seen here yesterday and evaluated with abdominal pain and returned today reporting her pain has now migrated from right upper quadrant to right lower abdomen and radiating to her bilateral back. She started having mild urination with burning which started yesterday. Patient reports a movements, putting pressure on her abdomen increases pain. She states nothing really helps with her pain. She was evaluated with ultrasound test, blood test, and urine test yesterday with unremarkable findings with benign physical exam. She reports has taken Stoughton had 4:00 p.m. prior coming into ED. Patient has history of endometriosis, PCOS, has history of bilateral tubal ligation. Patient reports her endometriosis symptoms are different from this abdominal pain. She denies unusual vaginal discharge or vaginal bleeding. Her last LMP was 02/17/19. Related Data Home Medications Medication Instructions Recorded Confirmed PNV cmb#95-ferrous fumarate-FA 1 tab PO DAILY 03/04/19 03/04/19 [] omeprazole 20 mg PO BID PRN 03/04/19 03/04/19 Previous Rx's Medication Instructions Recorded hydrocodone-acetaminophen [Stoughton] 1 tab PO Q4-6H PRN #7 tab 03/04/19 ondansetron 4 mg PO Q6H PRN #10 tab 03/04/19 tramadol [Ultram] 50 mg PO TID PRN #10 tab 03/04/19 Allergies Allergy/AdvReac Type Severity Reaction Status Date / Time amoxicillin Allergy Intermediate Vomiting Verified 03/05/19 18:13 aspirin Allergy Mild Watery Eye Verified 03/05/19 18:13 codeine Allergy Mild Vomiting Verified 03/05/19 18:13 phenazopyridine Allergy Mild Swelling Verified 03/05/19 18:13 [From Pyridium] of Lip/Tongue/Throat tramadol AdvReac Vomiting Verified 03/05/19 18:13 Review of Systems <JO ANN Ballesteros - Last Filed: 03/05/19 21:02> Review of Systems General: Denies fever, chills, fatigue, malaise, sweats. HEENT: Denies sinus pain, ear pain, sore throat, difficulty swallowing, dizziness. Respiratory: Denies dyspnea, cough, wheezing, hemoptysis, sputum. Cardiovascular: Denies chest pain, palpitations, orthopnea, edema. Gastrointestinal: See HPI : Reports burning with urination. Denies dysuria, frequency, incontinence, hematuria, urinary retention. Musculoskeletal: Denies weakness, joint pain or bony pain. Skin: Denies rash, skin lesions, or other. Neurologic: Denies weakness, headache, numbness, change in speech, confusion, seizures, incoordination. Psychiatric: No concerning psychosocial issues. 12-point review of systems is negative except for those stated above. PFSH <JO ANN Ballesteros - Last Filed: 03/05/19 21:02> Medical History History of multiple miscarriages (Acute) Endometriosis (Chronic) IBD (inflammatory bowel disease) (Chronic) PCOS (polycystic ovarian syndrome) (Chronic) Surgical History H/O section (Resolved) H/O laparoscopy (Resolved) H/O tubal ligation (Resolved) History of (Resolved) History of orthopedic surgery (Resolved) S/P appy (Resolved) Social History household members: spouse and children Smoking Status: Never smoker alcohol intake: never substance use type: marijuana Social History household members: spouse and children Smoking Status: Never smoker alcohol intake: never substance use type: marijuana Exam <JO ANN Ballesteros - Last Filed: 03/05/19 21:02> Narrative Exam Narrative: GEN: Alert, oriented x 3, well appearing and nourished, and in no acute distress. Head: Normal cephalic, atraumatic. No scalp or temporal tenderness, palpable mass or rash. EYES: Pupils are equal, round, and reactive to light and accommodation. Extraocular muscles are intact bilaterally. There is no subconjunctival hemorrhage, exudate and sclera non-icteric. ENT: Nose without bleeding, purulent discharge. Mucous membrane moist, no mucosal lesion. Throat without erythema, tonsillar hypertrophy or exudate. Uvula in midline, airway patent. Neck: Trachea in midline. No JVD, non-tender without lymphadenopathy. No masses or thyroid megaly. Supple, non-tender and no meningeal signs. CARDIAC: Normal regular rate and rhythm without murmurs, gallops, or rubs. No chest wall tenderness. No peripheral edema, cyanosis or pallor. Capillary refill is less than 2 seconds. RESPIRATORY: Lungs are cleat to auscultate bilaterally. No cough, wheezes, rales, or rhonchi. No stridor, respiratory distress, increase work of breathing, or accessary muscle used. ABD: Abdomen soft, tender to palpate in RLQ, LUQ, LLQ and non-distended. No guarding or rebound tenderness to palpate. Bowel sounds are normal in all 4 quadrants. There is no palpable masses or organomegaly. Bilateral suprapubis area is not tender to palpate and soft. EXT: Full painless ROM of all extremities with no loss of sensation, strength, effusion or edema. SKIN: Warm, dry, normal color for patient. No erythema, lesions or rash over visible areas. BACK: Nontender without deformity or crepitance. Bilateral flank pain to percuss and with deep palpation. NEUROLOGICAL: Alert and oriented to place, time and person. Sensation and motor function intact bilaterally. No facial droops, dysphasia. PSYCHIATRIC: Good judgement and reason, without hallucinations, abnormal affect or abnormal behaviors during the examination. Patient is not suicidal. Initial Vital Signs Initial Vital Signs: Vital Signs Temperature 97.9 F 03/05/19 18:09 Pulse Rate 84 03/05/19 18:09 Respiratory Rate 18 03/05/19 18:09 Blood Pressure 119/71 03/05/19 18:09 Pulse Oximetry 98 03/05/19 18:09 <Ronal Mayfield DO - Last Filed: 03/08/19 23:56> Initial Vital Signs Initial Vital Signs: Vital Signs Temperature 97.9 F 03/05/19 18:09 Pulse Rate 84 03/05/19 18:09 Respiratory Rate 18 03/05/19 18:09 Blood Pressure 119/71 03/05/19 18:09 Pulse Oximetry 98 03/05/19 18:09 Scores <JO ANN Ballesteros - Last Filed: 03/05/19 21:02> GCS Nelida coma scale eye opening: Spontaneous Nelida coma scale verbal response: Orientated [place] coma scale motor response: Obey commands Nelida coma scale total score: 15 Course <JO ANN Ballesteros - Last Filed: 03/05/19 21:02> Orders Ordered: Discontinued Medications Dicyclomine HCl (Bentyl) 20 mg PO NOW ONE Stop: 03/05/19 19:32 Last Admin: 03/05/19 20:14 Dose: 20 mg Sodium Chloride (Normal Saline 0.9%) 1,000 mls @ 1,000 mls/hr IV BOLUS ONE Stop: 03/05/19 19:17 Last Infusion: 03/05/19 20:17 Dose: 0 mls/hr Admin: 03/05/19 18:53 Dose: 1,000 mls/hr Ketorolac Tromethamine (Toradol) 30 mg IV NOW ONE Stop: 03/05/19 20:33 Last Admin: 03/05/19 20:41 Dose: 30 mg Ondansetron HCl (Zofran) 4 mg IV NOW ONE Stop: 03/05/19 18:19 Last Admin: 03/05/19 18:53 Dose: 4 mg Pantoprazole Sodium (Protonix) 40 mg IV NOW ONE Stop: 03/05/19 18:19 Last Admin: 03/05/19 18:53 Dose: 40 mg Vital Signs - 8 hr 03/05/19 18:09 03/05/19 20:00 03/05/19 20:30 Temperature 97.9 F Pulse Rate 84 78 Respiratory Rate 18 Blood Pressure 119/71 Blood Pressure [Left Arm] 103/56 L 121/77 Pulse Oximetry 98 98 03/05/19 21:00 Temperature Pulse Rate 76 Respiratory Rate 16 Blood Pressure 121/71 Blood Pressure [Left Arm] Pulse Oximetry 100 <Ronal Mayfield DO - Last Filed: 03/08/19 23:56> Orders Ordered: Discontinued Medications Dicyclomine HCl (Bentyl) 20 mg PO NOW ONE Stop: 03/05/19 19:32 Last Admin: 03/05/19 20:14 Dose: 20 mg Sodium Chloride (Normal Saline 0.9%) 1,000 mls @ 1,000 mls/hr IV BOLUS ONE Stop: 03/05/19 19:17 Last Infusion: 03/05/19 20:17 Dose: 0 mls/hr Admin: 03/05/19 18:53 Dose: 1,000 mls/hr Ketorolac Tromethamine (Toradol) 30 mg IV NOW ONE Stop: 03/05/19 20:33 Last Admin: 03/05/19 20:41 Dose: 30 mg Ondansetron HCl (Zofran) 4 mg IV NOW ONE Stop: 03/05/19 18:19 Last Admin: 03/05/19 18:53 Dose: 4 mg Pantoprazole Sodium (Protonix) 40 mg IV NOW ONE Stop: 03/05/19 18:19 Last Admin: 03/05/19 18:53 Dose: 40 mg Vital Signs - 8 hr 03/05/19 18:09 03/05/19 20:00 03/05/19 20:30 Temperature 97.9 F Pulse Rate 84 78 Respiratory Rate 18 Blood Pressure 119/71 Blood Pressure [Left Arm] 103/56 L 121/77 Pulse Oximetry 98 98 03/05/19 21:00 Temperature Pulse Rate 76 Respiratory Rate 16 Blood Pressure 121/71 Blood Pressure [Left Arm] Pulse Oximetry 100 MDM - Abdominal Pain <Zack JO ANN Olsen - Last Filed: 03/05/19 21:02> Differential Diagnosis Differential diagnosis: Likely abdominal pain, calculus of kidney, diverticulitis, endometriosis, pancreatitis and small bowel obstruction Medical Records Attestation: I reviewed the patient's medical records. Lab Data Attestation: I reviewed the patient's lab results. Result diagrams: 03/05/19 18:10 03/05/19 18:10 Lab Results 03/05/19 03/05/19 03/05/19 Range/Units 18:10 18:10 18:10 WBC 8.9 D (4.5-11.0) X10^3/uL RBC 4.63 (4.0-5.2) X10^6/uL Hgb 13.3 (12.0-16.0) g/dL Hct 39.5 (36-46) % MCV 85.3 (80-100) fL MCH 28.6 (26-34) PG MCHC 33.6 (30-36) % RDW 13.9 (11.6-14.8) % Plt Count 270 (150-400) X10^3/uL Neut % (Auto) 64.4 (50-75) % Lymph % (Auto) 27.0 (25-40) % Morrill % (Auto) 7.0 (3-14) % Eos % (Auto) 1.1 L (2-4) % Baso % (Auto) 0.5 (0-2) % Neut # (Auto) 5800 (2145-5504) /uL Lymph # (Auto) 2400 (0189-1848) /uL Morrill # (Auto) 600 (0-900) /uL Eos # (Auto) 100 (0-450) /uL Baso # (Auto) 0 (0-100) /uL Sodium 139 (137-145) mmol/L Potassium 3.7 (3.4-5.1) mmol/L Chloride 102 (98-107) mmol/L Carbon Dioxide 26 (22-32) mmol/L BUN 12 (7-17) mg/dL Creatinine 0.70 (0.52-1.04) mg/dL Estimated GFR > 60.0 (>60) mL/min BUN/Creatinine Ratio 17.1 (6-22) Glucose 94 (70-100) mg/dL Calcium 9.2 (8.4-10.2) mg/dL Total Bilirubin 0.5 (0.2-1.3) mg/dL AST 22 (14-36) IU/L ALT 17 (9-52) IU/L Alkaline Phosphatase 104 (38-126) U/L Total Protein 8.1 (6.3-8.2) g/dL Albumin 4.6 (3.5-5.0) g/dL Globulin 3.5 (1.7-4.1) g/dL Albumin/Globulin Ratio 1.3 (1.0-2.8) Amylase 107 (30-110) U/L Lipase 369 H D (23-300) U/L Point of care testing: Point of Care Testing Test Results Negative Urine Dip Bedside Urine Glucose Negative Bedside Urine Bilirubin - Negative Bedside Urine Ketone - Negative Urine Specific [place] 1.010 Bedside Urine Occult Blood - Negative Bedside Urine pH 5.5 Bedside Urine Urobilinogen - Negative Bedside Urine Nitrite - Negative Bedside Urine Leukocytes - Negative Esterase Imaging Data CT scan - abdomen: Radiologist's impression: [address] [address] [address] Scan Report Signed Patient: Sepideh Scott LMR#: [id number] : 1985Acct:[id number] Age/Sex: 33 / FDate of Service: 03/05/19 Loc: ED Accession Number: [id number] Procedure: CT abdomen pelvis w con Ordering Provider: Zack Olsen PROCEDURE: CT ABDOMEN PELVIS W CON INDICATIONS: generalized abdomen pain and nausea TECHNIQUE: After the administration of intravenous contrast, 5 mm thick sections acquired from the diaphragm to the symphysis. 5 mm coronal and sagittal reformats were acquired. For radiation dose reduction, the following was used: automated exposure control, adjustment of mA and/or kV according to patient size. COMPARISON: [facility], , ABDOMEN LIMITED, 03/04/2019, 8:51. FINDINGS: Image quality: Excellent. ABDOMEN: Lung bases: Lung bases are clear. Heart size is normal. Solid organs: Liver is normal in size and enhancement. Gallbladder is unremarkable. Biliary system is non dilated. Pancreas enhances normally. Spleen is normal in size and enhancement. No adrenal nodules. Kidneys demonstrate normal size and enhancement, without hydronephrosis. Peritoneum and bowel: Bowel loops demonstrate normal wall thickness and caliber. No free air. Minimal physiologic fluid in the pelvis. Remote appendectomy. No abscess cavity. Nodes and vessels: No retroperitoneal or mesenteric adenopathy by size criteria. Aorta and inferior vena cava are normal in size. Miscellaneous: No ventral hernias. PELVIS: Genitourinary: Bladder wall thickness is normal. Miscellaneous: No inguinal hernias or adenopathy. Retroverted uterus. Bones: No suspicious bony lesions. No vertebral body compression fractures. IMPRESSION: No evidence of acute abdominal process. Dictated by: Laurent Etienne M.D. on 03/05/2019 at 19:11 Approved by: Laurent Etienne M.D. on 03/05/2019 at 19:14 [facility] Narrative Medical decision making narrative: This is a 33-year-old female who presents with generalized abdominal pain, nausea with multiple vomiting, and some loose stool. She was seen in ED here yesterday for evaluation on her right upper abdominal pain with benign abdominal exam and unremarkable blood and ultrasound tests. She reports today the location of pain has migrated to lower abdomen radiating to bilateral back. She denies fever, chills. She reports some burning with urination which started yesterday. There was no blood in her urine, no indications for infection, and urine was negative. Although patient reported multiple vomiting last 24 hours, her urine specific gravity was lower than normal range, there was no ketones in her urine. The blood tests and CAT scan of abdomen pelvis were unremarkable with exception of lipase which was mildly increased at 369 today. Patient was hydrated with normal saline 1 L, medicated with Zofran 4 mg IV, pantoprazole 40 mg IV. Patient was discharged to home yesterday with Zofran and Stoughton for her symptoms. The patient reports Zofran does not always work hurts nausea. Patient was offered for Phenergan and patient states she already has this at home and will try by alternating the medication. Patient reports increasing abdominal pain during the course of ED stay, patient was medicated with Ketolac IV 30 mg before discharge to home. Patient reports her pain has improved. Patient was able to tolerate ice chips. Patient was advised to follow up with her primary care physician this coming week. Discussed return precautions with patient. Questions answered to apparent satisfaction. <Ronal Mayfield, DO - Last Filed: 03/08/19 23:56> Lab Data Lab Results 03/05/19 03/05/19 03/05/19 Range/Units 18:10 18:10 18:10 WBC 8.9 D (4.5-11.0) X10^3/uL RBC 4.63 (4.0-5.2) X10^6/uL Hgb 13.3 (12.0-16.0) g/dL Hct 39.5 (36-46) % MCV 85.3 (80-100) fL MCH 28.6 (26-34) PG MCHC 33.6 (30-36) % RDW 13.9 (11.6-14.8) % Plt Count 270 (150-400) X10^3/uL Neut % (Auto) 64.4 (50-75) % Lymph % (Auto) 27.0 (25-40) % Morrill % (Auto) 7.0 (3-14) % Eos % (Auto) 1.1 L (2-4) % Baso % (Auto) 0.5 (0-2) % Neut # (Auto) 5800 (7195-9922) /uL Lymph # (Auto) 2400 (3874-0522) /uL [place]rill # (Auto) 600 (0-900) /uL Eos # (Auto) 100 (0-450) /uL Baso # (Auto) 0 (0-100) /uL Sodium 139 (137-145) mmol/L Potassium 3.7 (3.4-5.1) mmol/L Chloride 102 (98-107) mmol/L Carbon Dioxide 26 (22-32) mmol/L BUN 12 (7-17) mg/dL Creatinine 0.70 (0.52-1.04) mg/dL Estimated GFR > 60.0 (>60) mL/min BUN/Creatinine Ratio 17.1 (6-22) Glucose 94 (70-100) mg/dL Calcium 9.2 (8.4-10.2) mg/dL Total Bilirubin 0.5 (0.2-1.3) mg/dL AST 22 (14-36) IU/L ALT 17 (9-52) IU/L Alkaline Phosphatase 104 (38-126) U/L Total Protein 8.1 (6.3-8.2) g/dL Albumin 4.6 (3.5-5.0) g/dL Globulin 3.5 (1.7-4.1) g/dL Albumin/Globulin Ratio 1.3 (1.0-2.8) Amylase 107 (30-110) U/L Lipase 369 H D (23-300) U/L Point of care testing: Point of Care Testing Test Results Negative Urine Dip Bedside Urine Glucose Negative Bedside Urine Bilirubin - Negative Bedside Urine Ketone - Negative Urine Specific [place] 1.010 Bedside Urine Occult Blood - Negative Bedside Urine pH 5.5 Bedside Urine Urobilinogen - Negative Bedside Urine Nitrite - Negative Bedside Urine Leukocytes - Negative Esterase Discharge Plan Departure Patient Disposition: Home Clinical Impression: History of IBS Abdominal pain Qualifiers: Abdominal location: generalized Qualified Code(s): R10.84 - Generalized abdominal pain Nausea & vomiting Qualifiers: Vomiting type: unspecified Vomiting Intractability: non-intractable Qualified Code(s): R11.2 - Nausea with vomiting, unspecified Discharge Date/Time: 03/05/19 21:06 Interventions: ED Discharge Assessment Last Done: 03/05/19 21:00 Instructions: DI for Acute Abdomen, Nausea and Vomiting-Adult Activity Restrictions/Additional Instructions: You have been diagnosed with [ abdominal pain and nausea vomiting, history of IBS. The blood tests and CAT scan tests were unremarkable today. The urine does not look like having an infection. The lipase blood test was very mildly elevated today. You should get this recheck in a few weeks.]. What to do: *Take your medications as directed. You can take your own Zofran, Phenergan for nausea and vomiting as needed. Stoughton that you have received yesterday as needed for pain. Continue her current medications. *Follow up with your primary care provider in 2-3 days, call for an appointment. Let them know you were seen in the ED and that we asked you to be seen in follow up. *Return to ED if you have any new, worsening, or concerning symptoms, such as [severe abdominal pain, fever/chills, unable to tolerate fluids even after the medications you have, chest pain, breathing difficulty, any acute concerns]. Prescriptions: No Action omeprazole 20 mg capsule,delayed release(DR/EC) 20 mg PO BID PRN (Reason: Acid Reflux) RF: 0 tramadol [Ultram] 50 mg tablet 50 mg PO TID PRN (Reason: pain) Qty: 10 RF: 0 ondansetron 4 mg tablet,disintegrating 4 mg PO Q6H PRN (Reason: nausea and vomiting) Qty: 10 RF: 0 PNV cmb#95-ferrous fumarate-FA [] 28 mg iron- 800 mcg Tablet 1 tab PO DAILY RF: 0 hydrocodone-acetaminophen [Stoughton] 5-325 mg tablet 1 tab PO Q4-6H PRN (Reason: pain) Qty: 7 RF: 0 Referrals: [facility] [Outside] <Ronal Mayfield DO - Last Filed: 03/08/19 23:56> Cosign ED Attending Dioni Attestation: I was available for consultation during this patient's emergency department encounter
[2019-03-05 18:26] LABS: Add Manual Diff / Slide Review NO; Basophils Absolute Auto 0 /uL (0-100); Basophils Percent Auto 0.5 % (0-2); Eosinophils Absolute Auto 100 /uL (0-450); Eosinophils Percent Auto 1.1 % (2-4); Hematocrit 39.5 % (36-46); Hemoglobin 13.3 g/dL (12.0-16.0); Lymphocytes Absolute Auto 2400 /uL (1100-4500); Mean Corpuscular HGB Conc 33.6 % (30-36); Mean Corpuscular Hemoglobin 28.6 PG (26-34); Mean Corpuscular Volume 85.3 fL (80-100); Monocytes Absolute Auto 600 /uL (0-900); Neutrophils Absolute Auto 5800 /uL (1500-7000); Neutrophils Percent Auto 64.4 % (50-75); Platelet Count 270 X10^3/uL (150-400); Red Blood Cell Count 4.63 X10^6/uL (4.0-5.2); Red Cell Distribution Width 13.9 % (11.6-14.8); White Blood Cell Count 8.9 X10^3/uL (4.5-11.0)
--- NOTE | 2019-03-05 18:26 | ED_ITS ---
HPI - Abdominal Pain <Zack JO ANN Olsen - Last Filed: 03/05/19 21:02> General Chief Complaint: Abdominal Pain Stated Complaint: abdominal pain Time Seen by Provider: 03/05/19 18:00 Source: patient Mode of arrival: ambulatory Limitations: no limitations History of Present Illness HPI narrative: This is a 33-year-old female, nonsmoker, who presents with diffused abdominal pain with nausea and vomiting x8 during last 24. She has also loose stools which is not uncommon for her with history of IBS. Denies blood in stool or emesis. She denies fever, chills. She was seen here yesterday and evaluated with abdominal pain and returned today reporting her pain has now migrated from right upper quadrant to right lower abdomen and radiating to her bilateral back. She started having mild urination with burning which started yesterday. Patient reports a movements, putting pressure on her abdomen increases pain. She states nothing really helps with her pain. She was evaluated with ultrasound test, blood test, and urine test yesterday with unremarkable findings with benign physical exam. She reports has taken [place] had 4:00 p.m. prior coming into ED. Patient has history of endometriosis, PCOS, has history of bilateral tubal ligation. Patient reports her endometriosis symptoms are different from this abdominal pain. She denies unusual vaginal discharge or vaginal bleeding. Her last LMP was 02/17/19. Related Data Home Medications Medication Instructions Recorded Confirmed PNV cmb#95-ferrous fumarate-FA 1 tab PO DAILY 03/04/19 03/04/19 [] omeprazole 20 mg PO BID PRN 03/04/19 03/04/19 Previous Rx's Medication Instructions Recorded hydrocodone-acetaminophen [[place]] 1 tab PO Q4-6H PRN #7 tab 03/04/19 ondansetron 4 mg PO Q6H PRN #10 tab 03/04/19 tramadol [Ultram] 50 mg PO TID PRN #10 tab 03/04/19 Allergies Allergy/AdvReac Type Severity Reaction Status Date / Time amoxicillin Allergy Intermediate Vomiting Verified 03/05/19 18:13 aspirin Allergy Mild Watery Eye Verified 03/05/19 18:13 codeine Allergy Mild Vomiting Verified 03/05/19 18:13 phenazopyridine Allergy Mild Swelling Verified 03/05/19 18:13 [From Pyridium] of Lip/Tongue/Throat tramadol AdvReac Vomiting Verified 03/05/19 18:13 Review of Systems <JO ANN Ballesteros - Last Filed: 03/05/19 21:02> Review of Systems General: Denies fever, chills, fatigue, malaise, sweats. HEENT: Denies sinus pain, ear pain, sore throat, difficulty swallowing, dizziness. Respiratory: Denies dyspnea, cough, wheezing, hemoptysis, sputum. Cardiovascular: Denies chest pain, palpitations, orthopnea, edema. Gastrointestinal: See HPI : Reports burning with urination. Denies dysuria, frequency, incontinence, hematuria, urinary retention. Musculoskeletal: Denies weakness, joint pain or bony pain. Skin: Denies rash, skin lesions, or other. Neurologic: Denies weakness, headache, numbness, change in speech, confusion, seizures, incoordination. Psychiatric: No concerning psychosocial issues. 12-point review of systems is negative except for those stated above. PFSH <JO ANN Ballesteros - Last Filed: 03/05/19 21:02> Medical History History of multiple miscarriages (Acute) Endometriosis (Chronic) IBD (inflammatory bowel disease) (Chronic) PCOS (polycystic ovarian syndrome) (Chronic) Surgical History H/O section (Resolved) H/O laparoscopy (Resolved) H/O tubal ligation (Resolved) History of (Resolved) History of orthopedic surgery (Resolved) S/P appy (Resolved) Social History household members: spouse and children Smoking Status: Never smoker alcohol intake: never substance use type: marijuana Social History household members: spouse and children Smoking Status: Never smoker alcohol intake: never substance use type: marijuana Exam <JO ANN Ballesteros - Last Filed: 03/05/19 21:02> Narrative Exam Narrative: GEN: Alert, oriented x 3, well appearing and nourished, and in no acute distress. Head: Normal cephalic, atraumatic. No scalp or temporal tenderness, palpable mass or rash. EYES: Pupils are equal, round, and reactive to light and accommodation. Extrao cular muscles are intact bilaterally. There is no subconjunctival hemorrhage, exudate and sclera non-icteric. ENT: Nose without bleeding, purulent discharge. Mucous membrane moist, no mucosal lesion. Throat without erythema, tonsillar hypertrophy or exudate. Uvula in midline, airway patent. Neck: Trachea in midline. No JVD, non-tender without lymphadenopathy. No masses or thyroid megaly. Supple, non-tender and no meningeal signs. CARDIAC: Normal regular rate and rhythm without murmurs, gallops, or rubs. No chest wall tenderness. No peripheral edema, cyanosis or pallor. Capillary re fill is less than 2 seconds. RESPIRATORY: Lungs are cleat to auscultate bilaterally. No cough, wheezes, rales, or rhonchi. No stridor, respiratory distress, increase work of breathing, or accessary muscle used. ABD: Abdomen soft, tender to palpate in RLQ, LUQ, LLQ and non-distended. No guarding or rebound tenderness to palpate. Bowel sounds are normal in all 4 quadrants. There is no palpable masses or organomegaly. Bilateral suprapubis area is not tender to palpate and soft. EXT: Full painless ROM of all extremities with no loss of sensation, strength, effusion or edema. SKIN: Warm, dry, normal color for patient. No erythema, lesions or rash over visible areas. BACK: Nontender without deformity or crepitance. Bilateral flank pain to percuss and with deep palpation. NEUROLOGICAL: Alert and oriented to place, time and person. Sensation and motor function intact bilaterally. No facial droops, dysphasia. PSYCHIATRIC: Good judgement and reason, without hallucinations, abnormal affect or abnormal behaviors during the examination. Patient is not suicidal. Initial Vital Signs Initial Vital Signs: Vital Signs Temperature 97.9 F 03/05/19 18:09 Pulse Rate 84 03/05/19 18:09 Respiratory Rate 18 03/05/19 18:09 Blood Pressure 119/71 03/05/19 18:09 Pulse Oximetry 98 03/05/19 18:09 <Ronal Mayfield DO - Last Filed: 03/08/19 23:56> Initial Vital Signs Initial Vital Signs: Vital Signs Temperature 97.9 F 03/05/19 18:09 Pulse Rate 84 03/05/19 18:09 Respiratory Rate 18 03/05/19 18:09 Blood Pressure 119/71 03/05/19 18:09 Pulse Oximetry 98 03/05/19 18:09 Scores <Zack GuilloryJO ANN Gonzales - Last Filed: 03/05/19 21:02> GCS [place] coma scale eye opening: Spontaneous [place] coma scale verbal response: Orientated [place] coma scale motor response: Obey commands [place] coma scale total score: 15 Course <JO ANN Ballesteros - Last Filed: 03/05/19 21:02> Orders Ordered: Discontinued Medications Dicyclomine HCl (Bentyl) 20 mg PO NOW ONE Stop: 03/05/19 19:32 Last Admin: 03/05/19 20:14 Dose: 20 mg Sodium Chloride (Normal Saline 0.9%) 1,000 mls @ 1,000 mls/hr IV BOLUS ONE Stop: 03/05/19 19:17 Last Infusion: 03/05/19 20:17 Dose: 0 mls/hr Admin: 03/05/19 18:53 Dose: 1,000 mls/hr Ketorolac Tromethamine (Toradol) 30 mg IV NOW ONE Stop: 03/05/19 20:33 Last Admin: 03/05/19 20:41 Dose: 30 mg Ondansetron HCl (Zofran) 4 mg IV NOW ONE Stop: 03/05/19 18:19 Last Admin: 03/05/19 18:53 Dose: 4 mg Pantoprazole Sodium (Protonix) 40 mg IV NOW ONE Stop: 03/05/19 18:19 Last Admin: 03/05/19 18:53 Dose: 40 mg Vital Signs - 8 hr 03/05/19 18:09 03/05/19 20:00 03/05/19 20:30 Temperature 97.9 F Pulse Rate 84 78 Respiratory Rate 18 Blood Pressure 119/71 Blood Pressure [Left Arm] 103/56 L 121/77 Pulse Oximetry 98 98 03/05/19 21:00 Temperature Pulse Rate 76 Respiratory Rate 16 Blood Pressure 121/71 Blood Pressure [Left Arm] Pulse Oximetry 100 <Ronal Mayfield DO - Last Filed: 03/08/19 23:56> Orders Ordered: Discontinued Medications Dicyclomine HCl (Bentyl) 20 mg PO NOW ONE Stop: 03/05/19 19:32 Last Admin: 03/05/19 20:14 Dose: 20 mg Sodium Chloride (Normal Saline 0.9%) 1,000 mls @ 1,000 mls/hr IV BOLUS ONE Stop: 03/05/19 19:17 Last Infusion: 03/05/19 20:17 Dose: 0 mls/hr Admin: 03/05/19 18:53 Dose: 1,000 mls/hr Ketorolac Tromethamine (Toradol) 30 mg IV NOW ONE Stop: 03/05/19 20:33 Last Admin: 03/05/19 20:41 Dose: 30 mg Ondansetron HCl (Zofran) 4 mg IV NOW ONE Stop: 03/05/19 18:19 Last Admin: 03/05/19 18:53 Dose: 4 mg Pantoprazole Sodium (Protonix) 40 mg IV NOW ONE Stop: 03/05/19 18:19 Last Admin: 03/05/19 18:53 Dose: 40 mg Vital Signs - 8 hr 03/05/19 18:09 03/05/19 20:00 03/05/19 20:30 Temperature 97.9 F Pulse Rate 84 78 Respiratory Rate 18 Blood Pressure 119/71 Blood Pressure [Left Arm] 103/56 L 121/77 Pulse Oximetry 98 98 03/05/19 21:00 Temperature Pulse Rate 76 Respiratory Rate 16 Blood Pressure 121/71 Blood Pressure [Left Arm] Pulse Oximetry 100 MDM - Abdominal Pain <Zack JO ANN Olsen - Last Filed: 03/05/19 21:02> Differential Diagnosis Differential diagnosis: Likely abdominal pain, calculus of kidney, diverticulitis, endometriosis, pancreatitis and small bowel obstruction Medical Records Attestation: I reviewed the patient's medical records. Lab Data Attestation: I reviewed the patient's lab results. Result diagrams: 03/05/19 18:10 03/05/19 18:10 Lab Results 03/05/19 03/05/19 03/05/19 Range/Units 18:10 18:10 18:10 WBC 8.9 D (4.5-11.0) X10^3/uL RBC 4.63 (4.0-5.2) X10^6/uL Hgb 13.3 (12.0-16.0) g/dL Hct 39.5 (36-46) % MCV 85.3 (80-100) fL MCH 28.6 (26-34) PG MCHC 33.6 (30-36) % RDW 13.9 (11.6-14.8) % Plt Count 270 (150-400) X10^3/uL Neut % (Auto) 64.4 (50-75) % Lymph % (Auto) 27.0 (25-40) % [place] % (Auto) 7.0 (3-14) % Eos % (Auto) 1.1 L (2-4) % Baso % (Auto) 0.5 (0-2) % Neut # (Auto) 5800 (1560-0790) /uL Lymph # (Auto) 2400 (2803-7973) /uL [place] # (Auto) 600 (0-900) /uL Eos # (Auto) 100 (0-450) /uL Baso # (Auto) 0 (0-100) /uL Sodium 139 (137-145) mmol/L Potassium 3.7 (3.4-5.1) mmol/L Chloride 102 (98-107) mmol/L Carbon Dioxide 26 (22-32) mmol/L BUN 12 (7-17) mg/dL Creatinine 0.70 (0.52-1.04) mg/dL Estimated GFR > 60.0 (>60) mL/min BUN/Creatinine Ratio 17.1 (6-22) Glucose 94 (70-100) mg/dL Calcium 9.2 (8.4-10.2) mg/dL Total Bilirubin 0.5 (0.2-1.3) mg/dL AST 22 (14-36) IU/L ALT 17 (9-52) IU/L Alkaline Phosphatase 104 (38-126) U/L Total Protein 8.1 (6.3-8.2) g/dL Albumin 4.6 (3.5-5.0) g/dL Globulin 3.5 (1.7-4.1) g/dL Albumin/Globulin Ratio 1.3 (1.0-2.8) Amylase 107 (30-110) U/L Lipase 369 H D (23-300) U/L Point of care testing: Point of Care Testing Test Results Negative Urine Dip Bedside Urine Glucose Negative Bedside Urine Bilirubin - Negative Bedside Urine Ketone - Negative Urine Specific [place] 1.010 Bedside Urine Occult Blood - Negative Bedside Urine pH 5.5 Bedside Urine Urobilinogen - Negative Bedside Urine Nitrite - Negative Bedside Urine Leukocytes - Negative Esterase Imaging Data CT scan - abdomen: Radiologist's impression: [address] [address] [address] Scan Report Signed Patient: Sepideh Scott LMR#: [id number] : 1985Acct:[id number] Age/Sex: 33 / FDate of Service: 03/05/19 Loc: ED Accession Number: [id number] Procedure: CT abdomen pelvis w con Ordering Provider: Zack Olsen PROCEDURE: CT ABDOMEN PELVIS W CON INDICATIONS: generalized abdomen pain and nausea TECHNIQUE: After the administration of intravenous contrast, 5 mm thick sections acquired from the diaphragm to the symphysis. 5 mm coronal and sagittal reformats were acquired. For radiation dose reduction, the following was used: automated exposure control, adjustment of mA and/or kV according to patient size. COMPARISON: [facility], , [place] ABDOMEN LIMITED, 03/04/2019, 8:51. FINDINGS: Image quality: Excellent. ABDOMEN: Lung bases: Lung bases are clear. Heart size is normal. Solid organs: Liver is normal in size and enhancement. Gallbladder is unremarkable. Biliary system is non dilated. Pancreas enhances normally. Spleen is normal in size and enhancement. No adrenal nodules. Kidneys demonstrate normal size and enhancement, without hydronephrosis. Peritoneum and bowel: Bowel loops demonstrate normal wall thickness and caliber. No free air. Minimal physiologic fluid in the pelvis. Remote appendectomy. No abscess cavity. Nodes and vessels: No retroperitoneal or mesenteric adenopathy by size criteria. Aorta and inferior vena cava are normal in size. Miscellaneous: No ventral hernias. PELVIS: Genitourinary: Bladder wall thickness is normal. Miscellaneous: No inguinal hernias or adenopathy. Retroverted uterus. Bones: No suspicious bony lesions. No vertebral body compression fractures. IMPRESSION: No evidence of acute abdominal process. Dictated by: Laurent Etienne M.D. on 03/05/2019 at 19:11 Approved by: Laurent Etienne M.D. on 03/05/2019 at 19:14 [facility] Narrative Medical decision making narrative: This is a 33-year-old female who presents with generalized abdominal pain, nausea with multiple vomiting, and some loose stool. She was seen in ED here yesterday for evaluation on her right upper abdominal pain with benign abdominal exam and unremarkable blood and ultrasound tests. She reports today the location of pain has migrated to lower abdomen radiating to bilateral back. She denies fever, chills. She reports some burning with urination which started yesterday. There was no blood in her urine, no indications for infection, and urine was negative. Although patient reported multiple vomiting last 24 hours, her urine specific gravity was lower than normal range, there was no ketones in her urine. The blood tests and CAT scan of abdomen pelvis were unremarkable with exception of lipase which was mildly increased at 369 today. Patient was hydrated with normal saline 1 L, medicated with Zofran 4 mg IV, pantoprazole 40 mg IV. Patient was discharged to home yesterday with Zofran and [place] for her symptoms. The patient reports Zofran does not always work hurts nausea. Patient was offered for Phenergan and patient states she already has this at home and will try by alternating the medication. Patient reports increasing abdominal pain during the course of ED stay, patient was medicated with Ketolac IV 30 mg before discharge to home. Patient reports her pain has improved. Patient was able to tolerate ice chips. Patient was advised to follow up with her primary care physician this coming week. Discussed return precautions with patient. Questions answered to apparent satisfaction. <Ronal Mayfield, DO - Last Filed: 03/08/19 23:56> Lab Data Lab Results 03/05/19 03/05/19 03/05/19 Range/Units 18:10 18:10 18:10 WBC 8.9 D (4.5-11.0) X10^3/uL RBC 4.63 (4.0-5.2) X10^6/uL Hgb 13.3 (12.0-16.0) g/dL Hct 39.5 (36-46) % MCV 85.3 (80-100) fL MCH 28.6 (26-34) PG MCHC 33.6 (30-36) % RDW 13.9 (11.6-14.8) % Plt Count 270 (150-400) X10^3/uL Neut % (Auto) 64.4 (50-75) % Lymph % (Auto) 27.0 (25-40) % [place] % (Auto) 7.0 (3-14) % Eos % (Auto) 1.1 L (2-4) % Baso % (Auto) 0.5 (0-2) % Neut # (Auto) 5800 (2052-0324) /uL Lymph # (Auto) 2400 (7913-7739) /uL [place] # (Auto) 600 (0-900) /uL Eos # (Auto) 100 (0-450) /uL Baso # (Auto) 0 (0-100) /uL Sodium 139 (137-145) mmol/L Potassium 3.7 (3.4-5.1) mmol/L Chloride 102 (98-107) mmol/L Carbon Dioxide 26 (22-32) mmol/L BUN 12 (7-17) mg/dL Creatinine 0.70 (0.52-1.04) mg/dL Estimated GFR > 60.0 (>60) mL/min BUN/Creatinine Ratio 17.1 (6-22) Glucose 94 (70-100) mg/dL Calcium 9.2 (8.4-10.2) mg/dL Total Bilirubin 0.5 (0.2-1.3) mg/dL AST 22 (14-36) IU/L ALT 17 (9-52) IU/L Alkaline Phosphatase 104 (38-126) U/L Total Protein 8.1 (6.3-8.2) g/dL Albumin 4.6 (3.5-5.0) g/dL Globulin 3.5 (1.7-4.1) g/dL Albumin/Globulin Ratio 1.3 (1.0-2.8) Amylase 107 (30-110) U/L Lipase 369 H D (23-300) U/L Point of care testing: Point of Care Testing Test Results Negative Urine Dip Bedside Urine Glucose Negative Bedside Urine Bilirubin - Negative Bedside Urine Ketone - Negative Urine Specific [place] 1.010 Bedside Urine Occult Blood - Negative Bedside Urine pH 5.5 Bedside Urine Urobilinogen - Negative Bedside Urine Nitrite - Negative Bedside Urine Leukocytes - Negative Esterase Discharge Plan Departure Patient Disposition: Home Clinical Impression: History of IBS Abdominal pain Qualifiers: Abdominal location: generalized Qualified Code(s): R10.84 - Generalized abdominal pain Nausea & vomiting Qualifiers: Vomiting type: unspecified Vomiting Intractability: non-intractable Qualified Code(s): R11.2 - Nausea with vomiting, unspecified Discharge Date/Time: 03/05/19 21:06 Interventions: ED Discharge Assessment Last Done: 03/05/19 21:00 Instructions: DI for Acute Abdomen, Nausea and Vomiting-Adult Activity Restrictions/Additional Instructions: You have been diagnosed with [ abdominal pain and nausea vomiting, history of IBS. The blood tests and CAT scan tests were unremarkable today. The urine does not look like having an infection. The lipase blood test was very mildly elevated today. You should get this recheck in a few weeks.]. What to do: *Take your medications as directed. You can take your own Zofran, Phenergan for nausea and vomiting as needed. [place] that you have received yesterday as needed for pain. Continue her current medications. *Follow up with your primary care provider in 2-3 days, call for an appointment. Let them know you were seen in the ED and that we asked you to be seen in follow up. *Return to ED if you have any new, worsening, or concerning symptoms, such as [severe abdominal pain, fever/chills, unable to tolerate fluids even after the medications you have, chest pain, breathing difficulty, any acute concerns]. Prescriptions: No Action omeprazole 20 mg capsule,delayed release(DR/EC) 20 mg PO BID PRN (Reason: Acid Reflux) RF: 0 tramadol [Ultram] 50 mg tablet 50 mg PO TID PRN (Reason: pain) Qty: 10 RF: 0 ondansetron 4 mg tablet,disintegrating 4 mg PO Q6H PRN (Reason: nausea and vomiting) Qty: 10 RF: 0 PNV cmb#95-ferrous fumarate-FA [] 28 mg iron- 800 mcg Tablet 1 tab PO DAILY RF: 0 hydrocodone-acetaminophen [[place]] 5-325 mg tablet 1 tab PO Q4-6H PRN (Reason: pain) Qty: 7 RF: 0 Referrals: [facility] [Outside] <Ronal Mayfield DO - Last Filed: 03/08/19 23:56> [facility] ED Attending Dioni Attestation: I was available for consultation during this patient's emergency department encounter
[2019-03-05 18:36] LABS: Alanine Aminotransferase 17 IU/L (9-52); Albumin 4.6 g/dL (3.5-5.0); Albumin Globulin Ratio 1.3 (1.0-2.8); Alkaline Phosphatase 104 U/L (38-126); Aspartate Aminotransferase 22 IU/L (14-36); BUN Creatinine Ratio 17.1 (6-22); Bilirubin Total 0.5 mg/dL (0.2-1.3); Blood Urea Nitrogen 12 mg/dL (7-17); Calcium 9.2 mg/dL (8.4-10.2); Carbon Dioxide 26 mmol/L (22-32); Chloride 102 mmol/L (98-107); Estimated Glomerular Filt Rate > 60.0 mL/min (>60); Globulin 3.5 g/dL (1.7-4.1); Glucose 94 mg/dL (70-100); HEMOLYSIS < 15 (0-50); Lipase 369 U/L (23-300); Potassium 3.7 mmol/L (3.4-5.1); Sodium 139 mmol/L (137-145); Total Protein 8.1 g/dL (6.3-8.2)
--- NOTE | 2019-03-05 18:43 | DI.CT.S_ITS ---
PROCEDURE: CT ABDOMEN PELVIS W CON INDICATIONS: generalized abdomen pain and nausea TECHNIQUE: After the administration of intravenous contrast, 5 mm thick sections acquired from the diaphragm to the symphysis. 5 mm coronal and sagittal reformats were acquired. For radiation dose reduction, the following was used: automated exposure control, adjustment of mA and/or kV according to patient size. COMPARISON: [facility], , ABDOMEN LIMITED, 03/04/2019, 8:51. FINDINGS: Image quality: Excellent. ABDOMEN: Lung bases: Lung bases are clear. Heart size is normal. Solid organs: Liver is normal in size and enhancement. Gallbladder is unremarkable. Biliary system is non dilated. Pancreas enhances normally. Spleen is normal in size and enhancement. No adrenal nodules. Kidneys demonstrate normal size and enhancement, without hydronephrosis. Peritoneum and bowel: Bowel loops demonstrate normal wall thickness and caliber. No free air. Minimal physiologic fluid in the pelvis. Remote appendectomy. No abscess cavity. Nodes and vessels: No retroperitoneal or mesenteric adenopathy by size criteria. Aorta and inferior vena cava are normal in size. Miscellaneous: No ventral hernias. PELVIS: Genitourinary: Bladder wall thickness is normal. Miscellaneous: No inguinal hernias or adenopathy. Retroverted uterus. Bones: No suspicious bony lesions. No vertebral body compression fractures. IMPRESSION: No evidence of acute abdominal process. Dictated by: Laurent Etienne M.D. on 03/05/2019 at 19:11 Approved by: Laurent Etienne M.D. on 03/05/2019 at 19:14
[2019-03-05] MEDS: ONDANSETRON 4 MG/2 ML INJ IV (18:53)
[2019-03-05] MEDS: PANTOPRAZOLE 40 MG VIAL IV (18:53)
[2019-03-05] MEDS: SODIUM CHLORIDE 0.9% 1,000 ML 1000 ML IV (18:53)
[2019-03-05 19:11] LABS: Amylase 107 U/L (30-110)
[2019-03-05 20:00] VITALS: BP 103/56; PULSE 78; O2SAT 98
[2019-03-05] MEDS: DICYCLOMINE 10 MG CAPSULE 20 MG PO (20:14)
[2019-03-05 20:30] VITALS: BP 121/77
[2019-03-05] MEDS: KETOROLAC 60 MG/2 ML VIAL 30 MG IV (20:41)
[2019-03-05 21:00] VITALS: BP 121/71; PULSE 76; RESP 16; O2SAT 100
== END 2019-03-05 21:06 | disposition home or self-care (01) ==
PROVIDERS: Emergency Provider Nurse Practitioner Family
DX: R10.84 Generalized abdominal pain (principal); R11.2 Nausea with vomiting, unspecified; Z87.19 Personal history of other diseases of the digestive system
CPT/HCPCS: 36591; 74177; 80053; 81003; 81025; 82150; 83690; 85025; 96361; 96374; 96375; 99283; 99285; C9113; J1885; J2405; Q9967

== ENCOUNTER 2019-09-26 09:00 | Emergency (ER) | payer OTHER, SELFPAY ==
[2018-01-10 19:23] VITALS: BMI 26.2
[2019-09-26 09:07] VITALS: BP 129/81; PULSE 112; RESP 18; TEMP 36.1; O2SAT 97
--- NOTE | 2019-09-26 09:16 | ED.URI ---
HPI - URI/Sore Throat General Chief Complaint: Upper Respiratory Symptoms Stated Complaint: Cough,vomitting Time Seen by Provider: 09/26/19 09:14 Source: patient Mode of arrival: Ambulatory Limitations: no limitations History of Present Illness HPI Narrative: 34-year-old woman with a history of irritable bowel disease still breast-feeding presents with a week of cough low-grade fevers began vomiting yesterday and now is significantly dehydrated. She notes that everybody in the house has had similar symptoms but seems to be improving. She also notes that her breast milk supply is almost gone today as she is so dehydrated. Low-grade fevers, cough nonproductive, no dyspnea, no significant rashes, chest pain only from the cough, no abdominal pain, she is not dizzy when standing, she does note sinus fullness bilaterally left maxillary is the worst. She has been using nasal saline rinses and getting quite a bit of debris from her sinuses, no dental pain no sore throat. Related Data Home Medications Medication Instructions Recorded Confirmed PNV cmb#95-ferrous fumarate-FA 1 tab PO DAILY 03/04/19 03/04/19 [] omeprazole 20 mg PO BID PRN 03/04/19 03/04/19 Previous Rx's Medication Instructions Recorded azithromycin See Rx Instructions .ROUTE 09/26/19 .COMPLEX #6 tab ondansetron 8 mg PO Q12H PRN #14 tab 09/26/19 Allergies Allergy/AdvReac Type Severity Reaction Status Date / Time amoxicillin Allergy Intermediate Vomiting Verified 03/05/19 18:13 aspirin Allergy Mild Watery Eye Verified 03/05/19 18:13 codeine Allergy Mild Vomiting Verified 03/05/19 18:13 phenazopyridine Allergy Mild Swelling Verified 03/05/19 18:13 [From Pyridium] of Lip/Tongue/Throat tramadol AdvReac Vomiting Verified 03/05/19 18:13 Review of Systems Review of Systems Narrative: All systems reviewed and are unremarkable except as noted in HPI and below Patient History Social History household members: spouse and children Smoking Status: Never smoker alcohol intake: never substance use type: marijuana Smoking Status: Never smoker alcohol intake frequency: 0-2 drinks per day Substance Use Type: marijuana Exam Narrative Exam Narrative: General: Healthy appearing, mild distress with cough, circles under her eyes. Able to give a complete and coherent history. Well-nourished well-developed HEENT: Moist mucous membranes, normal sclera with reactive pupils, Neck: No JVD, supple Respiratory: Lungs minor scattered wheezes throughout all lung rosa and rhonchi in her right base and right axilla. Full and symmetrical air movement Cardiac: Tachycardic with regular rhythm no murmurs no bruits Abdomen: Soft nontender good bowel tones, no flank pain Skin: Warm and dry, no rashes, severe acne with multiple acne scars Neurologic: Grossly neurologically intact with no obvious asymmetries or abnormalities Extremities: No trauma, well perfused Psych: Cooperative, appropriate insight and affect Initial Vital Signs Initial Vital Signs: Vital Signs Temperature 97.0 F L 09/26/19 09:07 Pulse Rate 112 H 09/26/19 09:07 Respiratory Rate 18 09/26/19 09:07 Blood Pressure 129/81 09/26/19 09:07 Pulse Oximetry 97 09/26/19 09:07 Course Orders Ordered: ED Orders 09/26/19 09:15 Complete Blood Count AUTO DIFF Stat Comprehensive Metabolic Panel Stat Discontinued Medications Sodium Chloride (Normal Saline 0.9%) 1,000 mls @ 1,000 mls/hr IV BOLUS ONE Stop: 09/26/19 10:13 Last Infusion: 09/26/19 10:38 Dose: 0 mls/hr Documented by: Admin: 09/26/19 09:31 Dose: 1,000 mls/hr Documented by: LEYDI Sodium Chloride (Normal Saline 0.9%) 1,000 mls @ 1,000 mls/hr IV BOLUS ONE Stop: 09/26/19 10:56 Last Infusion: 09/26/19 11:47 Dose: 0 mls/hr Documented by: Admin: 09/26/19 10:37 Dose: 1,000 mls/hr Documented by: LEYDI Ondansetron HCl (Zofran) 4 mg IV NOW ONE Stop: 09/26/19 09:15 Last Admin: 09/26/19 09:30 Dose: 4 mg Documented by: LEYDI Vital Signs Vital signs: Vital Signs - 8 hr 09/26/19 09:07 09/26/19 10:00 09/26/19 11:48 Temperature 97.0 F L 98.4 F Pulse Rate 112 H 88 91 H Respiratory Rate 18 18 Blood Pressure 129/81 Blood Pressure [Right Arm] 125/77 114/75 Pulse Oximetry 97 97 MDM - URI/Sore Throat Medical Records Attestation: I reviewed the patient's medical records. Lab Data Attestation: I reviewed the patient's lab results. Result diagrams: 09/26/19 09:15 09/26/19 09:15 Labs: Lab Results 09/26/19 09/26/19 Range/Units 09:15 09:15 WBC 10.3 (4.5-11.0) X10^3/uL RBC 4.70 (4.0-5.2) X10^6/uL Hgb 13.6 (12.0-16.0) g/dL Hct 40.5 (36-46) % MCV 86.2 (80-100) fL MCH 28.9 (26-34) PG MCHC 33.5 (30-36) % RDW 14.2 (11.6-14.8) % Plt Count 260 (150-400) X10^3/uL Neut % (Auto) 82.5 H (50-75) % Lymph % (Auto) 10.3 L (25-40) % [place] % (Auto) 6.8 (3-14) % Eos % (Auto) 0.2 L (2-4) % Baso % (Auto) 0.2 (0-2) % Neut # (Auto) 8500 H (8378-3445) /uL Lymph # (Auto) 1100 (6814-1464) /uL [place] # (Auto) 700 (0-900) /uL Eos # (Auto) 0 (0-450) /uL Baso # (Auto) 0 (0-100) /uL Sodium 139 (137-145) mmol/L Potassium 3.6 (3.4-5.1) mmol/L Chloride 106 (98-107) mmol/L Carbon Dioxide 22 (22-32) mmol/L BUN 15 (7-17) mg/dL Creatinine 0.70 (0.52-1.04) mg/dL Estimated GFR > 60.0 (>60) mL/min BUN/Creatinine Ratio 21.4 (6-22) Glucose 106 H (70-100) mg/dL Calcium 8.9 (8.4-10.2) mg/dL Total Bilirubin 0.7 (0.2-1.3) mg/dL AST 36 (14-36) IU/L ALT 32 (<35) IU/L Alkaline Phosphatase 97 (38-126) U/L Total Protein 8.3 H (6.3-8.2) g/dL Albumin 4.8 (3.5-5.0) g/dL Globulin 3.5 (1.7-4.1) g/dL Albumin/Globulin Ratio 1.4 (1.0-2.8) MDM Narrative Medical decision making narrative: 34-year-old breast-feeding woman no other significant medical issues presented after 5 days of an upper respiratory infection getting worse with clinical signs and symptoms of a developing right lower lobe pneumonia. She is hydrated and feeling significantly better. Safe for home discharge. Will have her complete a 5 day course of azithromycin. Discharge Plan Departure Patient Disposition: Home Clinical Impression: Pneumonia Qualifiers: Pneumonia type: due to unspecified organism Laterality: right Lung location: lower lobe of lung Qualified Code(s): J18.9 - Pneumonia, unspecified organism Nausea & vomiting Qualifiers: Vomiting type: unspecified Vomiting Intractability: non-intractable Qualified Code(s): R11.2 - Nausea with vomiting, unspecified Discharge Date/Time: 09/26/19 11:52 Instructions: DI for Pneumonia -- Adult Activity Restrictions/Additional Instructions: Thank you for coming in today As your virus was healing, bacteria have taken advantage you in you have developed a right lower lobe pneumonia. You need to work on staying as hydrated as possible both to help your pneumonia heal and to make sure that your breast milk supply stays up. I will also send in a prescription for the azithromycin to treat the bacterial pneumonia and ondansetron to use for nausea If you feel like you are getting worse please feel free to return to the emergency department. I hope you feel better soon Prescriptions: New azithromycin 250 mg tablet See Rx Instructions .ROUTE .COMPLEX Qty: 6 RF: 0 ondansetron 8 mg tablet,disintegrating 8 mg PO Q12H PRN (Reason: nausea and vomiting) Qty: 14 RF: 0 No Action omeprazole 20 mg capsule,delayed release(DR/EC) 20 mg PO BID PRN (Reason: Acid Reflux) RF: 0 PNV cmb#95-ferrous fumarate-FA [] 28 mg iron- 800 mcg Tablet 1 tab PO DAILY RF: 0
[2019-09-26 09:22] LABS: Add Manual Diff / Slide Review NO; Basophils Absolute Auto 0 /uL (0-100); Basophils Percent Auto 0.2 % (0-2); Eosinophils Absolute Auto 0 /uL (0-450); Eosinophils Percent Auto 0.2 % (2-4); Hematocrit 40.5 % (36-46); Hemoglobin 13.6 g/dL (12.0-16.0); Lymphocytes Absolute Auto 1100 /uL (1100-4500); Lymphocytes Percent Auto 10.3 % (25-40); Mean Corpuscular HGB Conc 33.5 % (30-36); Mean Corpuscular Hemoglobin 28.9 PG (26-34); Mean Corpuscular Volume 86.2 fL (80-100); Monocytes Absolute Auto 700 /uL (0-900); Monocytes Percent Auto 6.8 % (3-14); Neutrophils Absolute Auto 8500 /uL (1500-7000); Neutrophils Percent Auto 82.5 % (50-75); Platelet Count 260 X10^3/uL (150-400); Red Cell Distribution Width 14.2 % (11.6-14.8); White Blood Cell Count 10.3 X10^3/uL (4.5-11.0)
[2019-09-26] MEDS: ONDANSETRON 4 MG/2 ML INJ IV (09:30)
[2019-09-26] MEDS: SODIUM CHLORIDE 0.9% 1,000 ML 1000 ML IV ×2 (09:31→10:37)
[2019-09-26 09:35] LABS: Alanine Aminotransferase 32 IU/L (<35); Albumin 4.8 g/dL (3.5-5.0); Albumin Globulin Ratio 1.4 (1.0-2.8); Alkaline Phosphatase 97 U/L (38-126); Aspartate Aminotransferase 36 IU/L (14-36); BUN Creatinine Ratio 21.4 (6-22); Bilirubin Total 0.7 mg/dL (0.2-1.3); Blood Urea Nitrogen 15 mg/dL (7-17); Calcium 8.9 mg/dL (8.4-10.2); Carbon Dioxide 22 mmol/L (22-32); Chloride 106 mmol/L (98-107); Estimated Glomerular Filt Rate > 60.0 mL/min (>60); Globulin 3.5 g/dL (1.7-4.1); Glucose 106 mg/dL (70-100); HEMOLYSIS < 15 (0-50); Potassium 3.6 mmol/L (3.4-5.1); Sodium 139 mmol/L (137-145); Total Protein 8.3 g/dL (6.3-8.2)
[2019-09-26 10:00] VITALS: BP 125/77; PULSE 88
[2019-09-26 11:48] VITALS: BP 114/75; PULSE 91; RESP 18; TEMP 36.9; O2SAT 97
== END 2019-09-26 11:52 | disposition home or self-care (01) ==
PROVIDERS: Emergency Provider Emergency Medicine
DX: J18.9 Pneumonia, unspecified organism (principal); R11.2 Nausea with vomiting, unspecified
CPT/HCPCS: 36415; 80053; 85025; 96361; 96374; 99284; J2405

== ENCOUNTER 2021-06-26 07:11 | Emergency (ER) | payer OTHER, SELFPAY ==
[2018-01-10 19:23] VITALS: BMI 26.2
[2021-06-26 07:22] VITALS: BP 118/67; PULSE 77; RESP 16; TEMP 36.5; O2SAT 98; BMI 26.4
[2021-06-26 08:07] LABS: Add Manual Diff / Slide Review NO; Basophils Absolute Auto 0 /uL (0-100); Basophils Percent Auto 0.4 % (0-2); Eosinophils Absolute Auto 0 /uL (0-450); Eosinophils Percent Auto 0.4 % (2-4); Hematocrit 41.9 % (36-46); Hemoglobin 14.2 g/dL (12.0-16.0); Lymphocytes Absolute Auto 1400 /uL (1100-4500); Lymphocytes Percent Auto 13.4 % (25-40); Mean Corpuscular HGB Conc 33.8 % (30-36); Mean Corpuscular Hemoglobin 28.9 PG (26-34); Mean Corpuscular Volume 85.7 fL (80-100); Monocytes Absolute Auto 400 /uL (0-900); Monocytes Percent Auto 4.3 % (3-14); Neutrophils Absolute Auto 8300 /uL (1500-7000); Neutrophils Percent Auto 81.5 % (50-75); Platelet Count 267 X10^3/uL (150-400); Red Blood Cell Count 4.89 X10^6/uL (4.0-5.2); Red Cell Distribution Width 14.2 % (11.6-14.8); White Blood Cell Count 10.2 X10^3/uL (4.5-11.0)
--- NOTE | 2021-06-26 08:08 | ED.ABDPAIN ---
HPI - Abdominal Pain General Chief Complaint: Urogenital-Female Stated Complaint: rt side pain/vomiting x7 hours Time Seen by Provider: 06/26/21 07:55 Source: patient Mode of arrival: Ambulatory Limitations: no limitations History of Present Illness HPI narrative: This is a 36-year-old female comes in complaint right-sided flank pain that started last night is been going on for about 7 hours. Comes on a little bit to the front but is more painful in her right flank she has not had fevers but has chills. She denies headache, no nasal congestion, no cold or cough. No chest pain or shortness of breath. She has had nausea and vomiting overnight. She had a few episodes of loose diarrhea like stools. No black or bloody stools. She has had some dysuria, urgency and frequency. She denies any vaginal discharge or bleeding. Patient has had history of abdominal pain and vomiting in the past, she has a history of endometriosis, PCOS as well as IBS. She has had a tubal ligation 3 years ago. She has several allergies to amoxicillin, aspirin, codeine, Pyridium and tramadol. She denies tobacco, she does drink alcohol, she does use marijuana. She states the combination of Zofran and Benadryl is often helpful when she has episodes of vomiting. Related Data Home Medications Medication Instructions Recorded Confirmed omeprazole 20 mg capsule,delayed 20 mg PO BID PRN 03/04/19 03/04/19 release vit no.95-ferrous 1 tab PO DAILY 03/04/19 03/04/19 fumarate 28 mg-folic acid 800 mcg tablet () Previous Rx's Medication Instructions Recorded azithromycin 250 mg tablet See Rx Instructions .ROUTE 09/26/19 .COMPLEX #6 tab ondansetron 8 mg disintegrating 8 mg PO Q12H PRN #14 tab 09/26/19 tablet ondansetron 4 mg disintegrating 4 mg PO Q6H PRN #10 tab 06/26/21 tablet Allergies Allergy/AdvReac Type Severity Reaction Status Date / Time amoxicillin Allergy Intermediate Vomiting Verified 03/05/19 18:13 aspirin Allergy Mild Watery Eye Verified 03/05/19 18:13 codeine Allergy Mild Vomiting Verified 03/05/19 18:13 phenazopyridine Allergy Mild Swelling Verified 03/05/19 18:13 [From Pyridium] of Lip/Tongue/Throat tramadol AdvReac Vomiting Verified 03/05/19 18:13 Review of Systems Review of Systems ROS Unobtainable: All systems reviewed & are unremarkable except as noted in HPI and below Patient History Medical History (Updated 06/26/21 @ 10:05 by Nica Rogel DO) Endometriosis History of multiple miscarriages IBD (inflammatory bowel disease) PCOS (polycystic ovarian syndrome) Surgical History H/O section H/O laparoscopy H/O tubal ligation History of History of orthopedic surgery S/P appy Social History household members: spouse and children Smoking Status: Never smoker alcohol intake: never substance use type: marijuana Smoking Status: Never smoker alcohol intake frequency: 0-2 drinks per day Substance Use Type: marijuana Exam Narrative Exam Narrative: GENERAL: Alert and oriented x three, female in [id number] distress. HEENT: Head normocephalic, atraumatic, EOMI, pupils reactive, face symmetric, moist mucous membranes NECK: Supple, full range of motion CARDIOVASCULAR: Regular rate and rhythm without murmurs, rubs or gallops. RESPIRATORY: Breath sounds equal bilaterally, no wheezes rales or rhonchi. ABDOMEN: Soft, nontender. Hyperactive bowel sounds all 4 quadrants. No guarding or rebound, rigidity, no mass. Patient is actively vomiting while I am in the room. : Mild Right CVA tenderness, no left CVA tenderness. EXTREMITIES: Normal range of motion, no clubbing or edema. Neurovascularly intact NEUROLOGICAL: Cranial nerves II through XII grossly intact. Moving all extremities SKIN: Warm, dry, no petechiae, no rashes or lesions. Initial Vital Signs Initial Vital Signs: Vital Signs Temperature 97.7 F 06/26/21 07:22 Pulse Rate 77 06/26/21 07:22 Respiratory Rate 16 06/26/21 07:22 Blood Pressure 118/67 06/26/21 07:22 Pulse Oximetry 98 06/26/21 07:22 Course Orders Ordered: ED Orders 06/26/21 11:56 Urine Microscopic Stat Discontinued Medications Diphenhydramine HCl (Diphenhydramine 50 Mg/Ml Vial) 25 mg IV NOW ONE Stop: 06/26/21 08:14 Last Admin: 06/26/21 08:24 Dose: 25 mg Documented by: SRIDEVI Diphenhydramine HCl (Diphenhydramine 50 Mg/Ml Vial) 25 mg IV NOW ONE Stop: 06/26/21 10:04 Last Admin: 06/26/21 10:27 Dose: 25 mg Documented by: MAINOR Haloperidol (Haloperidol 5 Mg/Ml Vial) 5 mg IV NOW ONE Stop: 06/26/21 10:04 Last Admin: 06/26/21 10:27 Dose: 5 mg Documented by: MAINOR Sodium Chloride (Normal Saline 0.9%) 1,000 mls @ 1,000 mls/hr IV BOLUS ONE Stop: 06/26/21 08:54 Last Infusion: 06/26/21 10:28 Dose: 0 mls/hr Documented by: Admin: 06/26/21 08:15 Dose: 1,000 mls/hr Documented by: SRIDEVI Sodium Chloride (Normal Saline 0.9%) 1,000 mls @ 1,000 mls/hr IV BOLUS ONE Stop: 06/26/21 11:27 Last Infusion: 06/26/21 12:20 Dose: 0 mls/hr Documented by: Admin: 06/26/21 10:29 Dose: 1,000 mls/hr Documented by: MAINOR Ketorolac Tromethamine (Ketorolac 30 Mg/Ml Vial) 30 mg IV NOW ONE Stop: 06/26/21 08:14 Last Admin: 06/26/21 08:25 Dose: 30 mg Documented by: SRIDEVI Lorazepam (Lorazepam 2 Mg/Ml Inj) 0.5 mg IV NOW ONE Stop: 06/26/21 08:57 Last Admin: 06/26/21 09:14 Dose: 0.5 mg Documented by: MAINOR Ondansetron HCl (Ondansetron 4 Mg/2 Ml Inj) 4 mg IV NOW ONE Stop: 06/26/21 07:56 Last Admin: 06/26/21 08:15 Dose: 4 mg Documented by: SRIDEVI Reevaluation(s) Reevaluation #1: Patient had some decrease in or vomiting but was still nauseated after Zofran, Benadryl Ativan. She then started to dry heaving small of emesis again. Labs and CT so far negative. We are still waiting for urine sample. Time: 10:04 Reevaluation #2: Patient feels much better. She has not had any more vomiting. Her nausea has improved significantly. She is not having abdominal pain. We reviewed her findings. She has some hematuria she has phos is start her period in the next week. She has an ovarian cyst but this is on the wrong side for her pain which was on the right flank. No other clear changes. We discussed hyperemesis cannabis which she states she has looked into but does not believe this is the case. Time: 12:21 Vital Signs Vital signs: Vital Signs - 8 hr 06/26/21 11:28 06/26/21 11:30 06/26/21 11:31 Pulse Rate 75 73 91 H Blood Pressure 103/54 L Pulse Oximetry 98 99 99 06/26/21 12:00 Pulse Rate 79 Blood Pressure Pulse Oximetry 98 MDM - Abdominal Pain Lab Data Result diagrams: 06/26/21 07:45 06/26/21 07:50 Labs: Lab Results 06/26/21 06/26/21 06/26/21 Range/Units 07:45 07:50 11:56 WBC 10.2 (4.5-11.0) X10^3/uL RBC 4.89 (4.0-5.2) X10^6/uL Hgb 14.2 (12.0-16.0) g/dL Hct 41.9 (36-46) % MCV 85.7 (80-100) fL MCH 28.9 (26-34) PG MCHC 33.8 (30-36) % RDW 14.2 (11.6-14.8) % Plt Count 267 (150-400) X10^3/uL Neut % (Auto) 81.5 H (50-75) % Lymph % (Auto) 13.4 L (25-40) % [place] % (Auto) 4.3 (3-14) % Eos % (Auto) 0.4 L (2-4) % Baso % (Auto) 0.4 (0-2) % Neut # (Auto) 8300 H (5863-3380) /uL Lymph # (Auto) 1400 (1451-8614) /uL [place] # (Auto) 400 (0-900) /uL Eos # (Auto) 0 (0-450) /uL Baso # (Auto) 0 (0-100) /uL Sodium 139 (137-145) mmol/L Potassium 3.8 (3.4-5.1) mmol/L Chloride 104 (98-107) mmol/L Carbon Dioxide 22 (22-32) mmol/L BUN 13 (7-17) mg/dL Creatinine 0.76 (0.52-1.04) mg/dL Estimated GFR > 60.0 (>60) mL/min BUN/Creatinine Ratio 17.1 (6-22) Glucose 147 H (70-100) mg/dL Calcium 9.9 (8.4-10.2) mg/dL Total Bilirubin 1.0 (0.2-1.3) mg/dL AST 33 (14-36) IU/L ALT 24 (<35) IU/L Alkaline Phosphatase 75 (38-126) U/L Total Protein 8.7 H (6.3-8.2) g/dL Albumin 5.2 H (3.5-5.0) g/dL Globulin 3.5 (1.7-4.1) g/dL Albumin/Globulin Ratio 1.5 (1.0-2.8) Lipase 159 (23-300) U/L Urine RBC 0-1/hpf (0-5/HPF) Urine WBC 1-5/hpf (0-5/HPF) Ur Squamous Epith Cells 0-1 /hpf (0-5/HPF) Urine Bacteria Few (2-10) H (None) Urine Mucus 2+ H (Negative) Ur Culture Indicated? Cult not indicated Point of care testing: Point of Care Testing Test Results Negative Urine Dip Bedside Urine Glucose Negative Bedside Urine Bilirubin - Negative Bedside Urine Ketone +++ 80 Urine Specific [place] 1.030 Bedside Urine Occult Blood + Bedside Urine pH 6.0 Bedside Urine Protein + 30 Bedside Urine Urobilinogen - Negative Bedside Urine Nitrite - Negative Bedside Urine Leukocytes - Negative Esterase Imaging Data CT scan - abdomen/pelvis: Radiologist's Impression: [address] [address] [address] Scan Report Signed Patient: Sepideh Scott MR#: [id number] : 1985 Acct:[id number] Age/Sex: 36 / F Date of Service: 06/26/21 Loc: ED Accession Number: [id number] ?? Procedure: CT kidney ureter bladder (KUB) Ordering Provider: Nica Rogel D.O. PROCEDURE:? CT KIDNEY URETER BLADDER (KUB) ? INDICATIONS:? right flank pain, vomiting ? TECHNIQUE:? Axial sections were acquired from the lung bases to the pubic symphysis.? Coronal and sagittal reformats were performed.? For radiation dose reduction, the following was used: ?automated exposure control, adjustment of mA and/or kV according to patient size.? ? COMPARISON:? [facility], CT, CT ABDOMEN PELVIS W CON, 03/05/2019, 18:49. ? FINDINGS:? Image quality:? Excellent.? ? Lung bases:? Unremarkable.? ? Heart:? No significant findings. ? URINARY: Right Kidney: ? No stones or hydronephrosis.? Right Ureter:? No hydroureter.? ? Left Kidney: ? No stones or hydronephrosis. Left Ureter:? No hydroureter.? ? Bladder:? Not well distended. No stones. ? ? ? ABDOMEN: Liver:? Unremarkable.? ? Gallbladder:? Unremarkable.? ? Biliary ducts:? Unremarkable.? ? Pancreas:? Unremarkable.? ? Spleen:? Unremarkable.? ? Adrenal Glands:? Unremarkable.? ? ? Stomach and Bowel:? Trace hiatal hernia.? No evidence of intestinal obstruction.? Descending/sigmoid diverticulosis.? Cecal suture material, suggesting prior appendectomy. Peritoneum:? No abnormal intraperitoneal fluid.? No free air.? ? Ventral Wall: ? No hernia.? Abdominal Nodes:? No enlarged retroperitoneal or mesenteric lymph nodes.? Vessels:? Aorta and inferior vena cava are normal in size.? ? PELVIS: Pelvic Organs:? 1.5 cm hypoattenuating lesion in the left adnexa, likely representing an ovarian cyst.? ? Pelvic Nodes: Unremarkable. Miscellaneous: No inguinal hernias are seen. ? ? ? Bones:? Unremarkable. ? IMPRESSION:? ? 1. No significant abnormality. ? ? Dictated by: Dipak Poole M.D. on 06/26/2021 at 8:42 ? ? Approved by: Dipak Poole M.D. on 06/26/2021 at 8:50?? MDM Narrative Medical decision making narrative: 36-year-old female with right flank pain, vomiting for 7 hours. She has been afebrile. Her multiple medications her symptoms have improved particularly Haldol. Patient does use marijuana. She states she has looked into it that this could cause her symptoms but states she does not believe it does. Her CT, labs and urine do not show any other clear causes she has some hematuria but no signs of kidney stone on exam. She is did due to start her menses this coming week. Patient does not have any other clear signs of UTI or urinary infection. She feels much better at this time her pain has resolved and plan for return if worsening symptoms. She does have a 1.5 cm left ovarian cyst but this on the left side her pain was on the right so seems unlikely cause of her symptoms. Discharge Plan Departure Patient Disposition: Home Clinical Impression: Vomiting, Abdominal pain, Ovarian cyst Instructions: DI for Vomiting -- Adult Activity Restrictions/Additional Instructions: Follow-up if your symptoms are not improving over the next 1-2 days. Your imaging does show a left ovarian cyst but no other major changes. Your labs and imaging otherwise do not show any major changes. Prescription for Zofran was sent to [facility] in [place]. For worsening symptoms, persistent vomiting, black or bloody stools, lightheadedness or passing out, new chest pain or shortness of breath, fevers or other new or concerning symptoms. Prescriptions: New ondansetron 4 mg tablet,disintegrating 4 mg PO Q6H PRN (Reason: nausea and vomiting) Qty: 10 0RF No Action omeprazole 20 mg capsule,delayed release(DR/EC) 20 mg PO BID PRN (Reason: Acid Reflux) 0RF PNV cmb#95-ferrous fumarate-FA [] 28 mg iron- 800 mcg Tablet 1 tab PO DAILY 0RF azithromycin 250 mg tablet See Rx Instructions .ROUTE .COMPLEX Qty: 6 0RF Rx Instructions: take 500 mg today (day 1), then 250 mg for 4 days (days 2-5) ondansetron 8 mg tablet,disintegrating 8 mg PO Q12H PRN (Reason: nausea and vomiting) Qty: 14 0RF
[2021-06-26] MEDS: ONDANSETRON 4 MG/2 ML INJ IV (08:15)
[2021-06-26] MEDS: SODIUM CHLORIDE 0.9% 1,000 ML 1000 ML IV ×2 (08:15→10:29)
[2021-06-26] MEDS: diphenhydrAMINE 50 MG/ML VIAL 25 MG IV ×2 (08:24→10:27)
[2021-06-26] MEDS: KETOROLAC 30 MG/ML VIAL IV (08:25)
[2021-06-26 08:27] LABS: Alanine Aminotransferase 24 IU/L (<35); Albumin 5.2 g/dL (3.5-5.0); Albumin Globulin Ratio 1.5 (1.0-2.8); Alkaline Phosphatase 75 U/L (38-126); Aspartate Aminotransferase 33 IU/L (14-36); BUN Creatinine Ratio 17.1 (6-22); Blood Urea Nitrogen 13 mg/dL (7-17); Calcium 9.9 mg/dL (8.4-10.2); Carbon Dioxide 22 mmol/L (22-32); Chloride 104 mmol/L (98-107); Estimated Glomerular Filt Rate > 60.0 mL/min (>60); Globulin 3.5 g/dL (1.7-4.1); Glucose 147 mg/dL (70-100); HEMOLYSIS < 15 (0-50); Lipase 159 U/L (23-300); Potassium 3.8 mmol/L (3.4-5.1); Sodium 139 mmol/L (137-145); Total Protein 8.7 g/dL (6.3-8.2)
--- NOTE | 2021-06-26 08:34 | DI.CT.S_ITS ---
PROCEDURE: CT KIDNEY URETER BLADDER (KUB) INDICATIONS: right flank pain, vomiting TECHNIQUE: Axial sections were acquired from the lung bases to the pubic symphysis. Coronal and sagittal reformats were performed. For radiation dose reduction, the following was used: automated exposure control, adjustment of mA and/or kV according to patient size. COMPARISON: [facility], CT, CT ABDOMEN PELVIS W CON, 03/05/2019, 18:49. FINDINGS: Image quality: Excellent. Lung bases: Unremarkable. Heart: No significant findings. URINARY: Right Kidney: No stones or hydronephrosis. Right Ureter: No hydroureter. Left Kidney: No stones or hydronephrosis. Left Ureter: No hydroureter. Bladder: Not well distended. No stones. ABDOMEN: Liver: Unremarkable. Gallbladder: Unremarkable. Biliary ducts: Unremarkable. Pancreas: Unremarkable. Spleen: Unremarkable. Adrenal Glands: Unremarkable. Stomach and Bowel: Trace hiatal hernia. No evidence of intestinal obstruction. Descending/sigmoid diverticulosis. Cecal suture material, suggesting prior appendectomy. Peritoneum: No abnormal intraperitoneal fluid. No free air. Ventral Wall: No hernia. Abdominal Nodes: No enlarged retroperitoneal or mesenteric lymph nodes. Vessels: Aorta and inferior vena cava are normal in size. PELVIS: Pelvic Organs: 1.5 cm hypoattenuating lesion in the left adnexa, likely representing an ovarian cyst. Pelvic Nodes: Unremarkable. Miscellaneous: No inguinal hernias are seen. Bones: Unremarkable. IMPRESSION: 1. No significant abnormality. Dictated by: Dipak Poole M.D. on 06/26/2021 at 8:42 Approved by: Dipak Poole M.D. on 06/26/2021 at 8:50
[2021-06-26] MEDS: LORazepam 2 MG/ML INJ 0.5 MG IV (09:14)
[2021-06-26] MEDS: HALOPERIDOL 5 MG/ML VIAL IV (10:27)
[2021-06-26 10:30] VITALS: BP 119/68; PULSE 91; RESP 18; O2SAT 99
--- NOTE | 2021-06-26 11:23 | PC.NURSE ---
flank pain, nausea, and vomiting today
[2021-06-26 11:28] VITALS: PULSE 75; O2SAT 98
[2021-06-26 11:30] VITALS: PULSE 73; O2SAT 99
[2021-06-26 11:31] VITALS: BP 103/54; PULSE 91; O2SAT 99
[2021-06-26 12:00] VITALS: PULSE 79; O2SAT 98
[2021-06-26 12:06] LABS: Bacteria Urine Few (2-10); Culture Indicated Urine Cult Not Indicated; Mucus Urine 2+ (Negative); RBC Urine 0-1/HPF (0-5/HPF); Squamous Epithelial Cell Urine 0-1 /HPF (0-5/HPF); WBC Urine 1-5/HPF (0-5/HPF)
== END 2021-06-26 12:27 | disposition home or self-care (01) ==
PROVIDERS: Emergency Provider Emergency Medicine
DX: R11.2 Nausea with vomiting, unspecified (principal); N83.202 Unspecified ovarian cyst, left side; R10.9 Unspecified abdominal pain
CPT/HCPCS: 36415; 74176; 80053; 81003; 81015; 81025; 83690; 85025; 96361; 96374; 96375; 96376; 99284; J1200; J1630; J1885; J2060; J2405

== ENCOUNTER 2022-12-03 08:34 | Emergency (ER) | payer OTHER, SELFPAY ==
[2018-01-10 19:23] VITALS: BMI 26.2
[2022-12-03] VITALS (10 sets, daily range): BP systolic 95–128; BP diastolic 48–78; PULSE 66–86; RESP 18; TEMP 36.4; O2SAT 96–100; BMI 27.2
--- NOTE | 2022-12-03 08:45 | ED_ITS ---
HPI - General Adult General Chief complaint: Nausea/Vomiting/Diarrhea Stated complaint: V 5 hours Time Seen by Provider: 12/03/22 08:41 Source: patient Mode of arrival: Ambulatory Limitations: no limitations History of Present Illness HPI narrative: Patient is a 37-year-old female. Has a history of endometriosis and PCOS. Does not take any specific medications for these. Is here for evaluation approximately 5 hours of abdominal pain and vomiting. She states she started her menstrual cycle and then started having the vomiting abdominal pain. This does happened to her sometimes when she starts her menstrual cycles. She is not on any control. No fevers. She states she is out of her nausea medication. Related Data Home Medications Medication Instructions Recorded Confirmed omeprazole 20 mg capsule,delayed 20 mg PO BID PRN Acid Reflux 03/04/19 03/04/19 release vit no.95-ferrous 1 tab PO DAILY 03/04/19 03/04/19 fumarate 28 mg-folic acid 800 mcg tablet () Previous Rx's Medication Instructions Recorded azithromycin 250 mg tablet See Rx Instructions PO .COMPLEX #6 09/26/19 tabs ondansetron 8 mg disintegrating 8 mg PO Q12H PRN nausea and 09/26/19 tablet vomiting #14 tabs ondansetron 4 mg disintegrating 4 mg PO Q6H PRN nausea and 06/26/21 tablet vomiting #10 tabs ondansetron 4 mg disintegrating 4 mg PO Q6H PRN nausea and 12/03/22 tablet vomiting #20 tabs Allergies Allergy/AdvReac Type Severity Reaction Status Date / Time amoxicillin Allergy Intermediate Vomiting Verified 12/03/22 08:46 aspirin Allergy Mild Watery Eye Verified 12/03/22 08:46 codeine Allergy Mild Vomiting Verified 12/03/22 08:46 phenazopyridine Allergy Mild Swelling Verified 12/03/22 08:46 [From Pyridium] of Lip/Tongue/Throat tramadol AdvReac Vomiting Verified 12/03/22 08:46 Review of Systems Constitutional Constitutional: Reports system reviewed and no additional complaints, except as documented Gastrointestinal Gastrointestinal: Reports system reviewed and no additional complaints, except as documented Genitourinary Genitourinary: Reports system reviewed and no additional complaints, except as documented Integumentary/Breasts Skin/Breast: Reports system reviewed and no additional complaints, except as documented Patient History Medical History (Updated 12/03/22 @ 12:27 by Ronal Mayfield DO) Endometriosis History of multiple miscarriages IBD (inflammatory bowel disease) PCOS (polycystic ovarian syndrome) Surgical History H/O section H/O laparoscopy H/O tubal ligation History of History of orthopedic surgery S/P appy Social History household members: spouse and children Smoking Status: Never smoker alcohol intake: never substance use type: marijuana Smoking Status: Never smoker alcohol intake frequency: 0-2 drinks per day Substance Use Type: marijuana Exam Initial Vital Signs Initial Vital Signs: Vital Signs Temperature 97.5 F L 12/03/22 08:48 Pulse Rate 71 12/03/22 08:48 Respiratory Rate 18 12/03/22 08:48 Blood Pressure 128/63 12/03/22 08:48 Pulse Oximetry 100 12/03/22 08:48 Oxygen Delivery Method Room Air 12/03/22 08:48 Const General: cooperative Resp Effort & Inspection: normal respiratory effort Cardio Rate: regular rate GI Inspection: normal to inspection and non-distended Neuro General: patient alert, patient awake and moves all extremities Course Orders Ordered: Discontinued Medications Diphenhydramine HCl (Diphenhydramine 50 Mg/Ml Vial) 25 mg IV NOW ONE Stop: 12/03/22 10:14 Last Admin: 12/03/22 10:18 Dose: 25 mg Documented By: AMBERLY Sodium Chloride (Normal Saline 0.9%) 1,000 mls @ 1,000 mls/hr IV BOLUS ONE Stop: 12/03/22 10:35 Last Infusion: 12/03/22 10:57 Dose: 0 mls/hr Documented By: Admin: 12/03/22 09:41 Dose: 1,000 mls/hr Documented By: AMBERLY Lorazepam (Lorazepam 2 Mg/Ml Inj) 1 mg IV NOW ONE Stop: 12/03/22 11:07 Last Admin: 12/03/22 11:12 Dose: 1 mg Documented By: AMBERLY Metoclopramide HCl (Metoclopramide 10 Mg/2 Ml Inj) 10 mg IV NOW ONE Stop: 12/03/22 09:26 Last Admin: 12/03/22 09:40 Dose: 10 mg Documented By: AMBERLY Ondansetron HCl (Ondansetron 4 Mg Odt) 4 mg SL NOW ONE Stop: 12/03/22 08:44 Last Admin: 12/03/22 08:47 Dose: 4 mg Documented By: AT Vital Signs Vital signs: Vital Signs - 8 hr 12/03/22 08:48 12/03/22 09:11 12/03/22 09:18 Temperature 97.5 F L Pulse Rate 71 71 Respiratory Rate 18 Blood Pressure 128/63 121/78 Pulse Oximetry 100 100 Oxygen Delivery Method Room Air 12/03/22 09:18 12/03/22 09:30 12/03/22 09:30 Temperature Pulse Rate 69 69 Respiratory Rate Blood Pressure 119/73 Pulse Oximetry 97 100 Oxygen Delivery Method 12/03/22 10:00 12/03/22 10:01 12/03/22 10:01 Temperature Pulse Rate 74 66 Respiratory Rate Blood Pressure 95/48 L Pulse Oximetry 100 99 Oxygen Delivery Method Room Air 12/03/22 10:30 12/03/22 10:30 12/03/22 11:00 Temperature Pulse Rate 86 Respiratory Rate Blood Pressure 99/69 111/51 L Pulse Oximetry 100 Oxygen Delivery Method Room Air 12/03/22 11:00 12/03/22 11:30 12/03/22 11:30 Temperature Pulse Rate 73 82 Respiratory Rate Blood Pressure 114/75 Pulse Oximetry 96 98 Oxygen Delivery Method Room Air Room Air Medical Decision Making MDM Narrative Medical decision making narrative: Patient states that she is starting to feel somewhat better. She states normally Zofran in the [employer] work for her at home. He is tolerating oral intake. I do feel that we can hold on further workup for now to include any radiologic studies. Will refill her Benadryl. She was given return precautions. She expressed understanding and agreement. Discharge Plan Departure Patient Disposition: Home Clinical Impression: Nausea & vomiting, Abdominal pain Instructions: DI for Abdominal Pain-Adult, Nausea and Vomiting-Adult Activity Restrictions/Additional Instructions: I do recommend that you try to increase your fluid intake by drinking small amounts more frequently. Use the nausea medication as needed. Return to the emergency department for new or worsening symptoms. Prescriptions: New ondansetron 4 mg tablet,disintegrating 4 mg PO Q6H PRN (Reason: nausea and vomiting) Qty: 20 0RF No Action omeprazole 20 mg capsule,delayed release(DR/EC) 20 mg PO BID PRN (Reason: Acid Reflux) PNV cmb#95-ferrous fumarate-FA [] 28 mg iron- 800 mcg Tablet 1 tab PO DAILY azithromycin 250 mg tablet See Rx Instructions .ROUTE .COMPLEX Qty: 6 0RF Rx Instructions: take 500 mg today (day 1), then 250 mg for 4 days (days 2-5) ondansetron 8 mg tablet,disintegrating 8 mg PO Q12H PRN (Reason: nausea and vomiting) Qty: 14 0RF ondansetron 4 mg tablet,disintegrating 4 mg PO Q6H PRN (Reason: nausea and vomiting) Qty: 10 0RF Referrals: ProviderEnzo [Primary Care Provider] - Stand Alone Forms: Patient Portal/API
[2022-12-03] MEDS: ONDANSETRON 4 MG ODT SL (08:47)
[2022-12-03] MEDS: METOCLOPRAMIDE 10 MG/2 ML INJ IV (09:40)
[2022-12-03] MEDS: SODIUM CHLORIDE 0.9% 1,000 ML 1000 ML IV (09:41)
[2022-12-03] MEDS: diphenhydrAMINE 50 MG/ML VIAL 25 MG IV (10:18)
--- NOTE | 2022-12-03 10:24 | PC.NURSE ---
Patient reported itchiness and increased anxiety post metoclopramide, Dr. Mayfield notified and new orders received. Pt breathing even and unlabored, handling secretions, no rash/swelling/discolorations noted.
--- NOTE | 2022-12-03 10:47 | PC.NURSE ---
Pt reports itchiness and anxiety has resolved, vomitting has returned.
[2022-12-03] MEDS: LORazepam 2 MG/ML INJ 1 MG IV (11:12)
--- NOTE | 2022-12-03 11:59 | PC.NURSE ---
PT reports a resolving of their vomiting. PO challenge initiated. Pt provided water with education to take slow small sips.
== END 2022-12-03 12:31 | disposition home or self-care (01) ==
PROVIDERS: Emergency Provider Emergency Medicine
DX: R10.9 Unspecified abdominal pain (principal); R11.2 Nausea with vomiting, unspecified
CPT/HCPCS: 36415; 96361; 96374; 96375; 99284; J1200; J2060; J2765

== ENCOUNTER 2023-02-23 11:00 | Emergency (ER) | payer OTHER, SELFPAY ==
[2018-01-10 19:23] VITALS: BMI 26.2
[2023-02-23] VITALS (8 sets, daily range): BP systolic 112–122; BP diastolic 60–76; PULSE 80–114; RESP 16; TEMP 36.6; O2SAT 97–100; BMI 28.3
[2023-02-23] MEDS: ONDANSETRON 4 MG/2 ML INJ IV ×2 (11:34→15:42)
[2023-02-23 11:45] LABS: Add Manual Diff / Slide Review NO; Basophils Absolute Auto 0 /uL (0-100); Basophils Percent Auto 0.5 % (0-2); Eosinophils Absolute Auto 0 /uL (0-450); Eosinophils Percent Auto 0.4 % (2-4); Hemoglobin 14.4 g/dL (12.0-16.0); Lymphocytes Absolute Auto 1000 /uL (1100-4500); Lymphocytes Percent Auto 11.3 % (25-40); Mean Corpuscular HGB Conc 33.6 % (30-36); Mean Corpuscular Hemoglobin 28.3 PG (26-34); Mean Corpuscular Volume 84.4 fL (80-100); Monocytes Absolute Auto 300 /uL (0-900); Neutrophils Absolute Auto 7200 /uL (1500-7000); Neutrophils Percent Auto 83.8 % (50-75); Platelet Count 292 X10^3/uL (150-400); Red Cell Distribution Width 14.6 % (11.6-14.8); White Blood Cell Count 8.6 X10^3/uL (4.5-11.0)
[2023-02-23 12:01] LABS: Alanine Aminotransferase 23 IU/L (<35); Albumin Globulin Ratio 1.3 (1.0-2.8); Alkaline Phosphatase 81 U/L (38-126); Aspartate Aminotransferase 31 IU/L (14-36); BUN Creatinine Ratio 20.5 (6-22); Bilirubin Total 0.9 mg/dL (0.2-1.3); Blood Urea Nitrogen 17 mg/dL (7-17); Calcium 9.5 mg/dL (8.4-10.2); Carbon Dioxide 27 mmol/L (22-32); Chloride 99 mmol/L (98-107); Estimated Glomerular Filt Rate > 60 mL/min (>60); Glucose 116 mg/dL (70-100); HEMOLYSIS 23 (0-50); Lipase 99 U/L (23-300); Potassium 4.1 mmol/L (3.4-5.1); Sodium 137 mmol/L (137-145)
[2023-02-23 12:03] LABS: Bacteria Urine None Seen; Culture Indicated Urine Cult Not Indicated; Mucus Urine 1+ (Negative); RBC Urine 1-5/HPF (0-5/HPF); Squamous Epithelial Cell Urine None Seen (0-5/HPF); WBC Urine 0-1/HPF (0-5/HPF)
--- NOTE | 2023-02-23 16:53 | ED.ABDPAIN ---
HPI - Abdominal Pain General Chief Complaint: Abdominal Pain Stated Complaint: Poss hernia, ABD pain, vomiting Time Seen by Provider: 02/23/23 16:28 Source: patient Mode of arrival: Wheelchair Limitations: no limitations History of Present Illness HPI narrative: 37-year-old female with history of IBS who presents with complaint of possible umbilical hernia. Patient states she had significant increased pain in the umbilical area and it was pushed out. She states it is gone back in over the last couple hours but she was not able to tolerate anything by mouth for the last several days. She is had nausea and vomiting he is time she tries to take anything orally. She did have a very small bowel movement today which he describes as small sebastien. Patient states pain is still present. No fevers. No chest pain, no shortness of breath, no passing out, no black or bloody stools, no dysuria urgency or frequency. She started her period today. She states this is not like her typical symptoms. She states she had an umbilical hernia in the past which was repaired. She is had prior , appendectomy. She is had prior shoulder surgery. States she has a as needed prescription for Zofran but no other daily medications. Multiple allergies to medications. No tobacco, occasional alcohol, occasional marijuana, no illicit. Related Data Home Medications Medication Instructions Recorded Confirmed omeprazole 20 mg capsule,delayed 20 mg PO BID PRN Acid Reflux 03/04/19 03/04/19 release vit no.95-ferrous 1 tab PO DAILY 03/04/19 03/04/19 fumarate 28 mg-folic acid 800 mcg tablet () Previous Rx's Medication Instructions Recorded azithromycin 250 mg tablet See Rx Instructions PO .COMPLEX #6 09/26/19 tabs ondansetron 8 mg disintegrating 8 mg PO Q12H PRN nausea and 09/26/19 tablet vomiting #14 tabs ondansetron 4 mg disintegrating 4 mg PO Q6H PRN nausea and 06/26/21 tablet vomiting #10 tabs ondansetron 4 mg disintegrating 4 mg PO Q6H PRN nausea and 12/03/22 tablet vomiting #20 tabs meloxicam 7.5 mg tablet 7.5 mg PO BID PRN pain #10 tabs 02/23/23 ondansetron 4 mg disintegrating 4 mg PO Q6H PRN nausea and 02/23/23 tablet vomiting #7 tabs Allergies Allergy/AdvReac Type Severity Reaction Status Date / Time amoxicillin Allergy Intermediate Vomiting Verified 02/23/23 11:19 aspirin Allergy Mild Watery Eye Verified 02/23/23 11:19 codeine Allergy Mild Vomiting Verified 02/23/23 11:19 phenazopyridine Allergy Mild Swelling Verified 02/23/23 11:19 [From Pyridium] of Lip/Tongue/Throat tramadol AdvReac Vomiting Verified 02/23/23 11:19 Review of Systems Review of Systems ROS Unobtainable: All systems reviewed & are unremarkable except as noted in HPI and below Patient History Medical History (Updated 02/23/23 @ 18:06 by Nica Rogel DO) Endometriosis History of multiple miscarriages IBD (inflammatory bowel disease) PCOS (polycystic ovarian syndrome) Surgical History H/O section H/O laparoscopy H/O tubal ligation History of History of orthopedic surgery S/P appy Social History household members: spouse and children Smoking Status: Never smoker alcohol intake: never substance use type: marijuana Smoking Status: Never smoker alcohol intake frequency: 0-2 drinks per day Substance Use Type: marijuana Exam Narrative Exam Narrative: GENERAL: Alert and oriented x three, female in mild distress. HEENT: Head normocephalic, atraumatic, EOMI, pupils reactive, face symmetric, moist mucous membranes NECK: Supple, full range of motion CARDIOVASCULAR: Regular rate and rhythm without murmurs, rubs or gallops. RESPIRATORY: Breath sounds equal bilaterally, no wheezes rales or rhonchi. ABDOMEN: Soft, positive for periumbilical tenderness. There is a small about 1-1/2 cm above the umbilicus is mildly tender. She does not have a large hernia appreciated. Normoactive bowel sounds all 4 quadrants. No guarding or rebound, rigidity, no mass : No CVA tenderness EXTREMITIES: Normal range of motion, no clubbing or edema. Neurovascularly intact NEUROLOGICAL: Cranial nerves II through XII grossly intact. Moving all extremities SKIN: Warm, dry, no petechiae, no rashes or lesions. Initial Vital Signs Initial Vital Signs: Vital Signs Temperature 98 F 02/23/23 11:15 Pulse Rate 99 H 02/23/23 11:15 Respiratory Rate 16 02/23/23 11:15 Blood Pressure 112/73 02/23/23 11:15 Pulse Oximetry 99 02/23/23 11:15 Oxygen Delivery Method Room Air 02/23/23 11:15 Course Orders Ordered: ED Orders 02/23/23 11:27 Urine Microscopic Stat 02/23/23 11:30 Complete Blood Count AUTO DIFF Stat Comprehensive Metabolic Panel Stat Lipase Stat 02/23/23 17:04 CT abdomen pelvis w con Stat Discontinued Medications Ketorolac Tromethamine (Ketorolac 30 Mg/Ml Vial) 15 mg IV NOW ONE Stop: 02/23/23 17:05 Last Admin: 02/23/23 17:14 Dose: 15 mg Documented By: MITZY Lorazepam (Lorazepam 2 Mg/Ml Inj) 0.5 mg IV NOW ONE Stop: 02/23/23 17:05 Last Admin: 02/23/23 17:14 Dose: 0.5 mg Documented By: MITZY Ondansetron HCl (Ondansetron 4 Mg Odt) 4 mg PO NOW PRN PRN Reason: Nausea And Vomiting Ondansetron HCl (Ondansetron 4 Mg/2 Ml Inj) 4 mg IV NOW PRN PRN Reason: Nausea And Vomiting Last Admin: 02/23/23 11:34 Dose: 4 mg Documented By: Ondansetron HCl (Ondansetron 4 Mg/2 Ml Inj) 4 mg IV NOW ONE Stop: 02/23/23 15:31 Last Admin: 02/23/23 15:42 Dose: 4 mg Documented By: KARY Vital Signs Vital signs: Vital Signs - 8 hr 02/23/23 16:15 02/23/23 16:16 02/23/23 16:16 Pulse Rate 110 H 107 H Blood Pressure 122/67 Pulse Oximetry 98 100 02/23/23 16:30 02/23/23 16:30 02/23/23 17:00 Pulse Rate 114 H Blood Pressure 115/62 119/60 Pulse Oximetry 98 02/23/23 17:00 02/23/23 17:30 02/23/23 18:00 Pulse Rate 112 H 90 94 H Blood Pressure Pulse Oximetry 98 98 98 02/23/23 18:30 Pulse Rate 80 Blood Pressure 118/76 Pulse Oximetry 97 MDM - Abdominal Pain Lab Data 02/23/23 11:30 02/23/23 11:30 Labs: Lab Results 02/23/23 02/23/23 02/23/23 Range/Units 11:27 11:30 11:30 WBC 8.6 (4.5-11.0) X10^3/uL RBC 5.10 (4.0-5.2) X10^6/uL Hgb 14.4 (12.0-16.0) g/dL Hct 43.0 (36-46) % MCV 84.4 (80-100) fL MCH 28.3 (26-34) PG MCHC 33.6 (30-36) % RDW 14.6 (11.6-14.8) % Plt Count 292 (150-400) X10^3/uL Neut % (Auto) 83.8 H (50-75) % Lymph % (Auto) 11.3 L (25-40) % Lynn % (Auto) 4.0 (3-14) % Eos % (Auto) 0.4 L (2-4) % Baso % (Auto) 0.5 (0-2) % Neut # (Auto) 7200 H (3069-4759) /uL Lymph # (Auto) 1000 L (0226-1566) /uL Lynn # (Auto) 300 (0-900) /uL Eos # (Auto) 0 (0-450) /uL Baso # (Auto) 0 (0-100) /uL Sodium 137 (137-145) mmol/L Potassium 4.1 (3.4-5.1) mmol/L Chloride 99 (98-107) mmol/L Carbon Dioxide 27 (22-32) mmol/L BUN 17 (7-17) mg/dL Creatinine 0.83 (0.52-1.04) mg/dL Estimated GFR > 60 (>60) mL/min BUN/Creatinine Ratio 20.5 (6-22) Glucose 116 H (70-100) mg/dL Calcium 9.5 (8.4-10.2) mg/dL Total Bilirubin 0.9 (0.2-1.3) mg/dL AST 31 (14-36) IU/L ALT 23 (<35) IU/L Alkaline Phosphatase 81 (38-126) U/L Total Protein 9.0 H (6.3-8.2) g/dL Albumin 5.0 (3.5-5.0) g/dL Globulin 4.0 (1.7-4.1) g/dL Albumin/Globulin Ratio 1.3 (1.0-2.8) Lipase 99 (23-300) U/L Urine RBC 1-5/hpf (0-5/HPF) Urine WBC 0-1/hpf (0-5/HPF) Ur Squamous Epith Cells None seen (0-5/HPF) Urine Bacteria None seen (None) Urine Mucus 1+ H (Negative) Ur Culture Indicated? Cult not indicated Point of care testing: Point of Care Testing Test Results Negative Urine Dip Bedside Urine Glucose Negative Bedside Urine Bilirubin - Negative Bedside Urine Ketone +++ 80 Urine Specific [place] 1.030 Bedside Urine Occult Blood ++ Bedside Urine pH 6.0 Bedside Urine Protein +/- 15 Bedside Urine Urobilinogen - Negative Bedside Urine Nitrite - Negative Bedside Urine Leukocytes - Negative Esterase Imaging Data CT scan - abdomen/pelvis: Radiologist's Impression: Close Abdomen/Pelvis CT (Signed) Migel Morse - 02/23/23 Abdomen/Pelvis CT (Signed) Dipak Poole - 06/26/21 Abdomen/Pelvis CT (Signed) Laurent Etienne - 03/05/19 Abdomen Ultrasound (Signed) Prosper Kemp - 03/04/19 Abdomen Ultrasound (Signed) Bernabe Magaña - 06/26/18 Renal Ultrasound (Signed) Andrew Szymanski - 03/25/18 Ultrasound (Signed) Fili De La Garza - 02/24/18 Obstetrics Ultrasound (Signed) Olinda Conde - 02/06/18 Ultrasound (Signed) Rain Jones - 01/10/18 Abdomen Ultrasound (Signed) Rain Jones - 01/10/18 Launch?[address] [address] [address] Scan Report Signed Patient: Sepideh Scott MR#: [id number] : 1985 Acct:[id number] Age/Sex: 37 / F Date of Service: 02/23/23 Loc: ED Accession Number: [id number] ?? Procedure: CT abdomen pelvis w con Ordering Provider: Nica Rogel D.O. PROCEDURE:? CT ABDOMEN PELVIS W CON ? INDICATIONS:? umbilical hernia repair, n and vomiting, think hernia ? TECHNIQUE:? After the administration of intravenous contrast, axial sections acquired from the lung bases to the pubic symphysis.? Coronal and sagittal reformats were performed.? For radiation dose reduction, the following was used:? automated exposure control, adjustment of mA and/or kV according to patient size.? ? COMPARISON:? [facility], CT, CT ABDOMEN PELVIS W CON, 03/05/2019, 18:49. ? FINDINGS:? Image quality:? Excellent.? ? Lung bases:? Lung bases are clear.? Very small hiatal hernia. Heart:? No significant findings. ? ABDOMEN: Liver:? Liver is unremarkable in appearance without focal intrahepatic abnormalities. No intrahepatic or extrahepatic biliary ductal dilatation. Gallbladder:? Unremarkable Biliary ducts:? Unremarkable.? ? Pancreas: Homogeneous enhancement without focal lesions or pancreatic ductal dilatation.? No peripancreatic inflammation or organized fluid collections. Spleen:? No splenomegaly Adrenal Glands:? Unremarkable.? ? Kidneys and Ureters: Kidneys are symmetric in size and enhancement, and there is no obstructive uropathy.? No perinephric inflammatory changes. Ureters are normal in course and caliber.? ? Stomach and Bowel:? Stomach, small bowel loops, and colon are unremarkable.? Peritoneum:? No abnormal intraperitoneal fluid.? No free air.? ? Ventral Wall: ? No hernias.? Mild diastasis recti of the anterior abdominal wall.? This is noted near the level of the umbilicus.? Abdominal Nodes:? No retroperitoneal or mesenteric adenopathy by size criteria.? Vessels:? Aorta and inferior vena cava are normal in size.? ? PELVIS: Pelvic Organs:? Unremarkable.? ? Bladder:? Unremarkable.? ? Pelvic Nodes: No enlarged lymph nodes.? Miscellaneous: No hernias are seen. ? ? ? Bones: Visualized osseous structures appear intact without acute fracture or focal destructive lesion. No acute compression fractures of the imaged spine. ? ? IMPRESSION:? CT abdomen and pelvis without acute abnormalities. ? Mild diastasis recti of the ventral abdominal wall. ? Very small hiatal hernia. ? ? Dictated by: Migel Morse M.D. on 02/23/2023 at 17:53 ? ? Approved by: Migel Morse M.D. on 02/23/2023 at 17:57?? MDM Narrative Medical decision making narrative: This is a 37-year-old female who presents with concern for umbilical hernia. She has a small nodule palpable the might be a small fat containing but do not feel a large hernia. She does have little bit of diastasis recti. She states she is had nausea and vomiting she did have a bowel movement today although small. She states it was pushed out has since sort of gone back in in the last couple hours. Patient's labs do not show any major changes urine shows some blood but she states she is on her menses. No other signs of infection. CT abdomen pelvis shows diastasis recti but no hernia. Discussed follow-up with general surgery, antinausea medication and pain medication with return precautions. Discharge Plan Departure Patient Disposition: Home Clinical Impression: Diastasis recti Activity Restrictions/Additional Instructions: Please follow up with general surgery for recheck. Your CT shows diastasis recti but no active hernia at this moment. Call to set up an appointment. Please continue your home medication as prescribed. You may take Zofran 1 tablet every 6 hours as needed for nausea. You may take 1 tablet of meloxicam every 12 hours as needed for pain. Prescription sent to [facility] in [place]. Please return for new or worsening symptoms, persistent vomiting, if you are not able to have bowel movements or passed gas, worsening abdominal pain, back pain or flank pain, passing out or other new or concerning changes. Prescriptions: New ondansetron 4 mg tablet,disintegrating 4 mg PO Q6H PRN (Reason: nausea and vomiting) Qty: 7 0RF meloxicam 7.5 mg tablet 7.5 mg PO BID PRN (Reason: pain) Qty: 10 0RF No Action omeprazole 20 mg capsule,delayed release(DR/EC) 20 mg PO BID PRN (Reason: Acid Reflux) [facility] [] 28 mg iron- 800 mcg Tablet 1 tab PO DAILY azithromycin 250 mg tablet See Rx Instructions .ROUTE .COMPLEX Qty: 6 0RF Rx Instructions: take 500 mg today (day 1), then 250 mg for 4 days (days 2-5) ondansetron 8 mg tablet,disintegrating 8 mg PO Q12H PRN (Reason: nausea and vomiting) Qty: 14 0RF ondansetron 4 mg tablet,disintegrating 4 mg PO Q6H PRN (Reason: nausea and vomiting) Qty: 10 0RF ondansetron 4 mg tablet,disintegrating 4 mg PO Q6H PRN (Reason: nausea and vomiting) Qty: 20 0RF Referrals: Jeffy Ho MD [Physician] - Provider,Enzo TORRES [Primary Care Provider] - Stand Alone Forms: Patient Portal/API
--- NOTE | 2023-02-23 17:04 | DI.CT.S_ITS ---
PROCEDURE: CT ABDOMEN PELVIS W CON INDICATIONS: umbilical hernia repair, n and vomiting, think hernia TECHNIQUE: After the administration of intravenous contrast, axial sections acquired from the lung bases to the pubic symphysis. Coronal and sagittal reformats were performed. For radiation dose reduction, the following was used: automated exposure control, adjustment of mA and/or kV according to patient size. COMPARISON: [facility], CT, CT ABDOMEN PELVIS W CON, 03/05/2019, 18:49. FINDINGS: Image quality: Excellent. Lung bases: Lung bases are clear. Very small hiatal hernia. Heart: No significant findings. ABDOMEN: Liver: Liver is unremarkable in appearance without focal intrahepatic abnormalities. No intrahepatic or extrahepatic biliary ductal dilatation. Gallbladder: Unremarkable Biliary ducts: Unremarkable. Pancreas: Homogeneous enhancement without focal lesions or pancreatic ductal dilatation. No peripancreatic inflammation or organized fluid collections. Spleen: No splenomegaly Adrenal Glands: Unremarkable. Kidneys and Ureters: Kidneys are symmetric in size and enhancement, and there is no obstructive uropathy. No perinephric inflammatory changes. Ureters are normal in course and caliber. Stomach and Bowel: Stomach, small bowel loops, and colon are unremarkable. Peritoneum: No abnormal intraperitoneal fluid. No free air. Ventral Wall: No hernias. Mild diastasis recti of the anterior abdominal wall. This is noted near the level of the umbilicus. Abdominal Nodes: No retroperitoneal or mesenteric adenopathy by size criteria. Vessels: Aorta and inferior vena cava are normal in size. PELVIS: Pelvic Organs: Unremarkable. Bladder: Unremarkable. Pelvic Nodes: No enlarged lymph nodes. Miscellaneous: No hernias are seen. Bones: Visualized osseous structures appear intact without acute fracture or focal destructive lesion. No acute compression fractures of the imaged spine. IMPRESSION: CT abdomen and pelvis without acute abnormalities. Mild diastasis recti of the ventral abdominal wall. Very small hiatal hernia. Dictated by: Migel Morse M.D. on 02/23/2023 at 17:53 Approved by: Migel Morse M.D. on 02/23/2023 at 17:57
[2023-02-23] MEDS: KETOROLAC 30 MG/ML VIAL 15 MG IV (17:14)
[2023-02-23] MEDS: LORazepam 2 MG/ML INJ 0.5 MG IV (17:14)
== END 2023-02-23 18:45 | disposition home or self-care (01) ==
PROVIDERS: Emergency Provider Emergency Medicine
DX: M62.08 Separation of muscle (nontraumatic), other site (principal)
CPT/HCPCS: 74177; 80053; 81003; 81015; 81025; 83690; 85025; 96374; 96375; 96376; 99283; 99284; J1885; J2060; J2405; Q9967